=== PATIENT | male | born 1970 | race Caucasian/White ===

== ENCOUNTER → 2016-07-22 | Outpatient (CLI) | payer BC ==
[~2016-07-22] MED LIST: ASPI-232 PO; CETI10TA84 PO; CITA20TA4 PO; FLUT0.15 NAE; PROB1TAB16; TOPI25TA99 PO; TPRSR25 PO; XRL10 PO
[2016-07-22 13:23] LABS: ESTIMATED AVERAGE GLUCOSE 123 mg/dl; HA1C FLAG Normal (Normal)
[2016-07-22 14:24] LABS: ALT/SGPT 28 U/L (12-78); AST/SGOT 14 U/L (15-37); BLOOD UREA NITROGEN 13 mg/dl (7-18); BUN/CREATININE RATIO 11.8 (10-20); CARBON DIOXIDE 25 mmol/L (21-32); CHLORIDE 109 mmol/L (98-107); CHOLESTEROL 167 mg/dl (0-200); GLUCOSE 98 mg/dl (70-99); POTASSIUM 4.6 mmol/L (3.5-5.1); SODIUM 143 mmol/L (136-145); TRIGLYCERIDES 171 mg/dl (0-150); VERY LOW DENSITY LIPOPROT CALC 34 mg/dl
[2016-07-22 14:27] LABS: ALB/GLOB RATIO 1.1 (0.9-2); ALKALINE PHOSPHATASE 83 U/L (45-117); HDL CHOLESTEROL 42 mg/dl; LDL CHOLESTEROL CALCULATED 91 mg/dl
[2016-07-22 14:31] LABS: CALCIUM 8.7 mg/dl (8.5-10.1)
== END | disposition home or self-care (01) ==
LOC: C.LABMFLN 09:28
PROVIDERS: ATTEND Family Medicine
DX: E78.5 Hyperlipidemia, unspecified (principal); R73.03 Prediabetes

== ENCOUNTER → 2016-09-16 | Outpatient (CLI) | payer BC ==
--- NOTE | 2016-09-16 15:59 | DIAGNOSTIC IMAGING REPORT ---
CHEST 2 VIEWS ROUTINE CLINICAL HISTORY: COUGH HEADACHES COMPARISON STUDY: No previous studies for comparison. FINDINGS: The heart is at the upper limits of normal in size. There is no failure. There is no lobar consolidation. There are mild basilar atelectatic changes. The patient appears mildly hyperinflated. No pleural effusions are visualized.[ IMPRESSION: No active disease in the chest. Electronically signed by: Niles Sorenson M.D. 09/16/2016 3:58 PM Dictated Date/Time: 09/16/2016 3:57 PM
[2016-09-16 17:03] LABS: BASO % 0.3 %; BASO ABS # 0.02 K/uL (0-0.2); COMPLETE YES; EOS % 2.9 %; HEMATOCRIT 44.8 % (42-52); IG% 0.3 %; LYMPH % 40.8 %; LYMPH ABS # 3.07 K/uL (1.2-3.4); MEAN CELL VOLUME 88.2 fL (80-100); MEAN CORPUSCULAR HEMOGLOBIN 30.7 pg (25-34); MEAN CORPUSCULAR HGB CONC 34.8 g/dl (32-36); MEAN PLATELET VOLUME 11.3 fL (7.4-10.4); MONO % 11.8 %; NEUT % 43.9 %; PLATELET COUNT 151 K/uL (130-400); RED BLOOD COUNT 5.08 M/uL (4.7-6.1); WHITE BLOOD COUNT 7.53 K/uL (4.8-10.8)
[2016-09-16 17:21] LABS: BLOOD UREA NITROGEN 13 mg/dl (7-18); BUN/CREATININE RATIO 10.5 (10-20); CALCIUM 8.6 mg/dl (8.5-10.1); CARBON DIOXIDE 25 mmol/L (21-32); CHLORIDE 110 mmol/L (98-107); GLUCOSE 109 mg/dl (70-99); POTASSIUM 3.6 mmol/L (3.5-5.1); SODIUM 141 mmol/L (136-145)
[2016-09-16 17:32] LABS: ALB/GLOB RATIO 1.2 (0.9-2); ALKALINE PHOSPHATASE 85 U/L (45-117); ALT/SGPT 31 U/L (12-78); AST/SGOT 12 U/L (15-37); C-REACTIVE PROTEIN 0.34 mg/dl (0-0.29); RHEUMATOID FACTOR < 10.0 U/mL (0-15)
[2016-09-16 17:57] LABS: LYME DISEASE AB IGG NEG (NEG); LYME DISEASE AB IGM NEG (NEG)
[2016-09-25 16:37] LABS: EHRLICHIA CHAFF IGG AB <1:64 (<1:64); EHRLICHIA CHAFF IGM AB <1:20 (<1:20)
[2016-09-25 20:41] LABS: ANAPLASMA PHAGOCYTOPHIL IGG <1:64 (<1:64); ANAPLASMA PHAGOCYTOPHIL IGM <1:20 (<1:20)
== END | disposition home or self-care (01) ==
LOC: C.RADBC 14:58
PROVIDERS: ATTEND Physician Assistant
DX: R53.83 Other fatigue (principal); M25.50 Pain in unspecified joint

== ENCOUNTER 2017-02-24 10:56 | Emergency (ER) | payer BC ==
[~2017-02-24] VITALS: Ht 185.4 cm; Wt 133.0 kg
[2017-02-24 11:06] VITALS: TEMP 36.8; Ht 185.4 cm; Wt 133.0 kg
[2017-02-24] MEDS ORDERED: CHOL2000 PO (11:30)
[2017-02-24 11:39] LABS: BASO % 0.4 %; BASO ABS # 0.03 K/uL (0-0.2); EOS % 3.2 %; EOS ABS # 0.22 K/uL (0-0.5); HEMATOCRIT 47.4 % (42-52); HEMOGLOBIN 16.9 g/dL (14.0-18.0); IG# 0.01 K/uL (0.00-0.02); LYMPH % 35.5 %; LYMPH ABS # 2.47 K/uL (1.2-3.4); MEAN CELL VOLUME 89.8 fL (80-100); MEAN CORPUSCULAR HGB CONC 35.7 g/dl (32-36); MEAN PLATELET VOLUME 11.5 fL (7.4-10.4); MONO % 12.7 %; MONO ABS # 0.88 K/uL (0.11-0.59); NEUT % 48.1 %; NEUT ABS # 3.34 K/uL (1.4-6.5); PLATELET COUNT 167 K/uL (130-400); RED CELL DISTRIBUTION WIDTH CV 12.9 % (11.5-14.5); RED CELL DISTRIBUTION WIDTH SD 42.2 fL (36.4-46.3); WHITE BLOOD COUNT 6.95 K/uL (4.8-10.8)
[2017-02-24 11:50] LABS: PTT PATIENT 25.1 SECONDS (21.0-31.0)
[2017-02-24 12:00] LABS: CALCIUM 8.9 mg/dl (8.5-10.1); CREATININE 1.12 mg/dl (0.60-1.40); POTASSIUM 4.1 mmol/L (3.5-5.1)
--- NOTE | 2017-02-24 12:28 | DIAGNOSTIC IMAGING REPORT ---
ULTRASOUND RIGHT LOWER EXTREMITY VENOUS CLINICAL HISTORY: Right leg pain and swelling. COMPARISON STUDY: Right lower extremity venous ultrasound dated 09/02/2015. TECHNIQUE: Real-time, grayscale, and color Doppler sonography of the deep veins of the right lower extremity was performed from the inguinal crease to the calf. Compression and augmentation were utilized. FINDINGS: There is no sonographic evidence of deep venous thrombosis identified in the right lower extremity. The common femoral, superficial femoral, and popliteal veins are patent and normally compressible. The greater saphenous vein and the profunda femoris vein at the junction with the common femoral vein are clear. The visualized calf veins are patent. Newly occlusive superficial venous thrombosis in the greater saphenous vein from the proximal thigh to the mid calf. IMPRESSION: 1. There is no sonographic evidence of deep venous thrombosis identified in the right lower extremity. 2. Superficial venous thrombus is seen throughout the greater saphenous vein as above. Electronically signed by: Raj Alvarenga M.D. 02/24/2017 12:27 PM Dictated Date/Time: 02/24/2017 12:26 PM
[2017-02-24 12:52] VITALS: BP 125/82; PULSE 70; O2SAT 98
--- NOTE | 2017-02-24 13:41 | EMERGENCY ROOM VISIT NOTE ---
History First contact with patient: 11:16 Chief Complaint: LEG PAIN,LEG INJURY Stated Complaint: PAIN IN R LEG, BLOOD CLOT History of Present Illness The patient is a 46 year old male who presents to the Emergency Room with complaints of pain in his right leg. The patient reports a history of blood clots. He states that he has had pain in the right leg for one week. He does report that he recently got orthotics due to back problems and is unsure if this could be contributing to his pain. He states that the pain is in the right leg and extends from the thigh to the calf. The pain started in the calf and worked its way up into the thigh. The patient states that he "vapes" but does not smoke cigarettes. He does report that he had workup for his blood clot in the past and all of the hypercoagulable testing was performed at that time. He denies any chest pain or shortness of breath. The patient took Xarelto previous clots, but is not on any anticoagulants at this time. Review of Systems A complete 10 point review of systems was reviewed with the patient with pertinent positives and negatives as per history of present illness. All else were negative. Past Medical/Surgical History Medical Problems: (1) Aortic Valve Disorder (2) Hyperlipidemia, Unspecified (3) Nonrheumatic Aortic (Valve) Insufficiency (4) Thoracic Aortic Aneurysm, Without Rupture Surgical Problems: (1) No history of previous surgery Social History Smoking Status: Current Every Day Smoker Alcohol Use: occasionally Marital Status: Housing Status: lives with family Occupation Status: employed Current/Historical Medications Scheduled Aspirin (Aspir-81), 81 MG PO DAILY Cholecalciferol (Vitamin D3), 1 CAP PO DAILY Citalopram Hydrobromide (Citalopram Hydrobromide), 30 MG PO DAILY Metoprolol Succinate (Metoprolol Succinate ER), 25 MG PO DAILY Topiramate (Topamax ), 25 MG PO QAM Topiramate (Topamax ), 50 MG PO HS Scheduled PRN Cetirizine (Zyrtec), 10 MG PO DAILY PRN for Allergy Symptoms Fluticasone Propionate (Nasal) (Flonase Allergy Relief), 2 SPRAYS APOLONIA DAILY PRN for Allergy Symptoms Miscellaneous Medications Probiotic Product (Probiotic), Unknown Dose Physical Exam Vital Signs Date Time Temp Pulse Resp B/P (MAP) Pulse Ox O2 Delivery O2 Flow Rate FiO2 1/11/18 12:52 70 18 125/82 98 Room Air 02/24/17 11:06 36.8 74 20 138/87 93 Room Air Physical Exam VITALS: Vitals are noted on the nurse's note and reviewed by myself. Vital signs stable. GENERAL: This is a 46-year-old male, in no acute distress, nondiaphoretic, well- developed well-nourished. HEART: Regular rate and rhythm without murmurs gallops or rubs. LUNGS: Clear to auscultation bilaterally without wheezes, rales or rhonchi. EXTREMITIES: Tenderness of the right thigh and calf, palpable varicosities. There is mild erythema without obvious edema. Dorsalis pedis pulse 2+. NEURO: Patient was alert and oriented to person place and time. Medical Decision & Procedures ER Provider Diagnostic Interpretation: ULTRASOUND RIGHT LOWER EXTREMITY VENOUS CLINICAL HISTORY: Right leg pain and swelling. COMPARISON STUDY: Right lower extremity venous ultrasound dated 09/02/2015. TECHNIQUE: Real-time, grayscale, and color Doppler sonography of the deep veins of the right lower extremity was performed from the inguinal crease to the calf. Compression and augmentation were utilized. FINDINGS: There is no sonographic evidence of deep venous thrombosis identified in the right lower extremity. The common femoral, superficial femoral, and popliteal veins are patent and normally compressible. The greater saphenous vein and the profunda femoris vein at the junction with the common femoral vein are clear. The visualized calf veins are patent. Newly occlusive superficial venous thrombosis in the greater saphenous vein from the proximal thigh to the mid calf. IMPRESSION: 1. There is no sonographic evidence of deep venous thrombosis identified in the right lower extremity. 2. Superficial venous thrombus is seen throughout the greater saphenous vein as above. Laboratory Results 02/24/17 11:20 Red Blood Count 5.28, Mean Corpuscular Volume 89.8, Mean Corpuscular Hemoglobin 32.0, Mean Corpuscular Hemoglobin Concent 35.7, Mean Platelet Volume 11.5, Neutrophils (%) (Auto) 48.1, Lymphocytes (%) (Auto) 35.5, Monocytes (%) (Auto) 12.7, Eosinophils (%) (Auto) 3.2, Basophils (%) (Auto) 0.4, Neutrophils # (Auto ) 3.34, Lymphocytes # (Auto) 2.47, Monocytes # (Auto) 0.88, Eosinophils # (Auto ) 0.22, Basophils # (Auto) 0.03 02/24/17 11:20 Test 02/24/17 11:20 White Blood Count 6.95 K/uL (4.8-10.8) Red Blood Count 5.28 M/uL (4.7-6.1) Hemoglobin 16.9 g/dL (14.0-18.0) Hematocrit 47.4 % (42-52) Mean Corpuscular Volume 89.8 fL (80-100) Mean Corpuscular Hemoglobin 32.0 pg (25-34) Mean Corpuscular Hemoglobin Concent 35.7 g/dl (32-36) Platelet Count 167 K/uL (130-400) Mean Platelet Volume 11.5 fL (7.4-10.4) Neutrophils (%) (Auto) 48.1 % Lymphocytes (%) (Auto) 35.5 % Monocytes (%) (Auto) 12.7 % Eosinophils (%) (Auto) 3.2 % Basophils (%) (Auto) 0.4 % Neutrophils # (Auto) 3.34 K/uL (1.4-6.5) Lymphocytes # (Auto) 2.47 K/uL (1.2-3.4) Monocytes # (Auto) 0.88 K/uL (0.11-0.59) Eosinophils # (Auto) 0.22 K/uL (0-0.5) Basophils # (Auto) 0.03 K/uL (0-0.2) RDW Standard Deviation 42.2 fL (36.4-46.3) RDW Coefficient of Variation 12.9 % (11.5-14.5) Immature Granulocyte % (Auto) 0.1 % Immature Granulocyte # (Auto) 0.01 K/uL (0.00-0.02) Prothrombin Time 10.0 SECONDS (9.0-12.0) Prothromb Time International Ratio 1.0 (0.9-1.1) Activated Partial Thromboplast Time 25.1 SECONDS (21.0-31.0) Partial Thromboplastin Ratio 1.0 Anion Gap 3.0 mmol/L (3-11) Est Creatinine Clear Calc Drug Dose 115.4 ml/min Estimated GFR () 89.5 Estimated GFR (Non- 77.3 BUN/Creatinine Ratio 12.3 (10-20) Calcium Level 8.9 mg/dl (8.5-10.1) Medical Decision Differential diagnosis includes DVT, superficial thrombosis, cellulitis, among others. The patient is a 46-year-old male who presents today complaining of right leg pain. Ultrasound of the right leg did show extensive superficial thrombosis, but no evidence of DVT. The patient will require anticoagulation. He has history of superficial thrombosis requiring anticoagulation the past. I am unsure if this will require lifelong anticoagulation, however the patient may follow-up with his primary care provider for this. He will be placed on Xarelto. He was instructed to return here with worsening symptoms or chest pain /shortness of breath. He verbalized understanding. Based on the patient's presentation and work up, I feel the patient is stable for outpatient treatment. The patient was educated to return to the emergency department for any worsening of their current condition or new/concerning symptoms. He will follow up with his PCP. Medication Reconcilliation Current Medication List: was personally reviewed by me Blood Pressure Screening Patient's blood pressure: Normal blood pressure Impression Primary Impression: Superficial thrombosis of right lower extremity Departure Information Dispostion Home / Self-Care Condition GOOD Referrals Genoveva Ulloa PA-C (PCP) Patient Instructions My [facility] EdCaliber, Rivaroxaban oral tablets Additional Instructions Xarelto as prescribed. You may use warm compresses on the leg to help with discomfort. Follow up with your primary care provider within one week. Return here immediately for any worsening pain, chest pain, shortness of breath , or other new/concerning symptoms.
== END 2017-02-24 13:46 | disposition home or self-care (01) ==
LOC: C.EDB 10:57 → C.EDA 13:46
DX: I82.811 Embolism and thrombosis of superficial veins of right lower extremity (principal); F17.290 Nicotine dependence, other tobacco product, uncomplicated; E78.5 Hyperlipidemia, unspecified; I35.1 Nonrheumatic aortic (valve) insufficiency; I71.2 Thoracic aortic aneurysm, without rupture; Z86.718 Personal history of other venous thrombosis and embolism

== ENCOUNTER → 2017-05-30 | Outpatient (CLI) | payer BC ==
[~2017-05-30] MED LIST changes: +CHOL2000 PO; -XRL10 PO
--- NOTE | 2017-05-30 10:03 | DIAGNOSTIC IMAGING REPORT ---
R HAND MIN 3 VIEWS ROUTINE CLINICAL HISTORY: ARTHRALGIA RIGHT HAND PAIN COMPARISON: None. DISCUSSION: No fractures or dislocations are visualized. The bony mineralization appears normal for age. There is no erosive disease. There is no significant joint space narrowing. IMPRESSION: 1. No evidence of fracture 2. No evidence of erosive disease Electronically signed by: Niles Sorenson M.D. 05/30/2017 10:02 AM Dictated Date/Time: 05/30/2017 10:01 AM
--- NOTE | 2017-05-30 10:04 | DIAGNOSTIC IMAGING REPORT ---
L HAND MIN 3 VIEWS ROUTINE CLINICAL HISTORY: M25.50 Arthralgia of multiple sites bilateral LEFT HAND PAIN COMPARISON: None. DISCUSSION: No fractures or dislocations are visualized. There is no erosive disease. There is no significant joint space narrowing. IMPRESSION: 1. No evidence of fracture 2. No evidence of erosive disease Electronically signed by: Niles Sorenson M.D. 05/30/2017 10:03 AM Dictated Date/Time: 05/30/2017 10:02 AM
== END | disposition home or self-care (01) ==
LOC: C.LABBC 09:27
PROVIDERS: ATTEND Family Medicine Adult Medicine
DX: M25.50 Pain in unspecified joint (principal)

== ENCOUNTER → 2017-07-05 | Outpatient (CLI) | payer BC ==
--- NOTE | 2017-07-05 14:54 | DIAGNOSTIC IMAGING REPORT ---
ULTRASOUND RIGHT LOWER EXTREMITY VENOUS CLINICAL HISTORY: Superficial thrombophlebitis. COMPARISON STUDY: Right lower extremity venous ultrasound dated 02/24/2017. TECHNIQUE: Real-time, grayscale, and color Doppler sonography of the deep veins of the right lower extremity was performed from the inguinal crease to the calf. Compression and augmentation were utilized. FINDINGS: There is no sonographic evidence of deep venous thrombosis identified in the right lower extremity. The common femoral, superficial femoral, and popliteal veins are patent and normally compressible. The greater saphenous vein and the profunda femoris vein at the junction with the common femoral vein are clear. The visualized calf veins are patent. There is chronic appearing thrombus within the greater saphenous vein in the mid to distal thigh. Age indeterminant superficial thrombus is seen within the distal calf. IMPRESSION: 1. There is no sonographic evidence of deep venous thrombosis identified in the right lower extremity. 2. Superficial venous thrombus as above. This is similar in appearance to the 02/24/2017 examination. Electronically signed by: Raj Alvarenga M.D. 07/05/2017 2:53 PM Dictated Date/Time: 07/05/2017 2:52 PM
== END | disposition home or self-care (01) ==
LOC: C.ULTRBC 14:18
PROVIDERS: ATTEND Physician Assistant Medical
DX: I80.9 Phlebitis and thrombophlebitis of unspecified site (principal); M79.604 Pain in right leg

== ENCOUNTER 2021-11-22 20:11 | Observation (INO) ==
[2021-11-22] MEDS ORDERED: SODIUM CHLORIDE 0.9% 1000ML 500 ML IV ONE (21:05)
--- NOTE | 2021-11-22 21:06 | Emergency Department Note ---
Impression & Plan Abscess of perineum ADMIT ED Provider Note HPI: The patient is a 51-year-old male with history of prediabetes, history of DVT, on apixaban, who presents the emergency department the chief complaint of painful mass between his scrotum and his rectum that has been worsening over the past 2 days. Patient states he is noted some tenderness and pain in this area. Patient states the pain was worsening throughout the day today and therefore he came to the ED for further assessment. On arrival here to the ED the patient is hemodynamically stable, he is in mild distress secondary to pain in the perineal area under his right side of his scrotum. He denies any dysuria, states he has not had any nausea or vomiting. Patient denies any recent fevers. ROS: -Skin: Fluctuance/pain/irritation in perineal area under right scrotum *10 point review systems was conducted and is otherwise negative unless stated above *Outpatient medications and allergy history reviewed PE: General: Alert HEENT: Normocephalic, trachea midline Eyes: Extraocular eye movement is intact, no scleral erythema Pulmonary: Clear to auscultation bilaterally, no wheezing Cardio: Regular rate and rhythm GI: Abdomen is soft, nontender : No suprapubic tenderness, there is an area of fluctuance and tenderness that is palpable in the perineum to the right side of the inferior scrotum and near the right gluteal cleft without any crepitus to palpation, no overlying erythema MSK: No evidence of trauma or malformation of the extremities, no edema Skin: No evidence of rash Neuro: Alert, no focal deficits 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 No intraperitoneal involvement. At least 2 liver cysts, larger 9 cm. Fat-containing umbilical hernia. Diverticulosis without acute diverticulitis. Radiologist: Jie Platt M.D. Interventions provided in ED: -IV Zosyn, IV morphine Medical Decision Making: Patient presented to the emergency department with some pain and tenderness in the area of his right perineum inferior to the right portion of the scrotum near the right gluteal cleft. CT imaging of this area was obtained and shows evidence of a peripheral enhancing fluid collection measuring approximately 3.7 cm in maximum diameter involving the superficial soft tissues of the inferior gluteal cleft. On my examination this does extend somewhat up towards the scrotum inferiorly. There is no palpable area of maximum fluctuance that I think could be easily drained in the ED. Patient is also noted to be on anticoagulation, he has a history of prediabetes, I feel that he is high risk for worsening of this infection that could potentially lead to gangrenous infection. I did discuss the case with on-call urology given the location of the fluid collection, discussed the case with Dr. Tang who did review CT imaging on the phone with me and stated he would be in agreement for consultation early in the morning to evaluate the patient for possible incision and drainage and is in agreement for admission with initiation of IV antibiotics at this time. I discussed this with the patient he is in agreement as well. He was given a dose of IV morphine for his pain and started on Zosyn in the ED prophylactically. [facility] hospitalist service was consulted for admission with urology cons ultation and the patient was admitted in stable condition for further care. Diagnosis: 1. Perineal abscess Disposition: Admit Henry Luna DO Emergency Medicine Past Med/Surg History Medical History (Updated 11/23/21 @ 13:28 by Henry Luna DO) Anxiety Aortic insufficiency follows DR. FLOOD>ECHO YEARLY "STABLE" Chronic obstructive pulmonary disease BEGINNING STAGES>NO INHALER Clostridioides difficile infection Deviated nasal septum Dyslipidemia Gastritis WITH ULCERS DX FEB 2021 - F/U REASON FOR UPCOMING PROCEDURE GERD without esophagitis Hearing loss History of anesthesia reaction 2008> [facility] > AFTER EXTUBATION, WAS UNABLE TO BREATHE> PT UNSURE OF OTHER DETAILS. REPORTS WAS HEAVY SMOKER AT THE TIME. WAS GIVEN SHOT TO TAKE EXTRA FLUID OUT OF BODY History of colon polyps History of COVID-19 12/2019>HOSPITALIZED IN [place] (PNX BILAT. LUNG CURRIE>DID NOT REQUIRE INTUBATION) History of gross hematuria Hx of blood clots 4YRS AGO > RIGHT LEG> WAS ON BLOOD THINNER, NOW JUST ASA, NO KNOWN CAUSE, JUST SUPERFICIAL PER PT Hypertension Migraine Obstructive sleep apnea NO CPAP Osteoarthritis Perianal abscess Prediabetes RECENT A1C ELEVATED, F/U IN JULY OR AUGUST 2021 Superficial thrombosis of right lower extremity Thoracic aortic aneurysm, without rupture Thyroid nodule NO FOLLOW UP NEEDED Umbilical hernia without obstruction and without gangrene Surgical History H/O inguinal hernia repair History of ankle surgery LEFT History of appendectomy History of arthroscopy LEFT KNEE History of carpal tunnel release RIGHT History of colonoscopy History of esophagogastroduodenoscopy (EGD) History of tooth extraction Hx of lipoma REMOVED FROM [facility] E[facility] AGE 3 [place] teeth removed Family History Father Prostate cancer Diabetes Grandmother (Paternal) Diabetes Other Allergic rhinitis Asthma No family history of adverse response to anesthesia Thoracic aortic aneurysm Denies family history of Ovarian cancer Myocardial infarction Breast cancer Lung cancer Colorectal cancer Social History Smoking Status: Current every day smoker Tobacco Type: Cigarettes Age Started Using Tobacco: 14; packs per day: 0.5; Cigarettes Per Day: 1/2 pack a day.; Second Hand Exposure: No; Do You Dip or Chew Tobacco: No; Tobacco Cessation Education Requested by Patient: No Hx Alcohol Use: Yes Alcohol type: beer Alcohol Intake Frequency Comment: 1-2 x/month Hx Substance Use: No Preferred Language: Peruvian Communication Ability: Effective Visual Impairment: Limited Hearing Ability: Normal Repairer Pump Required: No Beliefs That Will Affect Care: None marital status: Current Living Situation: Spouse current occupational status: employed 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 How many Children do You have: 1 Other Information That Helps Us Care for You: No Feels Safe at Home: Yes Safety Concerns: Feels Safe At This Time Childhood Exposure to Second-Hand Smoke: Yes caffeine: Yes (coffee ) Dental Care, Regularly: Yes Physical Activity Frequency: Does not Exercise Seatbelt Use: always Sunscreen Use: Yes Assistive Devices: None Allergies Allergies Allergy/AdvReac Type Severity Reaction Status Date / Time amoxicillin AdvReac Intermediate GI SYMPTOMS Verified 11/22/21 22:46 clavulanic acid AdvReac Intermediate GI SYMPTOMS Verified 11/22/21 22:46 prednisone AdvReac Intermediate hyperactivi Verified 11/22/21 22:46 ty Home Meds Home Medications Medication Instructions Recorded Confirmed cetirizine 10 mg tablet (Zyrtec) 10 mg PO QAM 02/02/19 11/22/21 rizatriptan 5 mg tablet 5 mg PO UD PRN Headache 06/11/21 11/22/21 metoprolol succinate 25 mg 25 mg PO QPM 06/19/21 11/22/21 tablet,extended release 24 hr citalopram 20 mg tablet 20 mg PO DAILY 08/11/21 11/22/21 azelastine 205.5 mcg (0.15 %) 2 spray intranasal DAILY 11/22/21 11/22/21 nasal spray Previous Rx's Medication Instructions Recorded topiramate 50 mg tablet (Topamax) 50 mg PO HS #90 tabs 11/07/20 OneTouch Delica Plus Lancet 33 #100 ea 07/10/21 gauge (lancets) OneTouch Verio Flex meter #1 ea 07/10/21 (blood-glucose meter) OneTouch Verio test strips (blood #100 ea 07/10/21 sugar diagnostic) apixaban 5 mg tablet (Eliquis) 5 mg PO BID #60 tabs 08/28/21 pravastatin 10 mg tablet 10 mg PO QAM #90 tabs 10/03/21 Results & Data (ED) Vital Signs Vital Signs - 24 hr 11/22/21 20:16 11/22/21 21:23 11/22/21 22:29 Temperature 36.3 C L Temperature Source Temporal Artery Scan Pulse Rate 88 Pulse Rate [Apical] 89 Pulse Rhythm Regular Pulse Strength Normal Respiratory Rate 20 18 Respiratory Effort / Characteristics Non-Labored Spontaneous Respiratory Depth Normal Respiratory Pattern Regular Blood Pressure 157/91 H Blood Pressure [Right Radial Artery] 129/63 Blood Pressure Mean 113 Blood Pressure Mean [Right Radial Artery] 85 Blood Pressure Position Sitting Blood Pressure Position [Right Radial Artery] Pulse Oximetry 93 96 96 Oxygen Delivery Method Room Air Room Air Room Air Sepsis Recent Fever Within 48 Hours No Sepsis New/Unexplained Change in Mental Status N/A Sepsis Action Taken by Nursing No Action Required 11/22/21 23:59 Temperature Temperature Source Pulse Rate Pulse Rate [Apical] 85 Pulse Rhythm Pulse Strength Respiratory Rate 20 Respiratory Effort / Characteristics Respiratory Depth Respiratory Pattern Blood Pressure Blood Pressure [Right Radial Artery] 122/61 Blood Pressure Mean Blood Pressure Mean [Right Radial Artery] 81 Blood Pressure Position Blood Pressure Position [Right Radial Artery] Sitting Pulse Oximetry 94 Oxygen Delivery Method Room Air Sepsis Recent Fever Within 48 Hours Sepsis New/Unexplained Change in Mental Status Sepsis Action Taken by Nursing Laboratory Data Result diagrams: 11/22/21 21:18 11/22/21 21:18 Lab Results 11/22/21 11/22/21 11/22/21 Range/Units 21:18 21:18 21:21 WBC 9.78 (4.8-10.8) K/ul RBC 5.66 (4.63-6.08) M/uL Hgb 17.0 (14.0-18.0) g/dl Hct 49.8 (40.1-51.0) % MCV 88.0 (80.0-100.0) fL MCH 30.0 (25.0-34.0) pg MCHC 34.1 (32.0-36.0) g/dL RDW Std Deviation 41.5 (36.4-46.3) fL RDW Coeff of Kade 13.0 (11.5-14.5) % Plt Count 176 (130-400) K/uL MPV 10.9 (9.4-12.4) fL Immature Gran % (Auto) 0.3 % Neut % (Auto) 63.1 % Lymph % (Auto) 18.6 % [place] % (Auto) 14.7 % Eos % (Auto) 2.6 % Baso % (Auto) 0.7 % Neut # (Auto) 6.17 (1.4-6.5) K/uL Lymph # (Auto) 1.82 (1.2-3.4) K/uL [place] # (Auto) 1.44 H (0.24-0.82) K/uL Eos # (Auto) 0.25 (0-0.50) K/uL Baso # (Auto) 0.07 (0-0.2) K/uL Immature Gran # (Auto) 0.03 H (0.00-0.02) K/uL Sodium 139 (136-145) mmol/L Potassium 4.2 (3.5-5.1) mmol/L Chloride 106 (98-107) mmol/L Carbon Dioxide 26 (21-32) mmol/L Anion Gap 7 (3-11) BUN 13 (6-23) mg/dl Creatinine 1.04 (0.6-1.4) mg/dl Est Cr Clr Drug Dosing 116.2 ml/min Est GFR ( Amer) 94.6 ml/min Est GFR (Non-Af Amer) 81.6 ml/min BUN/Creatinine Ratio 12.5 (10-20) Glucose 80 (70-99(Fasting)) mg/dl Calcium 8.9 (8.5-10.1) mg/dl Total Bilirubin 0.8 (0.2-1.0) mg/dl AST 19 (13-39) U/L ALT 17 (7-52) U/L Alkaline Phosphatase 89 (34-104) U/L Total Protein 7.0 (6.0-8.3) gm/dl Albumin 4.1 (3.4-5.0) gm/dl Globulin 2.9 (2.5-4.0) gm/dl Albumin/Globulin Ratio 1.4 (0.9-2) Urine Color Yellow Urine Appearance Clear (Clear) Urine pH 7.0 (4.5-7.5) Ur Specific Anita 1.020 (1.000-1.030) Urine Protein Negative (Negative) Urine Glucose (UA) Negative (Negative) Urine Ketones Negative (Negative) Urine Blood Negative (Negative) Urine Nitrite Negative (Negative) Urine Bilirubin Negative (Negative) Urine Urobilinogen Negative (Negative) Ur Leukocyte Esterase Negative (Negative) SARS-CoV-2, RNA, NAAT (NEGATIVE) 11/23/21 Range/Units 00:05 WBC (4.8-10.8) K/ul RBC (4.63-6.08) M/uL Hgb (14.0-18.0) g/dl Hct (40.1-51.0) % MCV (80.0-100.0) fL MCH (25.0-34.0) pg MCHC (32.0-36.0) g/dL RDW Std Deviation (36.4-46.3) fL RDW Coeff of Kade (11.5-14.5) % Plt Count (130-400) K/uL MPV (9.4-12.4) fL Immature Gran % (Auto) % Neut % (Auto) % Lymph % (Auto) % [place] % (Auto) % Eos % (Auto) % Baso % (Auto) % Neut # (Auto) (1.4-6.5) K/uL Lymph # (Auto) (1.2-3.4) K/uL [place] # (Auto) (0.24-0.82) K/uL Eos # (Auto) (0-0.50) K/uL Baso # (Auto) (0-0.2) K/uL Immature Gran # (Auto) (0.00-0.02) K/uL Sodium (136-145) mmol/L Potassium (3.5-5.1) mmol/L Chloride (98-107) mmol/L Carbon Dioxide (21-32) mmol/L Anion Gap (3-11) BUN (6-23) mg/dl Creatinine (0.6-1.4) mg/dl Est Cr Clr Drug Dosing ml/min Est GFR ( Amer) ml/min Est GFR (Non-Af Amer) ml/min BUN/Creatinine Ratio (10-20) Glucose (70-99(Fasting)) mg/dl Calcium (8.5-10.1) mg/dl Total Bilirubin (0.2-1.0) mg/dl AST (13-39) U/L ALT (7-52) U/L Alkaline Phosphatase (34-104) U/L Total Protein (6.0-8.3) gm/dl Albumin (3.4-5.0) gm/dl Globulin (2.5-4.0) gm/dl Albumin/Globulin Ratio (0.9-2) Urine Color Urine Appearance (Clear) Urine pH (4.5-7.5) Ur Specific Anita (1.000-1.030) Urine Protein (Negative) Urine Glucose (UA) (Negative) Urine Ketones (Negative) Urine Blood (Negative) Urine Nitrite (Negative) Urine Bilirubin (Negative) Urine Urobilinogen (Negative) Ur Leukocyte Esterase (Negative) SARS-CoV-2, RNA, NAAT NEGATIVE (NEGATIVE) Administered Medications Piperacillin Sod/Tazobactam (Sod 4.5 gm/ Dextrose) 120 mls @ 30 mls/hr IV Q8H [facility]; Protocol Stop: 11/30/21 05:59 Last Infusion: 11/23/21 10:59 Dose: 0 mls/hr Documented By: Admin: 11/23/21 06:55 Dose: 30 mls/hr Documented By: RES Morphine Sulfate (Morphine Sulfate 2 Mg/Ml Carp) 2 mg IV Q3H PRN PRN Reason: Pain (1,2,3,4,5) & Pre PT Stop: 12/07/21 02:07 Last Admin: 11/23/21 08:10 Dose: 2 mg Documented By: CS Discontinued Medications Sodium Chloride (Nss 1000ml) 500 mls @ 999 mls/hr IV .Q31M ONE Stop: 11/22/21 21:35 Last Infusion: 11/22/21 22:15 Dose: 0 mls/hr Documented By: Admin: 11/22/21 21:24 Dose: 999 mls/hr Documented By: BRENDA Piperacillin Sod/Tazobactam Sod (Zosyn) 4.5 gm in 120 mls @ 240 mls/hr IV NOW ONE Stop: 11/23/21 00:19 Last Infusion: 11/23/21 00:27 Dose: 0 mls/hr Documented By: Admin: 11/22/21 23:57 Dose: 240 mls/hr Documented By: GUILHERME Lactated Ringer's (Lr) 1,000 mls @ 100 mls/hr IV .Q10H KALA Stop: 11/23/21 18:30 Last Infusion: 11/23/21 12:02 Dose: 0 mls/hr Documented By: Admin: 11/23/21 08:17 Dose: 175 mls/hr Documented By: Infusion: 11/23/21 08:13 Dose: 100 mls/hr Documented By: Admin: 11/23/21 02:30 Dose: 175 mls/hr Documented By: RES Ioversol (Ioversol 350 Mg 100ml Prefilled Syringe) 93 ml IV ONCE ONE Stop: 11/22/21 22:18 Last Admin: 11/22/21 22:17 Dose: 93 ml Documented By: RHD Morphine Sulfate (Morphine Sulfate 4 Mg/Ml 1 Ml Carp\\Vial) 4 mg IV NOW STA Stop: 11/23/21 00:06 Last Admin: 11/23/21 00:09 Dose: 4 mg Documented By: GUILHERME Imaging Data Radiologist's Impression: Abdomen/Pelvis CT 11/22/21 21:[address] WITH IV CONTRAST CT DOSE: 1875.18 mGy.cm HISTORY: Acute pain of the pelvis and scrotum with possible abscess eval for deep abscess b/t scrotum and anus TECHNIQUE: Multiaxial CT images of the abdomen and pelvis were performed following the IV administration of 93 cc of Optiray, A dose lowering technique was utilized adhering to the principles of ALARA. COMPARISON STUDY: None. FINDINGS: Subsegmental bibasilar atelectasis. Nodular hyperdense consolidative foci within the posterior basal segment left lower lobe measure up to approximately 9 mm which may represent calcific granulomata or aspirated barium. No pneumatosis or pneumoperitoneum. Mild cardiomegaly. Unremarkable spleen, pancreas, gallbladder and adrenal glands. There are a few cysts within the liver measuring up to 9 cm. Mild right hemidiaphragmatic elevation. There is patency of the hepatic and portal veins. Unremarkable left kidney. There is a heterogeneously enhancing exophytic mass within the inferior pole right kidney measuring 2.7 x 2.7 x 2.7 cm. No hydronephrosis. The bilateral renal veins appear patent. Partial distention of the urinary bladder with mild wall thickening. Possible small fat filled right inguinal hernia with a portion of the urinary bladder extending towards the hernia ostium. Unremarkable prostate. Atherosclerosis of the aorta. Retroaortic left renal vein. No lymphadenopathy. Duodenal diverticulum. No bowel obstruction or bowel wall thickening. Colonic diverticulosis. Mild fecal retention. Appendectomy. Diastases recti with fat filled umbilical hernia, diastases of 2.3 cm. There is a peripherally enhancing fluid collection within the midline inferior gluteal cleft extending into the perineum measuring 4.4 x 2.3 x 3.5 cm. Inflammatory stranding extends into the posterior scrotum. No perianal fistula or supralevator extension identified. No acute fracture. Sclerotic focus within the L5 vertebral body is indeterminate, possibly a bone island. IMPRESSION: 1. 4.4 cm abscess of the inferior gluteal cleft extending into the perineum. Inflammatory stranding extends into the posterior scrotum. No perianal fistula o r supralevator extension. 2. 2.7 cm heterogeneously enhancing mass of the inferior pole right kidney. Renal cell carcinoma is the diagnosis of exclusion. This finding was rafaela led/faxed to the floor at time of dictation. 3. No adenopathy or evidence of metastatic disease. 4. No bowel obstruction or bowel wall thickening. 5. Colonic diverticulosis. 6. Additional findings as above. ACT 112: Positive. There are findings on this exam that require communication between the performing entity and the patient following Patient Test Result Information Act ([place] Act 112) guidelines. The above report was generated using voice recognition software. It may contain grammatical, syntax or spelling errors. Electronically signed by: Twin Coles M.D. 11/23/2021 8:10 AM Discharge Plan Visit Data Chief Complaint: Pilonidal Cyst Stated Complaint: LUMP IN RECTAL AREA ED Provider: Henry Luna Discharge Problem: Abscess of perineum Patient Disposition: Admitted As Inpatient Discharge Instructions Interventions: ED Discharge Assessment Last Done: 11/23/21 01:52
[2021-11-22 21:42] LABS: Appearance Urine Clear (Clear); Bilirubin Urine Negative (Negative); Blood Urine Negative (Negative); Color Urine Yellow; Glucose Urine UA Negative (Negative); Ketones Urine Negative (Negative); Leukocyte Esterase Urine Negative (Negative); Nitrite Urine Negative (Negative); Protein Urine Negative (Negative); Urobilinogen Urine Negative (Negative)
[2021-11-22 21:51] LABS: Basophils # (auto) 0.07 K/uL (0-0.2); Basophils % (auto) 0.7 %; Eosinophils # (auto) 0.25 K/uL (0-0.50); Eosinophils % (auto) 2.6 %; Hematocrit (blood only) 49.8 % (40.1-51.0); Immature Granulocytes # (auto) 0.03 K/uL (0.00-0.02); Immature Granulocytes % (auto) 0.3 %; Lymphocytes # (auto) 1.82 K/uL (1.2-3.4); Lymphocytes % (auto) 18.6 %; Mean Corpuscular Hgb Conc 34.1 g/dL (32.0-36.0); Mean Platelet Volume 10.9 fL (9.4-12.4); Monocytes # (auto) 1.44 K/uL (0.24-0.82); Monocytes % (auto) 14.7 %; Neutrophils # (auto) 6.17 K/uL (1.4-6.5); Neutrophils % (auto) 63.1 %; Platelet Count 176 K/uL (130-400); RDW Standard Deviation 41.5 fL (36.4-46.3); Red Blood Count 5.66 M/uL (4.63-6.08); White Blood Count 9.78 K/ul (4.8-10.8)
[2021-11-22 22:03] LABS: Albumin Globulin Ratio 1.4 (0.9-2); Albumin Level 4.1 gm/dl (3.4-5.0); BUN Creatinine Ratio 12.5 (10-20); Bilirubin,Total 0.8 mg/dl (0.2-1.0); Calcium 8.9 mg/dl (8.5-10.1); Creatinine Clr Calc Pharmacy 116.2 ml/min; Est GFR (African American) 94.6 ml/min; Est GFR (Non-African American) 81.6 ml/min; Globulin 2.9 gm/dl (2.5-4.0); Potassium 4.2 mmol/L (3.5-5.1)
[2021-11-22] MEDS ORDERED: IOVERSOL 350 MG 100mL Prefilled Syringe IV ONE (22:17)
[2021-11-22] MEDS ORDERED: PIPERACILLIN/TAZOBACTAM 4.5 GM/120 ML BAG IV ONE (23:50)
[2021-11-23] MEDS ORDERED: MoRPHine SULFATE 4 MG/ML 1 ML CARP\\VIAL IV STA (00:05)
--- NOTE | 2021-11-23 01:06 | History & Physical Report ---
Date of Service November 23, 2021 Assessment & Plan (1) Perianal abscess: Plan: Mr. Brown is a 51 yo male with PMHx of DVT currently on anticoagulation, migraine, HLD, aortic insufficiency, thoracic aortic aneurysm, GERD, anxiety, and prediabetes admitted to [facility] on 11/23/21 due to perianal abscess. Perianal abscess - Perineum with significant tenderness to palpation - Currently afebrile and without leukocytosis - CT abd/pelvis STATRAD read 11/23/21: peripheral enhancing fluid collection measures 2.5 x 3.7 x 3 cm involving the superficial soft tissues of the inferior gluteal cleft - Urology consulted. Recommends admission, possible I&D tomorrow - Will make patient NPO in preparation for potential procedure tomorrow - Continue IV abx therapy with Zosyn until abx can be converted to po - Continue with IV analgesic - Repeat CBC in AM DVT - Patient with recent distal DVT with large clot burden of great saphenous vein, for which he is on Eliquis for anticoagulation - Patient notes that he is only intending to be on AC for 1 more week (for total of 3 months AC) - Will hold tomorrow morning's dose of Eliquis in preparation for potential procedure - No current LE pain, swelling, or rash Hyperlipidemia - Continue home pravastatin Thoracic aortic aneurysm w/o rupture - Patient followed by cardiology - Notes reviewed; last OVN 08/11/21 - Patient to avoid valsalva maneuver while lifting and no heavy lifting - Continue home metoprolol Prediabetes - States diet controlled; no medical therapy - Will check BSGs ACHS and q6h while NPO GERD - Patient previously on Nexium (states stopped about 2 months ago) - Reports recent increase in symptoms of GERD - Encouraged patient to f/u with PCP and outpatient GI as established Anxiety - Continue home Celexa Migraines - Continue home Topamax FENGI: NPO, IVF with LR @ 175 cc/hr DVT PPx: On Eliquis at home; holding in case of potential procedure tomorrow Dispo: Admit to medsurg Code status: FULL CODE (2) Dyslipidemia: (3) Thoracic aortic aneurysm, without rupture: (4) Prediabetes: (5) GERD without esophagitis: (6) Anxiety: (7) DVT (deep venous thrombosis): Plan Pt seen/examined in conjunction with resident MD Kyung Meraz. Orders and plan of admission discussed with resident. 51 y/o M Hx HTN, HLD, DVT, aortic regurgitation, aortic aneurysm, obese. Recently developed pain and swelling between anus and scrotum. A 2.5 x 3.7cm abscess was demonstrated on CT. O/E Gen: AAO x 3 Head/neck: Atraumatic, No JVD Heart: S1,2 R, no murmurs Lungs/chest: CTAB Abd: NT, ND, BS + Ext: No CCE Neuro: No deficits Skin: No ulcers or rashes P: 1) Abscess - urology to perform I&D. Placed on Zosyn. 2) HTN - cont metoprolol 3) HLD - cont statin 4) Pt is taking Eliquis for a DVT which is held prior to the procedure. Full code Total time for this admit including review of labs, meds, imaging, records - discussion with pt and ER attending - 35 min History of Present Illness Primary Care Provider: Cuba Alvarado DO Patient is a 51 yo male with PMHx of DVT currently on anticoagulation, migraine, HLD, aortic insufficiency, thoracic aortic aneurysm, GERD, anxiety, and prediabetes who presented to [facility] ER on 11/22/21 due to perineal pain. Patient states that 2 days ago, he noticed an acute onset of pain between the scrotum and anus with an associated "lump." Pain has progressively worsened and was rated at a 7/10 today. The pain is exacerbated with movement or sitting. Patient got a mirror to try to visualize the area of pain and noticed that there was some swelling and the area "looked purple." There is no reported discharge, drainage, or erythema. He has no hx of similar episodes. Patient denies fever, chills, abd pain, nausea, vomiting, diarrhea, constipation, urinary symptoms (including hematuria, dysuria, urinary frequency, or urinary retention), back pain, weakness, numbness, or tingling. In the ER, CT abd/pelvis revealed a "peripheral enhancing fluid collection measures 2.5 x 3.7 x 3 cm involving the superficial soft tissues of the inferior gluteal cleft." Labs unremarkable including no leukocytosis. UA unremarkable. Patient hemodynamically stable. He notes that IV analgesic has improved the pain from a 7/10 to 1-2/10. COVID negative. Urology was consulted and recommended admission for I&D tomorrow. Allergies Allergy/AdvReac Type Severity Reaction Status Date / Time amoxicillin AdvReac Intermediate GI SYMPTOMS Verified 11/22/21 22:46 clavulanic acid AdvReac Intermediate GI SYMPTOMS Verified 11/22/21 22:46 prednisone AdvReac Intermediate hyperactivi Verified 11/22/21 22:46 ty Home Medications Medication Instructions Recorded Confirmed Type cetirizine 10 mg tablet (Zyrtec) 10 mg PO QAM 02/02/19 11/22/21 History topiramate 50 mg tablet (Topamax) 50 mg PO HS #90 tabs 11/07/20 11/22/21 Rx rizatriptan 5 mg tablet 5 mg PO UD PRN Headache 06/11/21 11/22/21 History metoprolol succinate 25 mg 25 mg PO QPM 06/19/21 11/22/21 History tablet,extended release 24 hr OneTouch Delica Plus Lancet 33 #100 ea 07/10/21 10/30/21 Rx gauge (lancets) OneTouch Verio Flex meter #1 ea 07/10/21 10/30/21 Rx (blood-glucose meter) OneTouch Verio test strips (blood #100 ea 07/10/21 10/30/21 Rx sugar diagnostic) citalopram 20 mg tablet 20 mg PO DAILY 08/11/21 11/22/21 History apixaban 5 mg tablet (Eliquis) 5 mg PO BID #60 tabs 08/28/21 11/22/21 Rx pravastatin 10 mg tablet 10 mg PO QAM #90 tabs 10/03/21 11/22/21 Rx azelastine 205.5 mcg (0.15 %) 2 spray intranasal DAILY 11/22/21 11/22/21 History nasal spray Past Med/Surg History Medical History (Updated 11/23/21 @ 01:20 by Kyung Meraz DO) Anxiety Aortic insufficiency follows DR. FLOOD>ECHO YEARLY "STABLE" Chronic obstructive pulmonary disease BEGINNING STAGES>NO INHALER Clostridioides difficile infection Deviated nasal septum Dyslipidemia Gastritis WITH ULCERS DX FEB 2021 - F/U REASON FOR UPCOMING PROCEDURE GERD without esophagitis Hearing loss History of anesthesia reaction 2008> [facility] > AFTER EXTUBATION, WAS UNABLE TO BREATHE> PT UNSURE OF OTHER DE TAILS. REPORTS WAS HEAVY SMOKER AT THE TIME. WAS GIVEN SHOT TO TAKE EXTRA FLUID OUT OF BODY History of colon polyps History of COVID-19 12/2019>HOSPITALIZED IN [place] (PNX BILAT. LUNG CURRIE>DID NOT REQUIRE INTUBATION) History of gross hematuria Hx of blood clots 4YRS AGO > RIGHT LEG> WAS ON BLOOD THINNER, NOW JUST ASA, NO KNOWN CAUSE, JUST SUPERFICIAL PER PT Hypertension Migraine Obstructive sleep apnea NO CPAP Osteoarthritis Perianal abscess Prediabetes RECENT A1C ELEVATED, F/U IN JULY OR AUGUST 2021 Superficial thrombosis of right lower extremity Thoracic aortic aneurysm, without rupture Thyroid nodule NO FOLLOW UP NEEDED Umbilical hernia without obstruction and without gangrene Surgical History H/O inguinal hernia repair History of ankle surgery LEFT History of appendectomy History of arthroscopy LEFT KNEE History of carpal tunnel release RIGHT History of colonoscopy History of esophagogastroduodenoscopy (EGD) History of tooth extraction Hx of lipoma REMOVED FROM BEHIND BILAT EARS AGE 3 [place] teeth removed Family History Father Prostate cancer Diabetes Grandmother (Paternal) Diabetes Other Allergic rhinitis Asthma No family history of adverse response to anesthesia Thoracic aortic aneurysm Denies family history of Ovarian cancer Myocardial infarction Breast cancer Lung cancer Colorectal cancer Social History Smoking Status: Current every day smoker Tobacco Type: Cigarettes Age Started Using Tobacco: 14; packs per day: 0.5; Cigarettes Per Day: 1/2 pack a day.; Second Hand Exposure: No; Do You Dip or Chew Tobacco: No; Tobacco Cessation Education Requested by Patient: No Hx Alcohol Use: Yes Alcohol type: beer Alcohol Intake Frequency Comment: 1-2 x/month Hx Substance Use: No Preferred Language: Libyan Communication Ability: Effective Visual Impairment: Limited Hearing Ability: Normal Unix Systems Administrator Required: No Beliefs That Will Affect Care: None marital status: Current Living Situation: Spouse current occupational status: employed 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 Well developed and well nourished. Vital signs reviewed as above. EYES: EOMI. Anicteric sclerae. HENT: Moist mucous membranes. RESPIRATORY: Clear to auscultation bilaterally. No wheezing, rales, or rhonchi. CARDIOVASCULAR: Regular rate and rhythm. No murmurs. No JVD. ABDOMEN: Soft and non-tender. Normal bowel sounds. GENITOURINARY: Significant perineal tenderness to palpation. The perineum is inflamed but no central lesion. No discharge or drainage. No erythema. EXTREMITIES: No edema. Non-tender. SKIN: Warm, dry. NEUROLOGIC: A/O x3. Normal speech. No focal neurological deficits. No sensorimotor deficits. PSYCHIATRIC: Cooperative. Appropriate mood and affect. Results & Data Results & Data ([facility]) Vital Signs (Past 12 Hours) Vital Signs Temp Pulse Pulse Resp BP BP Pulse Ox 11/22/21 23:59 85 20 122/61 94 11/22/21 22:29 89 18 129/63 96 11/22/21 21:23 96 11/22/21 20:16 36.3 C L 88 20 157/91 H 93 O2 Del Method 11/22/21 23:59 Room Air 11/22/21 22:29 Room Air 11/22/21 21:23 Room Air 11/22/21 20:16 Room Air Laboratory Results 11/23/21 11/22/21 11/22/21 Range/Units 00:05 21:21 21:18 WBC (4.8-10.8) K/ul RBC (4.63-6.08) M/uL Hgb (14.0-18.0) g/dl Hct (40.1-51.0) % MCV (80.0-100.0) fL MCH (25.0-34.0) pg MCHC (32.0-36.0) g/dL RDW Std Deviation (36.4-46.3) fL RDW Coeff of Kade (11.5-14.5) % Plt Count (130-400) K/uL MPV (9.4-12.4) fL Immature Gran % (Auto) % Neut % (Auto) % Lymph % (Auto) % Foard % (Auto) % Eos % (Auto) % Baso % (Auto) % Neut # (Auto) (1.4-6.5) K/uL Lymph # (Auto) (1.2-3.4) K/uL Foard # (Auto) (0.24-0.82) K/uL Eos # (Auto) (0-0.50) K/uL Baso # (Auto) (0-0.2) K/uL Immature Gran # (Auto) (0.00-0.02) K/uL Sodium 139 (136-145) mmol/L Potassium 4.2 (3.5-5.1) mmol/L Chloride 106 (98-107) mmol/L Carbon Dioxide 26 (21-32) mmol/L Anion Gap 7 (3-11) BUN 13 (6-23) mg/dl Creatinine 1.04 (0.6-1.4) mg/dl Est Cr Clr Drug Dosing 116.2 ml/min Est GFR ( Amer) 94.6 ml/min Est GFR (Non-Af Amer) 81.6 ml/min BUN/Creatinine Ratio 12.5 (10-20) Glucose 80 (70-99(Fasting)) mg/dl Calcium 8.9 (8.5-10.1) mg/dl Total Bilirubin 0.8 (0.2-1.0) mg/dl AST 19 (13-39) U/L ALT 17 (7-52) U/L Alkaline Phosphatase 89 (34-104) U/L Total Protein 7.0 (6.0-8.3) gm/dl Albumin 4.1 (3.4-5.0) gm/dl Globulin 2.9 (2.5-4.0) gm/dl Albumin/Globulin Ratio 1.4 (0.9-2) Urine Color Yellow Urine Appearance Clear (Clear) Urine pH 7.0 (4.5-7.5) Ur Specific [place] 1.020 (1.000-1.030) Urine Protein Negative (Negative) Urine Glucose (UA) Negative (Negative) Urine Ketones Negative (Negative) Urine Blood Negative (Negative) Urine Nitrite Negative (Negative) Urine Bilirubin Negative (Negative) Urine Urobilinogen Negative (Negative) Ur Leukocyte Esterase Negative (Negative) SARS-CoV-2, RNA, NAAT NEGATIVE (NEGATIVE) 11/22/21 Range/Units 21:18 WBC 9.78 (4.8-10.8) K/ul RBC 5.66 (4.63-6.08) M/uL Hgb 17.0 (14.0-18.0) g/dl Hct 49.8 (40.1-51.0) % MCV 88.0 (80.0-100.0) fL MCH 30.0 (25.0-34.0) pg MCHC 34.1 (32.0-36.0) g/dL RDW Std Deviation 41.5 (36.4-46.3) fL RDW Coeff of Kade 13.0 (11.5-14.5) % Plt Count 176 (130-400) K/uL MPV 10.9 (9.4-12.4) fL Immature Gran % (Auto) 0.3 % Neut % (Auto) 63.1 % Lymph % (Auto) 18.6 % Foard % (Auto) 14.7 % Eos % (Auto) 2.6 % Baso % (Auto) 0.7 % Neut # (Auto) 6.17 (1.4-6.5) K/uL Lymph # (Auto) 1.82 (1.2-3.4) K/uL Foard # (Auto) 1.44 H (0.24-0.82) K/uL Eos # (Auto) 0.25 (0-0.50) K/uL Baso # (Auto) 0.07 (0-0.2) K/uL Immature Gran # (Auto) 0.03 H (0.00-0.02) K/uL Sodium (136-145) mmol/L Potassium (3.5-5.1) mmol/L Chloride (98-107) mmol/L Carbon Dioxide (21-32) mmol/L Anion Gap (3-11) BUN (6-23) mg/dl Creatinine (0.6-1.4) mg/dl Est Cr Clr Drug Dosing ml/min Est GFR ( Amer) ml/min Est GFR (Non-Af Amer) ml/min BUN/Creatinine Ratio (10-20) Glucose (70-99(Fasting)) mg/dl Calcium (8.5-10.1) mg/dl Total Bilirubin (0.2-1.0) mg/dl AST (13-39) U/L ALT (7-52) U/L Alkaline Phosphatase (34-104) U/L Total Protein (6.0-8.3) gm/dl Albumin (3.4-5.0) gm/dl Globulin (2.5-4.0) gm/dl Albumin/Globulin Ratio (0.9-2) Urine Color Urine Appearance (Clear) Urine pH (4.5-7.5) Ur Specific [place] (1.000-1.030) Urine Protein (Negative) Urine Glucose (UA) (Negative) Urine Ketones (Negative) Urine Blood (Negative) Urine Nitrite (Negative) Urine Bilirubin (Negative) Urine Urobilinogen (Negative) Ur Leukocyte Esterase (Negative) SARS-CoV-2, RNA, NAAT (NEGATIVE) Diagnostic Findings [facility] Patient: OVIDIO BROWN (Male) : 66 Status: ER Date: 11/22/21 22:26 Room #: History: 93 ML OPTIRAY, NO APPENDIX, eval for zuleyka p abscess b/t scrotum and anus Slices: [phone] Priors: Tech: Sonny Ferguson @ [id number] Exams: CT ABDOMEN & PELVIS With Contrast Contrast: IV Amt: 93 ML OPTIRAY Accession Numbers: [id number] Referring Physician: REFERRED SELF Preliminary Findings Only See Final Report For Complete Findings CT ABDOMEN & PELVIS With Contrast: Peripheral enhancing fluid collection measures 2.5 x 3.7 x 3 cm involving the superficial soft tissues of the inferior gluteal cleft. No intraperitoneal involvement. At least 2 liver cysts, larger 9 cm. Fat-containing umbilical hernia. Diverticulosis without acute diverticulitis. Radiologist: Jie Platt M.D. Study ready at 22:30 and initial results transmitted at 22:54 *This report constitutes a preliminary interpretation only. Non-acute findings felt to be unrelated to the clinical presentation may not be discussed in this report. The study will be interpreted and a final report will be generated by the local Radiologist the following shift. To reach the [facility] radiology department call [phone]. If a discrepancy is found between the preliminary and final interpretations of this study, please notify us via our Client Portal at [email or web address], under QA Exams. You can also fax this report with a description of the discrepancy, or include the final report, to our daytime fax number [phone]. If faxing, please indicate the severity of discrepancy using one of the following categories: [ ] 1 - Agree/Informational [ ] 2 - Unlikely to Affect Management [ ] 3 - Possible Eventual Change of Management [ ] 4 - Probable Immediate Change of Management For all other patient related information, please fax us at [phone]. [id number] Code Status & VTE Plan VTE Prophylaxis Plan VTE Prophylaxis will be ordered: Yes Resident Activity Tracking Resident Involvement: Resident Care Provided Care Provided: Adult Hospital Medicine
[2021-11-23] MEDS ORDERED: ACETAMINOPHEN 325 MG TAB PO PRN (02:08)
[2021-11-23] MEDS ORDERED: POLYETHYLENE (MIRALAX) 17 GM PACK PO PRN (02:08)
[2021-11-23] MEDS ORDERED: MoRPHine SULFATE 4 MG/ML 1 ML CARP\\VIAL IV PRN (02:08)
[2021-11-23] MEDS ORDERED: ALUMINUM/MAGNESIUM SUSP 30 ML UDC PO PRN (02:08)
[2021-11-23] MEDS: LACTATED RINGER'S 1,000 ML IV SCH ×2 (02:30→08:17)
[2021-11-23] MEDS ORDERED: PIPERACILLIN/TAZOBACTAM 4.5 GM in DEXTROSE 5% 100 ML IV SCH (06:00)
--- NOTE | 2021-11-23 07:48 | Urology Consultation ---
Date of Consultation November 23, 2021 Assessment & Plan (1) Gluteal abscess: Plan 51-year-old male with perineal discomfort and CT scan showing a small gluteal abscess. Saw and examined patient today. Do not palpate any appreciable abscess or anything near the scrotum. Review of CT scan shows that this may be more in the gluteal region. That being said, I discussed options with patient which would be observation versus incision and drainage. I discussed that if he had an I&D, the area would be left open and it would require dressing changes and packing twice daily which can be fairly uncomfortable. Given its rather small size, lack of fevers or leukocytosis, and inability to palpate on exam, would recommend continued broad-spectrum antibiotics for at least another 24 hours. Would recommend gram-positive coverage as these sometimes can be multi microbial. This will additionally allow Eliquis to get further out of his system. The abscess is small enough that it may be able to be treated conservatively as I fear that it will be difficult to find and he will not heal well given his diagnosis of prediabetes and his body habitus. Can reevaluate patient tomorrow morning and if not improving on exam, can discuss incision and drainage. At that time may need to involve general surgery based on location. History of Present Illness Reason for Consultation: Perineal/gluteal abscess Attending Physician: Farzad Jackson MD History of Present Illness 51-year-old male who presented the hospital last night with several days of peritoneal discomfort. He denies any fevers. He denies any previous infections. He has been afebrile with stable vitals. Labs showed white blood cell count of 10.9 last night and 9.7 this morning. Creatinine stable at roughly 1. Urinalysis was negative. CT scan of the abdomen and pelvis was performed which I independently reviewed. This shows a 2.5 x 3.7 x 3 cm area of enhancing fluid collection in the superficial soft tissue of the inferior gluteal cleft. He was admitted to the hospital and started on Zosyn. He reports a diagnosis of prediabetes. He has a history of a DVT and is on Eliquis. Allergies Allergy/AdvReac Type Severity Reaction Status Date / Time amoxicillin AdvReac Intermediate GI SYMPTOMS Verified 11/22/21 22:46 clavulanic acid AdvReac Intermediate GI SYMPTOMS Verified 11/22/21 22:46 prednisone AdvReac Intermediate hyperactivi Verified 11/22/21 22:46 ty Home Medications Medication Instructions Recorded Confirmed Type cetirizine 10 mg tablet (Zyrtec) 10 mg PO QAM 02/02/19 11/22/21 History topiramate 50 mg tablet (Topamax) 50 mg PO HS #90 tabs 11/07/20 11/22/21 Rx rizatriptan 5 mg tablet 5 mg PO UD PRN Headache 06/11/21 11/22/21 History metoprolol succinate 25 mg 25 mg PO QPM 06/19/21 11/22/21 History tablet,extended release 24 hr OneTouch Delica Plus Lancet 33 #100 ea 07/10/21 10/30/21 Rx gauge (lancets) OneTouch Verio Flex meter #1 ea 07/10/21 10/30/21 Rx (blood-glucose meter) OneTouch Verio test strips (blood #100 ea 07/10/21 10/30/21 Rx sugar diagnostic) citalopram 20 mg tablet 20 mg PO DAILY 08/11/21 11/22/21 History apixaban 5 mg tablet (Eliquis) 5 mg PO BID #60 tabs 08/28/21 11/22/21 Rx pravastatin 10 mg tablet 10 mg PO QAM #90 tabs 10/03/21 11/22/21 Rx azelastine 205.5 mcg (0.15 %) 2 spray intranasal DAILY 11/22/21 11/22/21 History nasal spray Patient History Medical History (Updated 11/23/21 @ 13:28 by Henry Luna DO) Anxiety Aortic insufficiency follows DR. FLOOD>ECHO YEARLY "STABLE" Chronic obstructive pulmonary disease BEGINNING STAGES>NO INHALER Clostridioides difficile infection Deviated nasal septum Dyslipidemia Gastritis WITH ULCERS DX FEB 2021 - F/U REASON FOR UPCOMING PROCEDURE GERD without esophagitis Hearing loss History of anesthesia reaction 2008> [facility] > AFTER EXTUBATION, WAS UNABLE TO BREATHE> PT UNSURE OF OTHER D ETAILS. REPORTS WAS HEAVY SMOKER AT THE TIME. WAS GIVEN SHOT TO TAKE EXTRA FLUID OUT OF BODY History of colon polyps History of COVID-19 12/2019>HOSPITALIZED IN [place] (PNX BILAT. LUNG CURRIE>DID NOT REQUIRE INTUBATION) History of gross hematuria Hx of blood clots 4YRS AGO > RIGHT LEG> WAS ON BLOOD THINNER, NOW JUST ASA, NO KNOWN CAUSE, JUST SUPERFICIAL PER PT Hypertension Migraine Obstructive sleep apnea NO CPAP Osteoarthritis Perianal abscess Prediabetes RECENT A1C ELEVATED, F/U IN JULY OR AUGUST 2021 Superficial thrombosis of right lower extremity Thoracic aortic aneurysm, without rupture Thyroid nodule NO FOLLOW UP NEEDED Umbilical hernia without obstruction and without gangrene Surgical History H/O inguinal hernia repair History of ankle surgery LEFT History of appendectomy History of arthroscopy LEFT KNEE History of carpal tunnel release RIGHT History of colonoscopy History of esophagogastroduodenoscopy (EGD) History of tooth extraction Hx of lipoma REMOVED FROM BEHIND BILAT EARS AGE 3 [place] teeth removed Family History Father Prostate cancer Diabetes Grandmother (Paternal) Diabetes Other Allergic rhinitis Asthma No family history of adverse response to anesthesia Thoracic aortic aneurysm Denies family history of Ovarian cancer Myocardial infarction Breast cancer Lung cancer Colorectal cancer Social History Smoking Status: Current every day smoker Tobacco Type: Cigarettes Age Started Using Tobacco: 14; packs per day: 0.5; Cigarettes Per Day: 1/2 pack a day.; Second Hand Exposure: No; Do You Dip or Chew Tobacco: No; Tobacco Cessation Education Requested by Patient: No Hx Alcohol Use: Yes Alcohol type: beer Alcohol Intake Frequency Comment: 1-2 x/month Hx Substance Use: No Preferred Language: Uzbek Communication Ability: Effective Visual Impairment: Limited Hearing Ability: Normal Final Coat Sprayer Required: No Beliefs That Will Affect Care: None marital status: Current Living Situation: Spouse current occupational status: employed current occupation: works in a [employer] How many Children do You have: 1 Other Information That Helps Us Care for You: No Feels Safe at Home: Yes Safety Concerns: Feels Safe At This Time Childhood Exposure to Second-Hand Smoke: Yes caffeine: Yes (coffee ) Dental Care, Regularly: Yes Physical Activity Frequency: Does not Exercise Seatbelt Use: always Sunscreen Use: Yes Assistive Devices: None Review of Systems Review of Systems: 14 point review of systems negative outside of what is listed above in HPI Physical Exam Physical Exam: General: Alert and oriented, no acute distress HEENT: Normocephalic, mucous membranes moist Pulmonary: Nonlabored respirations Abdomen: Nondistended : Circumcised phallus with orthotopic meatus. Testicles is a bilaterally. Tenderness to palpation over perineum with a small amount of induration but no crepitus or fluctuation.. Extremities: Moves all 4 spontaneously Neuro: No gross deficits Skin: Warm, dry, no rashes noted Results & Data ([facility]) Vital Signs (Past 12 Hours) Vital Signs Temp Pulse Pulse Pulse Resp BP BP 11/23/21 02:00 11/23/21 02:00 11/23/21 02:00 36.4 C L 84 16 140/82 11/23/21 01:52 78 20 146/82 H 11/22/21 23:59 85 20 11/22/21 22:29 89 18 11/22/21 21:23 11/22/21 20:16 36.3 C L 88 20 157/91 H BP Pulse Ox O2 Del Method 11/23/21 02:00 Room Air 11/23/21 02:00 Room Air 11/23/21 02:00 93 Room Air 11/23/21 01:52 98 Room Air 11/22/21 23:59 122/61 94 Room Air 11/22/21 22:29 129/63 96 Room Air 11/22/21 21:23 96 Room Air 11/22/21 20:16 93 Room Air PG Care Time/CCT Total # of Minutes Spent Total Time Spent with Patient: Total time spent is greater than 50% in coordination of care (as documented) at patient's floor/unit and/or counseling patient: Coding Level of Care Code 62754 Inpt Consult Level 5 Diagnoses Gluteal abscess L02.31
[2021-11-23] MEDS: MoRPHine SULFATE 2 MG/ML CARP IV PRN ×2 (08:10→15:26)
--- NOTE | 2021-11-23 08:11 | CT Scan Report ---
ABDOMEN AND PELVIS CT WITH IV CONTRAST CT DOSE: 1875.18 mGy.cm HISTORY: Acute pain of the pelvis and scrotum with possible abscess eval for deep abscess b/t scrotu m and anus TECHNIQUE: Multiaxial CT images of the abdomen and pelvis were performed following the IV administrat ion of 93 cc of Optiray, A dose lowering technique was utilized adhering to the principles of ALARA. COMPARISON STUDY: None. FINDINGS: Subsegmental bibasilar atelectasis. Nodular hyperdense consolidative foci within the warp drawer ior basal segment left lower lobe measure up to approximately 9 mm which may represent calcific granu lomata or aspirated barium. No pneumatosis or pneumoperitoneum. Mild cardiomegaly. Unremarkable spleen, pancreas, gallbladder and adrenal glands. There are a few cysts within the liver measuring up to 9 cm. Mild right hemidiaphragmatic elevation. There is patency of the hepatic and po rtal veins. Unremarkable left kidney. There is a heterogeneously enhancing exophytic mass within the inferior pole right kidney measuring 2.7 x 2.7 x 2.7 cm. No hydronephrosis. The bilateral renal veins appear patent. Partial distention of the urinary bladder with mild wall thickening. Possible small f at filled right inguinal hernia with a portion of the urinary bladder extending towards the hernia os tium. Unremarkable prostate. Atherosclerosis of the aorta. Retroaortic left renal vein. No lymphadeno marianne. Duodenal diverticulum. No bowel obstruction or bowel wall thickening. Colonic diverticulosis. Mild fe rafaela retention. Appendectomy. Diastases recti with fat filled umbilical hernia, diastases of 2.3 cm. T here is a peripherally enhancing fluid collection within the midline inferior gluteal cleft extending into the perineum measuring 4.4 x 2.3 x 3.5 cm. Inflammatory stranding extends into the posterior sc rotum. No perianal fistula or supralevator extension identified. No acute fracture. Sclerotic focus w ithin the L5 vertebral body is indeterminate, possibly a bone island. IMPRESSION: 1. 4.4 cm abscess of the inferior gluteal cleft extending into the perineum. Inflammatory stranding e xtends into the posterior scrotum. No perianal fistula or supralevator extension. 2. 2.7 cm heterogeneously enhancing mass of the inferior pole right kidney. Renal cell carcinoma is t he diagnosis of exclusion. This finding was called/faxed to the floor at time of dictation. 3. No adenopathy or evidence of metastatic disease. 4. No bowel obstruction or bowel wall thickening. 5. Colonic diverticulosis. 6. Additional findings as above. ACT 112: Positive. There are findings on this exam that require communication between the performing entity and the patient following Patient Test Result Information Act ([place] Act 112) guidelines. The above report was generated using voice recognition software. It may contain grammatical, syntax o r spelling errors. Electronically signed by: Twin Coles M.D. 11/23/2021 8:10 AM
[2021-11-23] MEDS ORDERED: APIXABAN 5 MG TABLET PO SCH (09:00)
--- NOTE | 2021-11-23 09:40 | Hospitalist Progress Note ---
Date of Service November 23, 2021 Assessment & Plan (1) Perianal abscess: Plan: Mr. Brown is a 51 yo male with PMHx of DVT currently on anticoagulation, migraine, HLD, aortic insufficiency, thoracic aortic aneurysm, GERD, anxiety, and prediabetes admitted to [facility] on 11/23/21 due to perianal abscess. Acute perianal abscess - CTAP- peripheral enhancing fluid collection measures 2.5 x 3.7 x 3 cm involving the superficial soft tissues of the inferior gluteal cleft - Currently afebrile and without leukocytosis, hemodynamically stable - Urology consulted -Recommending conservative management for next 24 hours, re-evaluate need for surgery in AM -May consult general surgery tomorrow if no improvement with antibiotics - MRSA nares negative. Pt stable, afebrile, no leukocytosis- will defer starting MRSA coverage for now - Zosyn de-escalated to Unasyn today - Pain control- Tylenol PRN, morphine PRN - Trend CBC Renal mass -CTAP- 2.7 cm heterogenously enhancing mass of R inferior pole of kidney, concerning for renal cell carcinoma as diagnosis of exclusion -Outpatient f/u with urology for biopsy Recent DVT of RLE - Patient with recent distal DVT with large clot burden of great saphenous vein, for which he is on Eliquis for anticoagulation - Patient notes that he is only intending to be on AC for 1 more week (for total of 3 months AC) - Continue holding Eliquis for potential surgical treatment of abscess - No current LE pain, swelling, or rash Hyperlipidemia - Continue home pravastatin - Consider switch to high intensity statin as outpatient Thoracic aortic aneurysm w/o rupture - Patient followed by cardiology - Notes reviewed; last OVN 08/11/21 - Patient to avoid Valsalva maneuver while lifting and no heavy lifting - Continue home metoprolol DM2 - States diet controlled; no medical therapy- A1C of 6.6% in 05/2021 - BSGs ACHS GERD - Patient previously on Nexium (states stopped about 2 months ago) - Reports recent increase in symptoms of GERD - F/u with PCP and outpatient GI as established Anxiety - Continue home Celexa Migraines - Continue home Topamax FENGI: Carb consistent diet, will make NPO at midnight for potential surgery DVT PPx: SCDs, continue holding home Eliquis pending potential need for surgery Dispo: Medical/surgical Code status: Full (2) Dyslipidemia: (3) Thoracic aortic aneurysm, without rupture: (4) Prediabetes: (5) GERD without esophagitis: (6) Anxiety: (7) DVT (deep venous thrombosis): Admission and Anticipated Discharge Date Admission Date: November 23, 2021 Supervising Physician Co-Signing Physician Notes I personally examined the patient and verified all malik points of history and exam, discussed case, and agree with decision making with Dr Mendoza feeling better overall /pain better controlled vitals noted nad heent nc at mmm breathing unlabored no accessory muscles good effort no focal neuro deficits perineal abscess - IV abx, serial exams, may need drainage but prefers conservative care for now - follow on zosyn. no clear need for MRSA coverage at this time although if fails to improve or worsens, may need to escalate renal mass - ongoing urology follow up as outpt for probable biopsy/etc Subjective No acute events overnight. Pt reports pain around abscess though morphine is providing some relief. Also reports feeling feverish. He would prefer not to have incision and drainage if possible. Review of Systems Review of Systems: Per subjective Physical Exam Physical Exam: GENERAL: No acute distress. Well developed and well nourished HENT: Moist mucous membranes. RESPIRATORY: Clear to auscultation bilaterally. No wheezing, rales, or rhonchi. CARDIOVASCULAR: Regular rate and rhythm. No murmurs. No JVD. ABDOMEN: Soft and non-tender. Normal bowel sounds. GENITOURINARY: Significant perineal tenderness to palpation. The perineum is inflamed but no central lesion. No discharge or drainage. No erythema. EXTREMITIES: No edema. Non-tender. SKIN: Warm, dry. Results & Data Results & Data ([facility]) Vital Signs (Past 12 Hours) Vital Signs Temp Pulse Pulse Pulse Resp BP BP 11/23/21 07:53 36.9 C 96 H 16 146/64 H 11/23/21 02:00 11/23/21 02:00 11/23/21 02:00 36.4 C L 84 16 140/82 11/23/21 01:52 78 20 146/82 H 11/22/21 23:59 85 20 11/22/21 22:29 89 18 BP Pulse Ox O2 Del Method 11/23/21 07:53 90 Room Air 11/23/21 02:00 Room Air 11/23/21 02:00 Room Air 11/23/21 02:00 93 Room Air 11/23/21 01:52 98 Room Air 11/22/21 23:59 122/61 94 Room Air 11/22/21 22:29 129/63 96 Room Air Resident Activity Tracking Resident Involvement: Resident Care Provided Care Provided: Adult Hospital Medicine
[2021-11-23] MEDS ORDERED: Nursing to Pharmacy Communication SCH (12:15)
[2021-11-23] MEDS: AMPICILLIN/SULBACTAM SOD 3,000 MG in 0.9 % SODIUM CHLORIDE 100 ML IV SCH ×2 (14:05→20:13)
[2021-11-23] MEDS: ACETAMINOPHEN 500 MG TAB PO SCH (17:48)
--- NOTE | 2021-11-23 19:00 | Billing Data ---
Date of Service November 23, 2021 Coding Level of Care Code 34170 Subseq Obs Care Lvl 3
[2021-11-23] MEDS: TOPIRAMATE 50 MG TAB PO SCH (20:17)
[2021-11-23] MEDS: METOPROLOL SUCC 25MG EXT REL TAB PO SCH (20:17)
[2021-11-24] MEDS: AMPICILLIN/SULBACTAM SOD 3,000 MG in 0.9 % SODIUM CHLORIDE 100 ML IV SCH ×4 (01:48→20:11)
[2021-11-24] MEDS: ACETAMINOPHEN 500 MG TAB PO SCH ×3 (01:48→17:15)
[2021-11-24 06:42] LABS: Hematocrit (blood only) 46.4 % (40.1-51.0); Hemoglobin 15.9 g/dl (14.0-18.0); Mean Corpuscular Hemoglobin 30.3 pg (25.0-34.0); Mean Corpuscular Hgb Conc 34.3 g/dL (32.0-36.0); Mean Corpuscular Volume 88.4 fL (80.0-100.0); Mean Platelet Volume 10.7 fL (9.4-12.4); Platelet Count 155 K/uL (130-400); RDW Standard Deviation 42.2 fL (36.4-46.3); Red Blood Count 5.25 M/uL (4.63-6.08); White Blood Count 6.85 K/ul (4.8-10.8)
[2021-11-24 07:05] LABS: BUN Creatinine Ratio 14.1 (10-20); Calcium 8.9 mg/dl (8.5-10.1); Creatinine Clr Calc Pharmacy 121.2 ml/min; Est GFR (African American) 100.4 ml/min; Est GFR (Non-African American) 86.6 ml/min; Potassium 4.3 mmol/L (3.5-5.1)
--- NOTE | 2021-11-24 07:16 | Urology Progress Note ---
Date of Service November 24, 2021 Assessment & Plan (1) Gluteal abscess: Plan 51-year-old male with perineal discomfort and CT scan showing a small gluteal abscess. Saw and examined patient today. Was hopeful that with antibiotics, patient's exam might improve and he could possibly avoid an incision and drainage however this is unchanged at this time. I also wanted to give him time to get the blood thinners out of his system if he were to require any procedure. Does not appear to involve the penis or scrotum and tracks backward near the rectum. CT scan shows that it is in the gluteal area. We will touch base with Gen surg today about incision and drainage. Keep NPO until discussion with Gen surg -Urology to sign off. No further f/u needed. Admission and Anticipated Discharge Date Admission Date: November 23, 2021 Subjective Afebrile with stable vitals. White blood cell count 6.5 today. Patient reports pain is unchanged. Review of Systems Review of Systems: 14 point review of systems negative outside of what is listed above in HPI Physical Exam Physical Exam: General: Alert and oriented, no acute distress HEENT: Normocephalic, mucous membranes moist Pulmonary: Nonlabored respirations Abdomen: Nondistended : Circumcised phallus orthotopic meatus. Testicles descend bilaterally and palpably normal. No tenderness on exam. Induration in perineum near rectum. Tender to palpation. Extremities: Moves all 4 spontaneously Neuro: No gross deficits Skin: Warm, dry, no rashes noted Results & Data ([facility]) Vital Signs (Past 12 Hours) Vital Signs Temp Pulse Resp BP Pulse Ox O2 Del Method 11/23/21 21:51 36.6 C 75 12 121/56 L 95 Room Air 11/23/21 19:25 Room Air PG Care Time/CCT Total # of Minutes Spent Total Time Spent with Patient: Total time spent is greater than 50% in coordination of care (as documented) at patient's floor/unit and/or counseling patient: Coding Level of Care Code 71106 Subseq Hosp Care Lvl 2 Diagnoses Gluteal abscess L02.31
[2021-11-24] MEDS: CITALOPRAM 20 MG TAB PO SCH (08:17)
[2021-11-24] MEDS: PRAVASTATIN SOD 10 MG TAB PO SCH (08:17)
--- NOTE | 2021-11-24 08:52 | Hospitalist Progress Note ---
Date of Service November 24, 2021 Assessment & Plan (1) Perianal abscess: Plan: Mr. Brown is a 51 yo male with PMHx of DVT currently on anticoagulation, migraine, HLD, aortic insufficiency, thoracic aortic aneurysm, GERD, anxiety, and prediabetes admitted to [facility] on 11/23/21 due to perianal abscess. Acute perianal abscess - CTAP- peripheral enhancing fluid collection measures 2.5 x 3.7 x 3 cm involving the superficial soft tissues of the inferior gluteal cleft - Currently afebrile and without leukocytosis, hemodynamically stable though no improvement in abscess or pain - Urology consulted -Recommended conservative management initially but lack of improvement noted today -General surgery consulted for potential need for incision/drainage today - MRSA nares negative. However, given pt did not improve, will consider MRSA coverage if decompensating - Continue Unasyn - Pain control- Tylenol PRN, morphine PRN - Trend CBC Renal mass -CTAP- 2.7 cm heterogenously enhancing mass of R inferior pole of kidney, concerning for renal cell carcinoma as diagnosis of exclusion -Outpatient f/u with urology for biopsy Recent DVT of RLE - Patient with recent distal DVT with large clot burden of great saphenous vein, for which he is on Eliquis for anticoagulation - Patient notes that he is only intending to be on AC for 1 more week (for total of 3 months AC) - Continue holding Eliquis for potential surgical treatment of abscess - No current LE pain, swelling, or rash Hyperlipidemia - Continue home pravastatin - Consider switch to high intensity statin as outpatient Thoracic aortic aneurysm w/o rupture - Patient followed by cardiology - Notes reviewed; last OVN 08/11/21 - Patient to avoid Valsalva maneuver while lifting and no heavy lifting - Continue home metoprolol DM2 - States diet controlled; no medical therapy- A1C of 6.6% in 05/2021 - BSGs acceptable GERD - Patient previously on Nexium (states stopped about 2 months ago) - Reports recent increase in symptoms of GERD - F/u with PCP and outpatient GI as established Anxiety - Continue home Celexa Migraines - Continue home Topamax FENGI: Currently NPO DVT PPx: SCDs, continue holding home Eliquis pending potential need for surgery Dispo: Medical/surgical Code status: Full (2) Dyslipidemia: (3) Thoracic aortic aneurysm, without rupture: (4) Prediabetes: (5) GERD without esophagitis: (6) Anxiety: (7) DVT (deep venous thrombosis): Admission and Anticipated Discharge Date Admission Date: November 23, 2021 Supervising Physician Co-Signing Physician Notes I personally examined the patient and verified all malik points of history and exam, discussed case, and agree with decision making with Dr Reji liu about the same, for surgical drainage vitals noted nad heent nc at mmm breathing unlabored no accessory muscles good effort no focal neuro deficits perineal abscess - IV abx, drainage. renal mass - ongoing urology follow up as outpt for probable biopsy/etc Subjective No acute events overnight. Pt reports no significant change from his condition yesterday. Still experiencing pain, states he is more accepting of need for incision/drainage now. Review of Systems Review of Systems: Per subjective Physical Exam Physical Exam: GENERAL: No acute distress. Well developed and well nourished HENT: Moist mucous membranes. RESPIRATORY: Clear to auscultation bilaterally. No wheezing, rales, or rhonchi. CARDIOVASCULAR: Regular rate and rhythm. No murmurs. No JVD. ABDOMEN: Soft and non-tender. Normal bowel sounds. GENITOURINARY: Significant perineal tenderness to palpation. The perineum is inflamed but no central lesion. No discharge or drainage. No erythema. Some increased warmth today. EXTREMITIES: No edema. Non-tender. SKIN: Warm, dry. Results & Data Results & Data ([facility]) Vital Signs (Past 12 Hours) Vital Signs Temp Pulse Resp BP Pulse Ox O2 Del Method 11/24/21 07:57 36.7 C 72 16 109/72 91 Room Air 11/23/21 21:51 36.6 C 75 12 121/56 L 95 Room Air Resident Activity Tracking Resident Involvement: Resident Care Provided Care Provided: Adult Hospital Medicine
--- NOTE | 2021-11-24 10:56 | Surgery Consultation ---
Date of Consultation November 24, 2021 Assessment & Plan (1) Gluteal abscess: 51-year-old male with gluteal/perineal abscess Plan for incision and drainage of gluteal abscess in the operating room Risk the procedure were discussed to include but not limited to bleeding, infection, recurrence, damage surrounding structures, need for future more extensive surgery, and the risk of anesthesia (2) Abscess of perineum: History of Present Illness Attending Physician: Juan David Canela DO History of Present Illness 51-year-old male admitted with perineal cellulitis extending into the scrotum near the anus. He was treated with antibiotics for the past 24 to 36 hours and has had some improvement. 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 Urology was following, however deferred to general surgery for treatment. He has never had this before. Started Tuesday. He is currently wrapping up a 3- month course of Eliquis for the greater saphenous vein clot. He does not have d iabetes. Allergies Allergy/AdvReac Type Severity Reaction Status Date / Time amoxicillin AdvReac Intermediate GI SYMPTOMS Verified 11/22/21 22:46 clavulanic acid AdvReac Intermediate GI SYMPTOMS Verified 11/22/21 22:46 prednisone AdvReac Intermediate hyperactivi Verified 11/22/21 22:46 ty Home Medications Medication Instructions Recorded Confirmed Type cetirizine 10 mg tablet (Zyrtec) 10 mg PO QAM 02/02/19 11/22/21 History topiramate 50 mg tablet (Topamax) 50 mg PO HS #90 tabs 11/07/20 11/22/21 Rx rizatriptan 5 mg tablet 5 mg PO UD PRN Headache 06/11/21 11/22/21 History metoprolol succinate 25 mg 25 mg PO QPM 06/19/21 11/22/21 History tablet,extended release 24 hr OneTouch Delica Plus Lancet 33 #100 ea 07/10/21 10/30/21 Rx gauge (lancets) OneTouch Verio Flex meter #1 ea 07/10/21 10/30/21 Rx (blood-glucose meter) OneTouch Verio test strips (blood #100 ea 07/10/21 10/30/21 Rx sugar diagnostic) citalopram 20 mg tablet 20 mg PO DAILY 08/11/21 11/22/21 History apixaban 5 mg tablet (Eliquis) 5 mg PO BID #60 tabs 08/28/21 11/22/21 Rx pravastatin 10 mg tablet 10 mg PO QAM #90 tabs 10/03/21 11/22/21 Rx azelastine 205.5 mcg (0.15 %) 2 spray intranasal DAILY 11/22/21 11/22/21 History nasal spray Patient History Medical History (Updated 11/23/21 @ 13:28 by Henry Luna DO) Anxiety Aortic insufficiency follows DR. FLOOD>ECHO YEARLY "STABLE" Chronic obstructive pulmonary disease BEGINNING STAGES>NO INHALER Clostridioides difficile infection Deviated nasal septum Dyslipidemia Gastritis WITH ULCERS DX FEB 2021 - F/U REASON FOR UPCOMING PROCEDURE GERD without esophagitis Hearing loss History of anesthesia reaction 2008> [facility] > AFTER EXTUBATION, WAS UNABLE TO BREATHE> PT UNSURE OF OTHER DETAILS. REPORTS WAS HEAVY SMOKER AT THE TIME. WAS GIVEN SHOT TO TAKE EXTRA FLUID OUT OF BODY History of colon polyps History of COVID-19 12/2019>HOSPITALIZED IN [place] (PNX BILAT. LUNG CURRIE>DID NOT REQUIRE INTUBATION) History of gross hematuria Hx of blood clots 4YRS AGO > RIGHT LEG> WAS ON BLOOD THINNER, NOW JUST ASA, NO KNOWN CAUSE, JUST SUPERFICIAL PER PT Hypertension Migraine Obstructive sleep apnea NO CPAP Osteoarthritis Perianal abscess Prediabetes RECENT A1C ELEVATED, F/U IN JULY OR AUGUST 2021 Superficial thrombosis of right lower extremity Thoracic aortic aneurysm, without rupture Thyroid nodule NO FOLLOW UP NEEDED Umbilical hernia without obstruction and without gangrene Surgical History H/O inguinal hernia repair History of ankle surgery LEFT History of appendectomy History of arthroscopy LEFT KNEE History of carpal tunnel release RIGHT History of colonoscopy History of esophagogastroduodenoscopy (EGD) History of tooth extraction Hx of lipoma REMOVED FROM BEHIND BILAT EARS AGE 3 [place] teeth removed Family History Father Prostate cancer Diabetes Grandmother (Paternal) Diabetes Other Allergic rhinitis Asthma No family history of adverse response to anesthesia Thoracic aortic aneurysm Denies family history of Ovarian cancer Myocardial infarction Breast cancer Lung cancer Colorectal cancer Social History Smoking Status: Current every day smoker Tobacco Type: Cigarettes Age Started Using Tobacco: 14; packs per day: 0.5; Cigarettes Per Day: 1/2 pack a day.; Second Hand Exposure: No; Do You Dip or Chew Tobacco: No; Tobacco Cessation Education Requested by Patient: No Hx Alcohol Use: Yes Alcohol type: beer Alcohol Intake Frequency Comment: 1-2 x/month Hx Substance Use: No Preferred Language: Burkinan Communication Ability: Effective Visual Impairment: Limited Hearing Ability: Normal Telemetry Rn Required: No Beliefs That Will Affect Care: None marital status: Current Living Situation: Spouse current occupational status: employed current occupation: works in a [employer] How many Children do You have: 1 Other Information That Helps Us Care for You: No Feels Safe at Home: Yes Safety Concerns: Feels Safe At This Time Childhood Exposure to Second-Hand Smoke: Yes caffeine: Yes (coffee ) Dental Care, Regularly: Yes Physical Activity Frequency: Does not Exercise Seatbelt Use: always Sunscreen Use: Yes Assistive Devices: None Review of Systems Review of Systems: All systems reviewed & are unremarkable except as noted in HPI & below Physical Exam Constitutional: WD/WN, vitals as above + obese Respiratory: normal respiratory effort, lungs clear to auscultation Cardiovascular: RRR, no murmur, no edema Gastrointestinal (Abdomen): normal bowel sounds, soft, nontender, no hepatosplenomegaly Gluteal/perineal abscess with some cellulitis Results & Data ([facility]) Vital Signs (Past 12 Hours) Vital Signs Temp Pulse Resp BP Pulse Ox O2 Del Method 11/24/21 07:25 Room Air 11/24/21 07:57 36.7 C 72 16 109/72 91 Room Air Laboratory Results Laboratory Results - last 24 hr 11/23/21 11/23/21 11/23/21 11:42 16:52 20:21 WBC RBC Hgb Hct MCV MCH MCHC RDW Std Deviation RDW Coeff of Kade Plt Count MPV Sodium Potassium Chloride Carbon Dioxide Anion Gap BUN Creatinine Est Cr Clr Drug Dosing Est GFR ( Amer) Est GFR (Non-Af Amer) BUN/Creatinine Ratio Glucose POC Glucose 120 H 99 93 Calcium 11/24/21 11/24/21 06:29 06:29 WBC 6.85 RBC 5.25 Hgb 15.9 Hct 46.4 MCV 88.4 MCH 30.3 MCHC 34.3 RDW Std Deviation 42.2 RDW Coeff of Kade 13.0 Plt Count 155 MPV 10.7 Sodium 139 Potassium 4.3 Chloride 107 Carbon Dioxide 29 Anion Gap 3 BUN 14 Creatinine 0.99 Est Cr Clr Drug Dosing 121.2 Est GFR ( Amer) 100.4 Est GFR (Non-Af Amer) 86.6 BUN/Creatinine Ratio 14.1 Glucose 97 POC Glucose Calcium 8.9 Diagnostic Findings ABDOMEN AND PELVIS CT WITH IV CONTRAST CT DOSE: 1875.18 mGy.cm HISTORY: Acute pain of the pelvis and scrotum with possible abscess eval for deep abscess b/t scrotum and anus TECHNIQUE: Multiaxial CT images of the abdomen and pelvis were performed following the IV administration of 93 cc of Optiray, A dose lowering technique was utilized adhering to the principles of ALARA. COMPARISON STUDY: None. FINDINGS: Subsegmental bibasilar atelectasis. Nodular hyperdense consolidative foci within the posterior basal segment left lower lobe measure up to approximately 9 mm which may represent calcific granulomata or aspirated barium. No pneumatosis or pneumoperitoneum. Mild cardiomegaly. Unremarkable spleen, pancreas, gallbladder and adrenal glands. There are a few cysts within the liver measuring up to 9 cm. Mild right hemidiaphragmatic elevation. There is patency of the hepatic and portal veins. Unremarkable left kidney. There is a heterogeneously enhancing exophytic mass within the inferior pole right kidney measuring 2.7 x 2.7 x 2.7 cm. No hydronephrosis. The bilateral renal veins appear patent. Partial distention of the urinary bladder with mild wall thickening. Possible small fat filled right inguinal hernia with a portion of the urinary bladder extending towards the hernia ostium. Unremarkable prostate. Atherosclerosis of the aorta. Retroaortic left renal vein. No lymphadenopathy. Duodenal diverticulum. No bowel obstruction or bowel wall thickening. Colonic diverticulosis. Mild fecal retention. Appendectomy. Diastases recti with fat filled umbilical hernia, diastases of 2.3 cm. There is a peripherally enhancing fluid collection within the midline inferior gluteal cleft extending into the perineum measuring 4.4 x 2.3 x 3.5 cm. Inflammatory stranding extends into the posterior scrotum. No perianal fistula or supralevator extension identified. No acute fracture. Sclerotic focus within the L5 vertebral body is indeterminate, possibly a bone island. IMPRESSION: 1. 4.4 cm abscess of the inferior gluteal cleft extending into the perineum. Inflammatory stranding extends into the posterior scrotum. No perianal fistula or supralevator extension. 2. 2.7 cm heterogeneously enhancing mass of the inferior pole right kidney. Renal cell carcinoma is the diagnosis of exclusion. This finding was called/faxed to the floor at time of dictation. 3. No adenopathy or evidence of metastatic disease. 4. No bowel obstruction or bowel wall thickening. 5. Colonic diverticulosis. 6. Additional findings as above. PG Care Time/CCT Total # of Minutes Spent Total Time Spent with Patient: Total time spent is greater than 50% in coordination of care (as documented) at patient's floor/unit and/or counseling patient: Coding Level of Care Code 83690 Inpt Consult Level 2 Diagnoses Gluteal abscess L02.31 Abscess of perineum L02.215
[2021-11-24] MEDS ORDERED: fentaNYL citrate 100 MCG/2 ML VIAL ONE (11:05)
[2021-11-24] MEDS ORDERED: BUPIVACAINE 0.5 % 5 MG/1 ML MPF 30ML VIAL ONE (11:39)
--- NOTE | 2021-11-24 11:53 | Billing Data ---
Date of Service November 24, 2021 Coding Level of Care Code 42808 Subseq Obs Care Lvl 3
[2021-11-24] MEDS ORDERED: ONDANSETRON INJ 2 MG/ML 2 ML VIAL IV PRN (11:54)
[2021-11-24] MEDS ORDERED: HYDROmorphone INJ 2 MG/ML SYR/VIAL IV PRN (11:54)
[2021-11-24] MEDS ORDERED: ATROPINE SULFATE 0.1 MG/ML 10ML SYR IV PRN (11:54)
[2021-11-24] MEDS ORDERED: ePHEDrine sulfate 50 MG/ML AMP IV PRN (11:54)
--- NOTE | 2021-11-24 11:54 | Anesthesiology Consultation ---
Date of Service November 24, 2021 Assessment & Plan ASA ASA3 Proposed Anesthesia Anesthesia Type: General Risk / Benefits Reviewed With: PT / POA / Parent / Guardian, Accepts Plan and Informed Consent Obtained History Surgery Operation Date: 11/24/21 08:55 Proposed Procedures p Incision and Drainage Gluteal Abscess - Nadir Clark DO, FACS Height/Weight Height: 6 ft Weight: 131.9 kg Allergies Allergy/AdvReac Type Severity Reaction Status Date / Time amoxicillin AdvReac Intermediate GI SYMPTOMS Verified 11/22/21 22:46 clavulanic acid AdvReac Intermediate GI SYMPTOMS Verified 11/22/21 22:46 prednisone AdvReac Intermediate hyperactivi Verified 11/22/21 22:46 ty Medications Home Medications Medication Instructions Recorded Confirmed Last Taken cetirizine 10 mg tablet (Zyrtec) 10 mg PO QAM 02/02/19 11/22/21 11/21/21 topiramate 50 mg tablet (Topamax) 50 mg PO HS #90 tabs 11/07/20 11/22/2110/05 rizatriptan 5 mg tablet 5 mg PO UD PRN Headache 06/11/21 11/22/21 Unknown metoprolol succinate 25 mg 25 mg PO QPM 06/19/21 11/22/21 11/21/21 tablet,extended release 24 hr OneTouch Delica Plus Lancet 33 #100 ea 07/10/21 10/30/21 Unknown gauge (lancets) OneTouch Verio Flex meter #1 ea 07/10/21 10/30/21 Unknown (blood-glucose meter) OneTouch Verio test strips (blood #100 ea 07/10/21 10/30/21 Unknown sugar diagnostic) citalopram 20 mg tablet 20 mg PO DAILY 08/11/21 11/22/21 11/21/21 apixaban 5 mg tablet (Eliquis) 5 mg PO BID #60 tabs 08/28/21 11/22/21 11/21/21 pravastatin 10 mg tablet 10 mg PO QAM #90 tabs 10/03/21 11/22/21 11/21/21 azelastine 205.5 mcg (0.15 %) 2 spray intranasal DAILY 11/22/21 11/22/21 11/21/21 nasal spray Active Medications Generic Name Dose Route Start Last Admin Trade Name Freq PRN Reason Stop Dose Admin Acetaminophen 1,000 mg 11/23/21 17:15 11/24/21 08:17 Acetaminophen 500 Mg Tab PO 12/23/21 17:14 1,000 mg Q8H KALA Administration Citalopram Hydrobromide 20 mg 11/23/21 09:00 11/24/21 08:17 Citalopram 20 Mg Tab PO 12/23/21 08:59 20 mg DAILY KALA Administration Ampicillin Sodium/Sulbactam 108 mls @ 200 mls/hr 11/23/21 14:00 11/24/21 09:02 Sodium 3,000 mg/ Sodium IV 11/30/21 13:59 Infused Chloride Q6H KALA Infusion Protocol Metoprolol Succinate 25 mg 11/23/21 21:00 11/23/21 20:17 Metoprolol Succ 25mg Ext Rel Tab PO 12/23/21 20:59 25 mg QPM KALA Administration Morphine Sulfate 2 mg 11/23/21 02:08 11/23/21 15:26 Morphine Sulfate 2 Mg/Ml Carp IV 12/07/21 02:07 2 mg Q3H PRN Administration Pain (1,2,3,4,5) & Pre PT Pravastatin Sodium 10 mg 11/23/21 09:00 11/24/21 08:17 Pravastatin Sod 10 Mg Tab PO 12/23/21 08:59 10 mg QAM KALA Administration Topiramate 50 mg 11/23/21 21:00 11/23/21 20:17 Topiramate 50 Mg Tab PO 12/23/21 20:59 50 mg HS KALA Administration NPO Date Last Intake of Fluids: 11/23/21 Time Last Intake of Fluids: 18:30 Date Last Intake of Solids: 11/23/21 Time Last Intake of Solids: 18:30 Past Medical History Medical History (Updated 11/23/21 @ 13:28 by Henry Luna DO) Anxiety Aortic insufficiency follows DR. FLOOD>ECHO YEARLY "STABLE" Chronic obstructive pulmonary disease BEGINNING STAGES>NO INHALER Clostridioides difficile infection Deviated nasal septum Dyslipidemia Gastritis WITH ULCERS DX FEB 2021 - F/U REASON FOR UPCOMING PROCEDURE GERD without esophagitis Hearing loss History of anesthesia reaction 2008> [facility] > AFTER EXTUBATION, WAS UNABLE TO BREATHE> PT UNSURE OF OTHER DETAILS. REPORTS WAS HEAVY SMOKER AT THE TIME. WAS GIVEN SHOT TO TAKE EXTRA FLUID OUT OF BODY History of colon polyps History of COVID-19 12/2019>HOSPITALIZED IN [place] (PNX BILAT. LUNG CURRIE>DID NOT REQUIRE INTUBATION) History of gross hematuria Hx of blood clots 4YRS AGO > RIGHT LEG> WAS ON BLOOD THINNER, NOW JUST ASA, NO KNOWN CAUSE, JUST SUPERFICIAL PER PT Hypertension Migraine Obstructive sleep apnea NO CPAP Osteoarthritis Perianal abscess Prediabetes RECENT A1C ELEVATED, F/U IN JULY OR AUGUST 2021 Superficial thrombosis of right lower extremity Thoracic aortic aneurysm, without rupture Thyroid nodule NO FOLLOW UP NEEDED Umbilical hernia without obstruction and without gangrene Exercise / Class Metabolic Activity II 4-5 Yardwork/Stairs/Walk up hill Past Family History Family History Father Prostate cancer Diabetes Grandmother (Paternal) Diabetes Other Allergic rhinitis Asthma No family history of adverse response to anesthesia Thoracic aortic aneurysm Denies family history of Ovarian cancer Myocardial infarction Breast cancer Lung cancer Colorectal cancer Past Surgical History Surgical History H/O inguinal hernia repair History of ankle surgery LEFT History of appendectomy History of arthroscopy LEFT KNEE History of carpal tunnel release RIGHT History of colonoscopy History of esophagogastroduodenoscopy (EGD) History of tooth extraction Hx of lipoma REMOVED FROM BEHIND BILAT EARS AGE 3 Margaret teeth removed Past Anesthesia History No Hx of Anesthesia Complications and No Family Hx of Anesthesia Complications History of PONV No Hx of PONV and No Hx of Motion Sickness Social History Smoking Status: Current every day smoker tobacco type: cigarettes Smoking cigarettes per day: 1/2 pack a day. Do You Dip or Chew Tobacco: No Hx Alcohol Use: Yes Alcohol type: beer alcohol intake frequency: a few times a month Hx Substance Use: No substance use type: does not use Review of Systems denies fever/cough/ colds/ chest pain/ SOB/ NELIDA denies NELIDA Physical Exam Vital Signs Last Vital Signs Temp 36.6 C 11/24/21 11:25 Pulse 75 11/24/21 11:25 Resp 20 11/24/21 11:25 BP 110/74 11/24/21 11:25 Pulse Ox 93 11/24/21 11:25 O2 Del Method 11/24/21 11:25 ENMT Mouth: + poor dentition; no TMJ abnormality and no dentition abnormality Thyromental Distance: > or= 3.5 Finger Breadths Mallampati Class: II Neck + facial hair; neck extension not limited Respiratory normal respiratory effort; no respiratory distress Auscultation: lungs clear to auscultation bilaterally Cardiovascular Rate/Rhythm: regular rate and regular rhythm Neurologic moves all extremities Psychiatric Orientation: alert and oriented x 3 Testing Laboratory Results 11/24/21 06:29 11/24/21 06:29 Urine Color Yellow 11/22/21 21:21 Urine Appearance Clear (Clear) 11/22/21 21:21 Urine pH 7.0 (4.5-7.5) 11/22/21 21:21 Ur Specific [place] 1.020 (1.000-1.030) 11/22/21 21:21 Urine Protein Negative (Negative) 11/22/21 21:21 Urine Glucose (UA) Negative (Negative) 11/22/21 21:21 Urine Ketones Negative (Negative) 11/22/21 21:21 Urine Nitrite Negative (Negative) 11/22/21 21:21 Ur Leukocyte Esterase Negative (Negative) 11/22/21 21:21 11/22/21 21:17 Aerobic Blood Culture - Preliminary Blood No growth in Aerobic bottle after 24 hours. Anaerobic Blood Culture - Preliminary No growth in Anaerobic bottle after 24 hours. 11/22/21 21:18 Aerobic Blood Culture - Preliminary Blood No growth in Aerobic bottle after 24 hours. Anaerobic Blood Culture - Preliminary No growth in Anaerobic bottle after 24 hours. 11/24/21 11:28 POC Glucose 76
[2021-11-24] MEDS ORDERED: GLYCOPYRROLATE 0.2 MG/ML VIAL ONE (12:36)
[2021-11-24] MEDS ORDERED: LIDOCAINE 2% MPF LOCAL 5 ML VIAL INFIL ONE (12:36)
[2021-11-24] MEDS ORDERED: ROCURONIUM BROMIDE 10 MG/ML 5 ML VIAL IV ONE (12:36)
[2021-11-24] MEDS ORDERED: ONDANSETRON INJ 2 MG/ML 2 ML VIAL ONE (12:36)
[2021-11-24] MEDS ORDERED: PROPOFOL IV EMULSION 10 MG/ML 20 ML VIAL IV ONE (12:36)
[2021-11-24] MEDS ORDERED: NEOSTIGMINE METHYLSULFATE 1 MG/ML 10ML VIAL ONE (12:36)
--- NOTE | 2021-11-24 12:48 | Operative Report ---
PG Post Operative Report Pre & Post Diagnosis Operation Date: 11/24/21 08:55 Preop diagnosis: Gluteal/perineal abscess Postop diagnosis: Gluteal/perineal abscess I identified the patient and participated in the time-out.: Yes Procedure Operation Date: 11/24/21 08:55 Operation performed: Incision and drainage perineal abscess Surgeon Nadir Clark DO, FACS Vice President & General Manager [employer] Lan Aguilar Estimated Blood Loss 10 Findings Consistent with Post-Op Diagnosis Approximately 30 cc purulent drainage. Culture sent. Hemostasis achieved. Wound packed with gauze. Specimens Cultures perineal abscess Anesthesia Type General Complications none Disposition Accompanied Patient To Recovery: No Disposition: Recovery Room Indications 51-year-old male admitted with perineal cellulitis and abscess. He was treated with antibiotics but was still having pain and inflammation in the area. Plan for incision and drainage of perineal/gluteal abscess in the operating room. The risks of the procedure were discussed, all questions were answered, and the patient agreed to proceed with surgery as planned. Description of Procedure The patient was properly identified, consented, and taken to the operating room where he was placed in the supine position. General endotracheal anesthesia was induced. The patient was then placed in the lithotomy position. SCDs and a safety belt were placed. The patient's anus and buttocks were prepped and draped in the standard sterile fashion. Surgical timeout was performed and all parties were in agreement that this was the correct patient and procedure to be performed and we continued as planned. There was fluctuance and induration along the midline perineum. Digital rectal exam revealed no evidence of any induration or inflammation in the anus. Local anesthetic was injected around the abscess. An incision was made through the median raphae and approximate 30 cc of purulent and bloody drainage was expressed. Cultures were sent. The wound was irrigated and any loculations were broken up with finger fracture. Hemostasis was achieved with cautery. The wound was irrigated and hemostasis confirmed. The wound was packed with gauze. Fluffed gauze, an ABD, and disposable knit underwear were placed. The patient was extubated in the operating room and was transferred to the PACU for recovery in stable condition. All sponge, instrument, needle counts were correct at the conclusion of the procedure. The patient tolerated the procedure well. The physician's commercial real estate assistant was present and scrubbed for the entire the case. He is critical positioning the patient, prepping and draping, retraction and exposure, packing the wound, placement of the dressings. I attest to the content of the Intraoperative Record and any orders documented therein. Any exceptions are noted below.
[2021-11-24] MEDS: fentaNYL citrate 100 MCG/2 ML VIAL IV PRN ×2 (13:14→13:33)
--- NOTE | 2021-11-24 13:52 | Anesthesiology Progress Note ---
Date of Service November 24, 2021 Anesthesia Post Procedure Vital Signs Vital Signs: Temp Pulse Pulse Resp BP Pulse Ox O2 Del Method 11/24/21 13:40 79 16 118/79 92 Room Air 11/24/21 13:30 79 13 118/85 91 Room Air 11/24/21 13:20 81 12 120/93 95 Room Air 11/24/21 13:10 80 13 139/81 96 Oxymask 11/24/21 13:01 36.3 C L 89 13 123/84 97 Oxymask 11/24/21 11:25 36.6 C 75 20 110/74 93 Room Air 11/24/21 07:25 Room Air 11/24/21 07:57 36.7 C 72 16 109/72 91 Room Air 11/23/21 21:51 36.6 C 75 12 121/56 L 95 Room Air 11/23/21 19:25 Room Air 11/23/21 15:39 37.1 C 88 16 131/75 93 Room Air O2 Flow Rate 11/24/21 13:40 11/24/21 13:30 11/24/21 13:20 11/24/21 13:10 9 11/24/21 13:01 9 11/24/21 11:25 11/24/21 07:25 11/24/21 07:57 11/23/21 21:51 11/23/21 19:25 11/23/21 15:39 Pain Intensity Bilateral Groin: Pain Intensity: 3 Rectal: Pain Intensity: 3 Transfer of Care Handoff Completed per policy Notes Mental Status: alert / awake / arousable and participated in evaluation Patient Amnestic to Procedure: Yes Nausea / Vomiting: adequately controlled Pain: adequately controlled Airway Patency, RR, SpO2: stable & adequate BP & HR: stable & adequate Hydration State: stable & adequate Anesthetic Complications: no major complications apparent and Pt Satisfied with anesthetic care
[2021-11-24] MEDS ORDERED: ACETAMINOPHEN 500 MG TAB PO STA (14:48)
[2021-11-24] MEDS ORDERED: SODIUM CHLORIDE 0.9% 1000ML 500 ML IV ONE (14:49)
[2021-11-24] MEDS ORDERED: KETOROLAC TROMETHAMINE 15 MG/ML VIAL IV ONE (14:49)
[2021-11-24] MEDS ORDERED: MAGNESIUM SULFATE / D5W 1 GM/100 ML BAG IV ONE (15:24)
--- NOTE | 2021-11-24 16:11 | Communication Note ---
Date of Service: November 24, 2021 Notified by patient's nurse that he was having a headache and rigors. Mildly tachycardic in the low 100s, otherwise with normal vital signs. Afebrile; temperature around 97.5 upon my arrival. On arrival, patient found to be diffusely rigorous, but completely alert and oriented. He was not diaphoretic. He said he felt cold. He said he had a headache, but denied any major pain elsewhere. Denied any shortness of breath. On exam, patient noted to be diffusely rigors in the upper and lower extremities. Cardiacmildly tachycardic, regular rhythm. Respiratoryclear to auscultation bilateral without crackles or wheezes. Abdomensoft, nontender, nondistended. Extremitiescapillary refill under 3 seconds. Rigorssuspect largely secondary to general anesthesia and possibly fentanyl. Lower suspicion for spontaneous bacteremia, serotonin syndrome. In conjunction with treatment for his headache, he was given a liter of fluid as well as To radol. A bear hugger was available for patient to use if desired. His symptoms resolved within 30 min after administration of therapy. Tachycardia decreased. If returns, will check CBC, lactate, procal, repeat blood cultures. Monitor temperature curve. This documentation was created utilizing dictation software. As such, syntax, grammatical, and word-choice errors may be present. Notes are screened prior to submission in an attempt to reduce these errors. If there are any questions or concerns, please contact the author directly for clarification. Resident Activity Tracking Resident Involvement: Resident Care Provided Care Provided: Adult [facility]
[2021-11-24] MEDS: METOPROLOL SUCC 25MG EXT REL TAB PO SCH (20:12)
[2021-11-24] MEDS: TOPIRAMATE 50 MG TAB PO SCH (20:13)
[2021-11-25] MEDS: ACETAMINOPHEN 500 MG TAB PO SCH ×2 (00:41→08:43)
[2021-11-25] MEDS: AMPICILLIN/SULBACTAM SOD 3,000 MG in 0.9 % SODIUM CHLORIDE 100 ML IV SCH ×2 (02:13→08:33)
[2021-11-25] MEDS: MoRPHine SULFATE 2 MG/ML CARP IV PRN (05:41)
[2021-11-25 08:28] LABS: Calcium 8.3 mg/dl (8.5-10.1); Creatinine Clr Calc Pharmacy 105.3 ml/min; Est GFR (African American) 84.6 ml/min
[2021-11-25 08:29] LABS: Hematocrit (blood only) 43.6 % (40.1-51.0); Mean Corpuscular Hemoglobin 30.1 pg (25.0-34.0); Mean Corpuscular Hgb Conc 34.4 g/dL (32.0-36.0); Mean Corpuscular Volume 87.4 fL (80.0-100.0); Mean Platelet Volume 10.7 fL (9.4-12.4); Platelet Count 131 K/uL (130-400); RDW Coefficient of Variation 12.8 % (11.5-14.5); RDW Standard Deviation 40.5 fL (36.4-46.3); Red Blood Count 4.99 M/uL (4.63-6.08)
[2021-11-25] MEDS: PRAVASTATIN SOD 10 MG TAB PO SCH (08:42)
[2021-11-25] MEDS: CITALOPRAM 20 MG TAB PO SCH (08:43)
--- NOTE | 2021-11-25 10:35 | Discharge Summary ---
Date of Service November 25, 2021 Admission HPI Per Admitting Provider Patient is a 51 yo male with PMHx of DVT currently on anticoagulation, migraine, HLD, aortic insufficiency, thoracic aortic aneurysm, GERD, anxiety, and prediabetes who presented to [facility] ER on 11/22/21 due to perineal pain. Patient states that 2 days ago, he noticed an acute onset of pain between the scrotum and anus with an associated "lump." Pain has progressively worsened and was rated at a 7/10 today. The pain is exacerbated with movement or sitting. Patient got a mirror to try to visualize the area of pain and noticed that there was some swelling and the area "looked purple." There is no reported discharge, drainage, or erythema. He has no hx of similar episodes. Patient denies fever, chills, abd pain, nausea, vomiting, diarrhea, constipation, urinary symptoms (including hematuria, dysuria, urinary frequency, or urinary retention), back pain, weakness, numbness, or tingling. In the ER, CT abd/pelvis revealed a "peripheral enhancing fluid collection measures 2.5 x 3.7 x 3 cm involving the superficial soft tissues of the inferior gluteal cleft." Labs unremarkable including no leukocytosis. UA unremarkable. Patient hemodynamically stable. He notes that IV analgesic has improved the pain from a 7/10 to 1-2/10. COVID negative. Urology was consulted and recommended admission for I&D tomorrow. Admission Exam Per Admitting Provider GENERAL: No acute distress. Well developed and well nourished. Vital signs reviewed as above. EYES: EOMI. Anicteric sclerae. HENT: Moist mucous membranes. RESPIRATORY: Clear to auscultation bilaterally. No wheezing, rales, or rhonchi. CARDIOVASCULAR: Regular rate and rhythm. No murmurs. No JVD. ABDOMEN: Soft and non-tender. Normal bowel sounds. GENITOURINARY: Significant perineal tenderness to palpation. The perineum is inflamed but no central lesion. No discharge or drainage. No erythema. EXTREMITIES: No edema. Non-tender. SKIN: Warm, dry. NEUROLOGIC: A/O x3. Normal speech. No focal neurological deficits. No sensorimotor deficits. PSYCHIATRIC: Cooperative. Appropriate mood and affect. Principal Diagnosis Perianal abscess Discharge Exam GENERAL: No acute distress. Well developed and well nourished HENT: Moist mucous membranes. RESPIRATORY: Clear to auscultation bilaterally. No wheezing, rales, or rhonchi. CARDIOVASCULAR: Regular rate and rhythm. No murmurs. No JVD. ABDOMEN: Soft and non-tender. Normal bowel sounds. GENITOURINARY: Significant perineal tenderness to palpation. The perineum is inflamed but no central lesion. No discharge or drainage. No erythema. Some increased warmth today. EXTREMITIES: No edema. Non-tender. SKIN: Warm, dry. Discharge Data Allergies Allergy/AdvReac Type Severity Reaction Status Date / Time amoxicillin AdvReac Intermediate GI SYMPTOMS Verified 11/22/21 22:46 clavulanic acid AdvReac Intermediate GI SYMPTOMS Verified 11/22/21 22:46 prednisone AdvReac Intermediate hyperactivi Verified 11/22/21 22:46 ty Consultations 11/23/21 00:04 Consult Urology Routine 11/23/21 00:08 ED Decision to Admit Stat 11/24/21 08:45 Consult General Surgery Routine Procedures Performed Operation Date: 11/24/21 08:55 Actual Procedures p Incision and Drainage Gluteal Abscess - Nadir Clark, , FACS Ordered Studies 11/22/21 21:04 CT abd pelvis IV con only Urgent Hospital Course (1) Perianal abscess: Mr. Brown is a 51 yo male with PMHx of DVT currently on anticoagulation, migraine, HLD, aortic insufficiency, thoracic aortic aneurysm, GERD, anxiety, and prediabetes admitted to [facility] on 11/23/21 due to perianal abscess. Acute perianal abscess - CTAP- peripheral enhancing fluid collection measures 2.5 x 3.7 x 3 cm involving the superficial soft tissues of the inferior gluteal cleft - Underwent uncomplicated I&D on 11/24 with general surgery, wound culture still pending at time of discharge - Currently afebrile and without leukocytosis, hemodynamically stable, wound healing appropriately at time of discharge - Unasyn given in hospital. Pt discharged on Augmentin 875 mg BID to complete 7 day course of antibiotics - May need to adjust antibiotics pending wound culture sensitivities post- discharge - Outpatient f/u with general surgery Renal mass -CTAP- 2.7 cm heterogenously enhancing mass of R inferior pole of kidney, concerning for renal cell carcinoma as diagnosis of exclusion -Outpatient f/u with urology for biopsy Recent DVT of RLE - Patient with recent distal DVT with large clot burden of great saphenous vein, for which he is on Eliquis for anticoagulation - Patient notes that he is only intending to be on AC for 1 more week (for total of 3 months AC) - Eliquis resumed in hospital after surgery - No current LE pain, swelling, or rash at time of discharge Hyperlipidemia - Continue home pravastatin - Consider switch to high intensity statin as outpatient Thoracic aortic aneurysm w/o rupture - Patient followed by cardiology - Notes reviewed; last OVN 08/11/21 - Patient to avoid Valsalva maneuver while lifting and no heavy lifting - Continue home metoprolol DM2 - States diet controlled; no medical therapy- A1C of 6.6% in 05/2021 - BSGs acceptable during stay GERD - Patient previously on Nexium (states stopped about 2 months ago) - Reports recent increase in symptoms of GERD - F/u with PCP and outpatient GI as established Anxiety - Continue home Celexa Migraines - Continue home Topamax (2) Dyslipidemia: (3) Thoracic aortic aneurysm, without rupture: (4) Prediabetes: (5) GERD without esophagitis: (6) Anxiety: (7) DVT (deep venous thrombosis): Total Time Total Time Spent Total Time Spent (In Minutes): <30 Discharge Plan Discharge Items Patient Disposition: Home - Self-Care Reason For Visit: PERIANAL ABSCESS Discharge Diagnosis: Perianal abscess Activity: Resume your previous activity Non-emergency contact: Primary Care Provider and Surgeon Call non-emergency contact if: you have any medication questions, your symptoms worsen, your pain is worsening and you have a fever Follow-up/Referrals: Nadir Clark DO, KINGA [Physician] - 12/10/21 9:15 am Cuba Alvarado DO [Primary Care Provider] - Diet: Carb Consistent or DM2 Addtl Attending Provider Instructions: You were admitted to the hospital for an anal abscess. This was treated with IV antibiotics as well as incision and drainage of the infected fluid. A discharge summary will be sent to your primary care physician to ensure continuity of care. Please bring this discharge summary with you to your next office appointment so that your provider can review it at that time. Follow-up appointments: Make a follow-up appointment with your PCP within the next week. It is very important that you follow up with them shortly after discharge from the hospital. -You will also follow up with general surgery in 2 weeks to evaluate your wound. Medications: Your medication list has been reviewed and reconciled upon discharge to ensure accuracy and continuity of care. An updated list of all your medications is included with your hospital discharge paperwork. Please review this list closely, and make note of any changes. We sent a new medication called Augmentin to the pharmacy. Please take Augmentin 875 mg twice a day (morning and evening) for 5 days to treat the remainder of your infection. We will keep an eye on the bacterial culture growth and may need to change the antibiotic if Augmentin is not appropriate. If this is the case, I will call you and prescribe a new antibiotic to treat the bacteria. Take your medications as instructed; do not skip a dose of your medicines. Make sure all of your doctors know every medicine you are taking (including [id number] medicines, vitamins, and supplements). Call your primary care provider before taking any new medicines (including [id number] medicines, vitamins, and supplements), because some of these may interact with your current medications, or may make your symptoms worse. Tell your primary care provider if you cannot afford your medications. CONTACT YOUR PRIMARY CARE PROVIDER if you experience any of the following: Fever Bleeding from wound Abdominal pain Chills Nausea/vomiting Difficulty following your treatment plan, or difficulty taking medications CALL 911 OR GO TO THE EMERGENCY DEPARTMENT if you experience any of the following: Sudden, severe abdominal pain or nausea/vomiting Severe chest pain, or chest pain that radiates (moves) to your jaw or arm Sudden, severe shortness of breath or difficulty breathing Thank you for allowing us to participate in your care. Pending Studies at Discharge: No Stand-Alone Forms: My [facility] Contapps, Work/School Release Medications and DC Order Prescriptions: New amoxicillin-pot clavulanate 875-125 mg tablet 1 tab PO BID Qty: 10 0RF Continued topiramate [Topamax] 50 mg tablet 50 mg PO HS Qty: 90 3RF Rx Instructions: 50 mg PO Bedtime; rizatriptan 5 mg tablet 5 mg PO UD PRN (Reason: Headache) Label Comments: NEVER HAD TO TAKE IT Rx Instructions: take 1 tablet at onset of headache; if no relief, may repeat 1 tablet after at least 2 hrs PO PRN; (DME) lancets [OneTouch Delica Plus Lancet] 33 gauge misc See Rx Instructions .Route Qty: 100 3RF Rx Instructions: use to test once daily (DME) blood-glucose meter [OneTouch Verio Flex meter] Misc See Rx Instructions .Route Qty: 1 0RF Rx Instructions: use to test once daily (DME) OneTouch Verio test strips Strip See Rx Instructions .Route Qty: 100 3RF Rx Instructions: use to test once daily pravastatin 10 mg tablet 10 mg PO QAM Qty: 90 3RF citalopram 20 mg tablet 20 mg PO DAILY Eliquis 5 mg tablet 5 mg PO BID Qty: 60 1RF cetirizine [Zyrtec] 10 mg tablet 10 mg PO QAM metoprolol succinate 25 mg tablet extended release 24 hr 25 mg PO QPM azelastine 205.5 mcg (0.15 %) spray,non-aerosol 2 spray intranasal DAILY Discharge Orders: Discharge Order (Routine); Ordered 11/25/21 Ordered By: Merlene Mendoza Admission Data Admit Date/Time: 11/23/21 00:54 Attending Provider: Juan David Canela Admit Provider: Kyung Meraz Primary Care Provider: Cuba Alvarado Other Providers: Leroy Tang ; Farzad Jackson ; Naidr Clark Other Interventions: Discharge Summary Assessment (RN) Last Done: 11/25/21 12:35 Supervising Physician Co-Signing Physician Notes I personally examined the patient and verified all malik points of history and exam, discussed case, and agree with decision making with Dr Mendoza pain under good control, wants to go home, discussed antibiotics vitals noted nad heent nc at mmm breathing unlabored no accessory muscles good effort no focal neuro deficits perineal abscess - now s/p I&D, stable for home - was on unasyn --> send on entin (discussed that cultures still pending - small chance we might need to change coverage, he is OK w this) renal mass - ongoing urology follow up as outpt for probable biopsy/etc Resident Activity Tracking Resident Involvement: Resident Care Provided Care Provided: Adult [facility]
--- NOTE | 2021-11-25 11:37 | Surgery Progress Note ---
Date of Service November 25, 2021 Assessment & Plan (1) Abscess of perineum: Plan: POD #1 I&D perineal abscess Okay to discharge to home from general surgery standpoint Continue antibiotics, follow cultures Local wound care Wound care instructions and activity restrictions reviewed Sitz bath at home Follow-up in general surgery clinic in 2 weeks, call to schedule appointment Surgery will sign off, call with questions or concerns Admission and Anticipated Discharge Date Admission Date: November 23, 2021 Subjective 51-year-old male POD #1 incision and drainage perineal abscess. Feels much better, just sore around the incision site. Physical Exam Constitutional: WD/WN, vitals as above Skin: no rashes, warm and dry + wound (Packing replaced, no undrained fluid, resolving cellulitis) Results & Data ([facility]) Vital Signs (Past 12 Hours) Vital Signs Temp Pulse Resp BP BP Pulse Ox O2 Del Method 11/25/21 11:21 36.7 C 58 L 16 127/71 94 Room Air 11/25/21 07:45 Room Air 11/25/21 07:39 36.3 C L 74 16 149/65 H 91 Room Air 11/25/21 02:51 36.7 C 68 14 104/62 94 Room Air PG Care Time/CCT Total # of Minutes Spent Total Time Spent with Patient: Total time spent is greater than 50% in coordination of care (as documented) at patient's floor/unit and/or counseling patient: Coding Level of Care Code None Diagnoses Abscess of perineum L02.215
--- NOTE | 2021-11-25 13:13 | Billing Data ---
Date of Service November 25, 2021 Coding Level of Care Code 50830 OBS Care - Discharge
== END 2021-11-25 13:05 | disposition home or self-care (01) ==
LOC: ED 20:11 → 3W 20:11 → SUATTDRO 11-23 00:54 → 3W 11-23 01:52

== ENCOUNTER 2022-03-04 05:35 | Inpatient (IN) ==
--- NOTE | 2022-03-01 09:41 | Anesthesiology Consultation ---
Date of Service March 01, 2022 Assessment & Plan (1) Encounter for pre-operative examination: Chart Review Chart Review: Acceptable Risk for Surgery (pending Gordillo test DOS ) and Patient NOT seen in Pre Admission Testing - Check BSG AM DOS -COVID screening: Per PAT nursing assessment on 02/25/22. Pt admits to a cold over [place]- symptoms have since resolved. No known COVID-19 positive contacts or current COVID-19 related symptoms. Travel screen negative. Patient is NOT vaccinated for Covid. Will order Gordillo test for DOS due to 23 hour observation status- if patient's Gordillo is positive- patient will need rescheduled or will need medical necessity and PUI pathway if surgeon deems patient urgent. Pt was informed and understands per PAT nurse Pt seen by cardio 02/03/22= Patient presents for preoperative cardiovascular evaluation prior to right partial nephrectomy. "He is currently stable and asymptomatic from a cardiovascular standpoint with no anginal symptoms occurring at >4 METS of activity. He has no evidence of CHF or significant valvular abnormality. BP is adequately controlled. Given this information, patient is at an acceptable risk to proceed with upcoming surgery without any additional cardiovascular testing or intervention. He can hold his aspirin therapy from a cardiovascular perspective, typically aspirin is held 7 days prior to surgery." Perirectal abscess I&D 11/24/2021 = done under GA with grade 1 view with glidescope #4 (good view with GS). DVL x1, atraumatic. History Surgery Operation Date: 03/04/22 07:30 Proposed Procedures p Robotic Laparoscopic Assisted Partial Nephrectomy Right - Van Prieto, DO Height/Weight Height: 6 ft Weight: 133.81 kg Allergies Allergy/AdvReac Type Severity Reaction Status Date / Time amoxicillin AdvReac Unknown GI SYMPTOMS Verified 02/25/22 09:53 clavulanic acid AdvReac Unknown GI SYMPTOMS Verified 02/25/22 09:53 prednisone AdvReac Unknown hyperactivi Verified 02/25/22 09:53 ty Medications Home Medications Medication Instructions Recorded Confirmed Last Taken rizatriptan 5 mg tablet 5 mg PO UD PRN Headache 06/11/21 02/25/22 Unknown metoprolol succinate 25 mg 25 mg PO QPM 06/19/21 02/25/22 11/21/21 tablet,extended release 24 hr OneTouch Delica Plus Lancet 33 #100 ea 07/10/21 02/03/22 Unknown gauge (lancets) OneTouch Verio Flex meter #1 ea 07/10/21 02/03/22 Unknown (blood-glucose meter) OneTouch Verio test strips (blood #100 ea 07/10/21 02/03/22 Unknown sugar diagnostic) citalopram 20 mg tablet 20 mg PO QAM 08/11/21 02/25/22 11/21/21 pravastatin 10 mg tablet 10 mg PO QAM #90 tabs 10/03/21 02/25/22 11/21/21 cetirizine 10 mg tablet (Zyrtec) 10 mg PO QAM PRN allergy symptoms 01/12/22 02/25/22 Unknown aspirin 325 mg tablet 325 mg PO QAM 02/03/22 02/25/22 Unknown azelastine 137 mcg (0.1 %) nasal 2 spray intranasal QAM 02/25/22 02/25/22 Unk nown spray aerosol topiramate 50 mg tablet 50 mg PO HS 02/25/22 02/25/22 Unknown Past Medical History Medical History (Updated 03/01/22 @ 09:50 by Coretta Gallego PAYaC) Anxiety Chronic obstructive pulmonary disease BEGINNING STAGES>NO INHALER Clostridioides difficile infection HX Deviated nasal septum Dyslipidemia Gastritis WITH ULCERS DX FEB 2021 - F/U SCOPE/EVERYTHING CLEAR GERD without esophagitis Hearing loss History of anesthesia reaction - 2008> [facility] > AFTER EXTUBATION, WAS UNABLE TO BREATHE> PT UNSURE OF OTHER DETAILS. REPORTS WAS HEAVY SMOKER AT THE TIME. WAS GIVEN SHOT TO TAKE EXTRA FLUID OUT OF BODY - Tolerated GA 11/2021 without noted issues History of COVID-19 12/2019>[place]IZ[place] (PNX BILAT. LUNG CURRIE>DID NOT REQUIRE INTUBATION) History of DVT (deep vein thrombosis) DISTAL DVT - RIGHT LE- AUGUST 2021/ UNKNOWN ETIOLOGY Per PCP note from 08/28/21- heme evaluation was negative in the past after superficial vein thrombosis in 2018, seen by vascular surgery in the past, started on Eliquis x 3 months Hypertension Liver cyst FATTY / U/S ANNUAL Migraines Obstructive sleep apnea NO CPAP Prediabetes Hgb A1C 6.3 - diet controlled Hx of DM per 01/12/22 PCP note Right kidney mass REASON FOR UPCOMING SX Superficial vein thrombosis 4YRS AGO > RIGHT LEG Tachycardia METOPROLOL FOR/CONTROLS Thoracic aortic aneurysm, without rupture Under observation Unremarkable thoracic aorta per 02/19/[address] Mildly dilated aortic root at 4.6cm per 08/05/20 ECHO Thyroid nodule NO FOLLOW UP NEEDED Umbilical hernia without obstruction and without gangrene Past Family History Family History Father Prostate cancer Diabetes Grandmother (Paternal) Diabetes Other Allergic rhinitis Asthma No family history of adverse response to anesthesia Thoracic aortic aneurysm Denies family history of Ovarian cancer Myocardial infarction Breast cancer Lung cancer Colorectal cancer Past Surgical History Surgical History H/O inguinal hernia repair History of ankle surgery LEFT History of appendectomy History of arthroscopy LEFT KNEE History of biopsy THYROID History of carpal tunnel release RIGHT History of colonoscopy History of esophagogastroduodenoscopy (EGD) History of incision and drainage (11/24/21) Incision and drainage perineal abscess Dr. Clark 11/24/2021 History of tooth extraction Hx of lipoma REMOVED FROM [place] [facility] E[facility] AGE 3 [place] teeth removed Social History Smoking Status: Current every day smoker tobacco type: cigarettes Smoking cigarettes per day: 0.5PPD/ADVISED NPO Do You Dip or Chew Tobacco: No Hx Alcohol Use: Yes (RARE /NO DRINK IN 6 MON) Alcohol type: beer alcohol intake frequency: a few times a month Hx Substance Use: Yes (HX MARIJUANA YOUNGER AGE) substance use type: does not use Lab Results Anesthesia Preop Results Results Anesthesia Widget: WBC 7.75 K/ul (4.8-10.8) 02/26/22 Hgb 17.0 g/dl (14.0-18.0) 02/26/22 Hct 51.2 % (40.1-51.0) H 02/26/22 Plt 179 K/uL (130-400) 02/26/22 Na 141 mmol/L (136-145) 02/26/22 K 4.3 mmol/L (3.5-5.1) 02/26/22 Cl 109 mmol/L (98-107) H 02/26/22 CO2 29 mmol/L (21-32) 02/26/22 BUN 13 mg/dl (6-23) 02/26/22 Creat 1.13 mg/dl (0.6-1.4) 02/26/22 Glucose Level 132 mg/dl (70-99(Fasting)) H 02/26/22 HA1c 6.3 % (4.5-5.6) H 01/12/22 Testing Laboratory Results 02/24/22= UA: Negative Electrocardiogram Date: 02/03/22 Findings: + NSR @ (89bpm ) Left axis deviation Inferior infarct, age undetermined (EKG done at cardio clearance appt for surgery- pt optimized per cardio for proc edure and can procee as scheduled) Echocardiogram Date: 08/04/21 EF: 55-60% LV Function: normal RWMA: + none Other Findings: + LVH (mild/concentric ); no diastolic dysfunction Valvular Disease: + no significant valvular disease Mildly dilated right ventricle with normal systolic function Mildly dilated aortic root; 4.6 cm Hepatic cystlike structure, as seen in prior studies No significant change from prior study on 08/05/20 Other Testing Abdomen/Pelvis CT scan 02/19/22= Again seen is a 3.1 cm enhancing cortical mass arising from the lower pole of the right kidney. Renal cell carcinoma remains the diagnosis of exclusion. Otherwise unremarkable CT urogram assessment of the kidneys and ureters. No additional enhancing mass lesion is identified in either kidney. There is no evidence of intra-abdominal metastatic disease. The bladder is normal as visualized. Moderate to advanced colonic diverticulosis without CT evidence of acute diverticulitis. Hepatomegaly and hepatic steatosis. Chest CT 02/19/22= No acute intrathoracic abnormality. No lymphadenopathy or evidence of metastatic disease. Right LE venous doppler 08/19/21= Occlusive venous thrombus of the gastrocnemius veins which are technically part of the deep venous system. Long segment superf icial venous thrombus of the greater saphenous vein. (Treated with Eliquis x 3 months)
[2022-03-04] MEDS ORDERED: LACTATED RINGER'S 1,000 ML IV SCH (06:00)
[2022-03-04] MEDS ORDERED: ATROPINE SULFATE 0.1 MG/ML 10ML SYR IV PRN (06:47)
[2022-03-04] MEDS ORDERED: HYDROmorphone INJ 2 MG/ML SYR/VIAL IV PRN (06:47)
[2022-03-04] MEDS ORDERED: PROMETHAZINE HCL 12.5 MG in SODIUM CHLORIDE 0.9% 50 ML IV PRN (06:47)
[2022-03-04] MEDS ORDERED: ONDANSETRON INJ 2 MG/ML 2 ML VIAL IV PRN ×2 (06:47→14:04)
[2022-03-04] MEDS ORDERED: ePHEDrine sulfate 50 MG/ML AMP IV PRN (06:47)
[2022-03-04] MEDS ORDERED: fentaNYL citrate 100 MCG/2 ML VIAL ONE ×2 (06:53→12:41)
[2022-03-04] MEDS ORDERED: ONDANSETRON INJ 2 MG/ML 2 ML VIAL ONE ×2 (06:53→11:56)
[2022-03-04] MEDS ORDERED: ROCURONIUM BROMIDE 10 MG/ML 5 ML VIAL IV ONE ×6 (06:53→10:09)
[2022-03-04] MEDS ORDERED: LIDOCAINE 2% 2 ML VIAL/AMP(20MG/ML) INFIL ONE (06:53)
[2022-03-04] MEDS ORDERED: MIDAZOLAM HCL 1 MG/ML 2ML VIAL ONE (06:53)
[2022-03-04] MEDS ORDERED: PROPOFOL IV EMULSION 10 MG/ML 20 ML VIAL IV ONE ×2 (06:53→08:21)
[2022-03-04] MEDS ORDERED: KETAMINE 50 MG/5 ML SYRINGE ONE (06:53)
--- NOTE | 2022-03-04 07:15 | History & Physical Bridge Note ---
Date of Service March 04, 2022 History & Physical Bridge Note I have examined the patient, reviewed the History & Physical and in the interval since the performance of the History & Physical I have noted the following changes of clinical significance: no changes noted
[2022-03-04] MEDS ORDERED: MANNITOL 25% 12.5 GM/50 ML VIAL IV ONE (07:21)
[2022-03-04] MEDS ORDERED: ACETAMINOPHEN 1000 MG/100 ML IV IV ONE (07:21)
[2022-03-04] MEDS ORDERED: BUPIVACAINE 0.5 % 5 MG/1 ML MPF 30ML VIAL ONE ×2 (07:27→11:26)
[2022-03-04] MEDS ORDERED: HYDROmorphone INJ 2 MG/ML SYR/VIAL ONE (08:46)
[2022-03-04] MEDS ORDERED: FLOSEAL HEMOSTATIC MATRIX 10ML TOP ONE (09:30)
[2022-03-04] MEDS ORDERED: TISSEEL FIBRIN SEALANT 10ML TOP ONE (09:30)
[2022-03-04] MEDS ORDERED: SURGICEL ABSORB HEMOSTAT 2IN X 14IN TOP ONE (09:30)
[2022-03-04] MEDS ORDERED: ALBUMIN HUMAN 5% 12.5 GM/250 ML VIAL IV ONE (10:43)
[2022-03-04 10:53] LABS: iSTAT Creatinine 1.3 mg/dl (0.6-1.3); iSTAT Hemoglobin 16.3 g/dl (14.0-18.0); iSTAT Ionized Calcium 1.17 mmol/l (1.12-1.32); iSTAT Potassium 5.7 mmol/L (3.3-5.0)
[2022-03-04] MEDS ORDERED: SUGAMMADEX SODIUM 200 MG/2 ML VIAL IV ONE ×2 (11:45→12:21)
[2022-03-04] MEDS ORDERED: ALBUTEROL HFA INHALER 8.5 GM INH ONE (11:47)
--- NOTE | 2022-03-04 11:49 | Operative Report ---
PG Post Operative Report Pre & Post Diagnosis Operation Date: 03/04/22 07:30 Pre-Op Diagnosis: Right Kidney Mass Post: Same, Extensive adhesions, Large Umbilical Hernia I identified the patient and participated in the time-out.: Yes Procedure Operation Date: 03/04/22 07:30 Actual Procedures p Robotic Assisted Laparoscopic Right Partial Nephrectomy With extensive lysis of adhesions (Right) - Van Prieto, Surgeon Van Prieto, II, DO Burr Machine Operator Dora Estimated Blood Loss 100 Findings Consistent with Post-Op Diagnosis Lower pole renal mass. Extensive adhesions of the right lateral wall, liver, ascending colon, and inguinal region. Large umbilical hernia limited ability to remove mass. General surgery intraoperative consult for umbilical hernia repair. Specimens Right renal mass Drains 18 Fr Jolly Anesthesia Type General Complications none Disposition Disposition: Recovery Room Indications Patient with right renal mass suspicious for malignancy. Risks and benefits discussed at length. Description of Procedure The patient was brought to the operative suite and placed under general endotracheal intubation anesthesia in the supine position. The patient was transferred to lateral position with the right flank exposed. The patient was placed into a flex'ed position and then placed into mild reverse Trendelenberg. At this point, the patient prepped and draped in the usual sterile fashion and a timeout was completed. Preoperative weight based antibiotics had been given. TOMMY's and SCD's were placed on the patient's lower extremities. A catheter was placed by nursing using sterile technique. With the time out completed the patient was flexed and the skin was marked. The lateral edge of the rectus muscle was anesthetized. A small incision was made into the skin and subcutaneous tissues. A Varess needle was selected and placed. The needle was easily moved and it was irrigated and aspirated without any issues or concerns for placement. Insufflation commenced. The 8 mm robotic port was placed. The abdominal cavity was further insufflated. The laparoscopic camera was placed and the abdominal cavity inspected. No concerning features were noted. At this point, the skin was marked for port placement and 8mm working ports were placed. The skin was anesthetized down to fascia and an approx 1cm incision was made to place the 3 x 8mm ports. Two 12 mm reproductive healthcare assistant ports were also placed in similar fashion under direct visualization in the paramedian position. The robot was positioned and docked. The camera was placed and all trocars were positioned under direct visualization. Precious Guajardo was integral in port placement, camera utilization, and docking procedure. She also assisted during the extensive lysis of adhesions. She remained in sterile attire and then proceeded to assist the remainder of the case. The colon was mobilized medially to expose the retroperitoneum and the area assessed. Adhesions were freed to allow mobilization. A large amount of further adhesions were noted from the colon and were freed. The liver was found to have extensive adhesions. A large amount of adhesions were also noted in the inguinal region. These were dissected with blunt technique. Cautery was used to assist dissection and control bleeding. Greater than 30 minutes for the lysis and freeing of the adhesions. The large umbilical hernia was assess. Significant fat was appreciated. No bowel or other issues. The retroperitoneal fat was assessed. Starting distally the retroperitoneum was dissected and care was taken to dissect down near the IVC. The gonadal vein and ureter were identified. This was then followed superiorly. Dissection stayed toward the midline along the IVC and the ureter and gonadal vein were followed up towards the renal hilum. The dissection was followed to the renal pelvis. The Renal Vein was identified and exposed. Dissection was taken further superior. A small vessel posterior to the renal vein was found and adhered to the tissues surrounding. It was assessed and appeared to be coming from posterior, possibly a lumbar vein. Clamp placement was assessed and the vein branch had to be cut and ligated due to inability to place clamp due to position. A 5-0 Prolene suture was used to suture the attachment to the renal vein and close the opening. The Renal Artery and Vein were then cleaned and exposed. Clamp placement was assessed and good access was achieved. The renal artery had early branching and two distinct branches were appreciated. Both were cleaned and clamp placement for each was assessed. The perirenal fat anterior to the kidney was then dissected. The mass and surrounding tissues were exposed. The kidney was then further mobilized. The ultrasound probe was placed and the mass further examined. The edges were marked. The Vessels were assessed a final time. Dr. Tang scrubbed in and took first leveler position. A bulldog clamp was placed on the two artery branches and then on the vein. The kidney appropriately blanched. The previously marked margins were used to start the incision into the kidney. The mass was completely excised without evidence of penetrating into the capsule of the mass. The mass was quite deep and dissection was taken down towards the collecting system. The base of resection bed was assessed and small vessels were cauterized. The collecting system did appear to be opened in a small area. A barbed suture was selected and the nephrotomy closed. Care was taken to close the collecting system opening. 3-0 Vicryl sutures were then used to close the edges of the elliptical opening. Two Vicryl sutures were used to close and bolster the edges. At this point, the bulldog clamps were removed. Warm ischemia time, in total, was 12 minute 41 seconds. The kidney was full assessed after removal of clamps. No bleeding or other major areas of concern. Weck and Hemolock clips were used to bolster and tightened to approximate the edges. Surgicel hemostatic agent sheets were placed over the vessels and on the incised edge. Hemostatic agents Tisseel and Floseal were also placed. Hemostatic agent was also placed on the vessels. No major bleeding or other issues. Gerota's tissues were replaced utilizing clips to cover the area. The excised mass was placed in an endocatch bag for removal. The masses was not small enough to be removed through the reproductive healthcare assistant ports. A midline incision was hindered due to the large umbilical hernia. At this point, general surgery with Dr. Orozco and Dr Ruiz. It was determined the umbilical incision would need to be made for removal and that the hernia would require closure in order to remove the tissue. The patient needed to be moved into supine position for this. Plan was determined to finish the remaining portion of the procedure and close all ports except for the robotic port with the specimen. Patient would then be moved to supine and the hernia repaired and the mass removed. The entire dissection space was inspected one final time. No bleeding or injuries or areas of concern were noted. No tumor or other concerning features were noted. At this point, the robot was undocked and moved away from the patient. The port sites were all assessed laparoscopically. The endoscopic bag was moved into one of the robotic perimedian port. The 12 mm port sites were closed with the Faustino-Acuna device and were closed with Vicryl suture. The other ports were assessed and no issues observed. The skin at each site was closed with a stapling device. The area was cleaned and a tegaderm bandages placed on the incision with the bag/mass. Care was then transferred to Dr. Orozco with general surgery. Patient was repositioned and prepped again. Please see their note for full report. The mass was removed through the umbilical incision during the closure of the hernia. I personally scrubbed in to remove the mass within the bag from the umbilical incision. The umbilical hernia was closed and the subcutaneous tissues and skin were closed. See Dr. Hayward report for full details. The patient was cleaned and bandaged. The patient was moved back into the supine position The patient was cleaned, aroused from anesthesia, and transferred to the pacu in stable condition having tolerated the procedure well with no complications. I was present and participated in all aspects of the procedure. ARIC [place] was critical in the portions as mentioned above. Dr. Tang assisted with the excision of the mass. Dr. Orozco was intraoperatively consulted for hernia repair. Plan to monitor in PACU and then admit for monitoring post operatively. I attest to the content of the Intraoperative Record and any orders documented therein. Any exceptions are noted below.
[2022-03-04] MEDS ORDERED: ceFAZolin 330 MG/ML 1 GM VIAL ONE (11:55)
--- NOTE | 2022-03-04 12:39 | Operative Report ---
PG Post Operative Report Pre & Post Diagnosis Operation Date: 03/04/22 07:30 Pre-Op Diagnosis: Right Kidney Mass Post-Op Diagnosis: Right Kidney Mass, Incarcerated Umbilical Hernia I identified the patient and participated in the time-out.: Yes Procedure Operation Date: 03/04/22 07:30 Actual Procedures p Open incarcerated umbilical hernia repair (Right) - Santo Orozco DO Surgeon Santo Orozco DO Purchasing Specialist Conner Estimated Blood Loss 100 Findings See Below Chronically incarcerated 2 cm umbilical hernia containing omentum Specimens Umbilical skin and hernia sac to pathology Portion of omentum to pathology Drains None Anesthesia Type General Complications none Disposition Disposition: Recovery Room Indications 51-year-old male with incarcerated umbilical hernia Description of Procedure I was called to the OR by Dr. Van Prieto of urology due to this patient having a chronically incarcerated umbilical hernia and would like my opinion upon repair this. Upon examination he has a chronically incarcerated umbilical hernia with a fair amount of redundant umbilical skin that is likely been incarcerated for many years. He also would have like to use this hernia site for extraction from his partial nephrectomy. I recommended an open umbilical hernia repair so we may excise the redundant skin at the same time. After his portion of the procedure was finished, his abdomen was prepped and draped in the usual sterile fashion. Timeout was called. The procedure was verified as Open umbilical hernia repair, possible mesh. Surgical, anesthesia and nursing teams agreed and the procedure was begun. After injection of 0.5% Marcaine with epinephrine, a transverse elliptical incision was made using a #15 blade scalpel about the umbilicus. The umbilical skin as well as the hernia sac was then dissected free and removed using electrocautery. The hernia sac was opened and there was omentum present within the hernia sac. A portion of the omentum was tied off using 2-0 silk suture, resected and passed off the specimen. This was done in order to be able to reduce the hernia contents through the hernia itself. At this time the hernia defect became apparent and was around 2 cm. The fascia was then cleared of any tissue so that healthy tissue could be used for repair. The defect was then closed using simple interrupted 1 Ethibond suture. The wound was then irrigated until clear. Hemostasis was achieved using electrocautery. Hemostasis was complete. 3-0 Vicryl was used to close the subcutaneous tissue and deep dermal layer and mary were used to close the skin in a running subcuticular fashion. Sterile dressing was applied. All needle and sponge counts were correct x 2. At this point the patient was awakened from anesthesia, extubated and transported to PACU in stable condition. I attest to the content of the Intraoperative Record and any orders documented therein. Any exceptions are noted below.
[2022-03-04] MEDS: fentaNYL citrate 100 MCG/2 ML VIAL IV PRN ×3 (13:00→13:20)
[2022-03-04 13:03] LABS: Basophils # (auto) 0.05 K/uL (0-0.2); Basophils % (auto) 0.3 %; Eosinophils # (auto) 0.01 K/uL (0-0.50); Eosinophils % (auto) 0.1 %; Hematocrit (blood only) 47.3 % (40.1-51.0); Hemoglobin 15.9 g/dl (14.0-18.0); Immature Granulocytes # (auto) 0.12 K/uL (0.00-0.02); Immature Granulocytes % (auto) 0.7 %; Lymphocytes # (auto) 1.07 K/uL (1.2-3.4); Lymphocytes % (auto) 6.2 %; Mean Corpuscular Hemoglobin 30.8 pg (25.0-34.0); Mean Corpuscular Hgb Conc 33.6 g/dL (32.0-36.0); Mean Corpuscular Volume 91.5 fL (80.0-100.0); Mean Platelet Volume 11.2 fL (9.4-12.4); Monocytes # (auto) 1.31 K/uL (0.24-0.82); Monocytes % (auto) 7.6 %; Neutrophils # (auto) 14.64 K/uL (1.4-6.5); Neutrophils % (auto) 85.1 %; Platelet Count 151 K/uL (130-400); RDW Standard Deviation 43.8 fL (36.4-46.3); Red Blood Count 5.17 M/uL (4.63-6.08)
[2022-03-04 13:23] LABS: BUN Creatinine Ratio 10.6 (10-20); Calcium 8.3 mg/dl (8.5-10.1); Creatinine Clr Calc Pharmacy 75.4 ml/min; Est GFR (African American) 56.2 ml/min; Est GFR (Non-African American) 48.5 ml/min; Potassium 4.8 mmol/L (3.5-5.1)
[2022-03-04] MEDS ORDERED: MoRPHine SULFATE 2 MG/ML CARP IV PRN (14:04)
[2022-03-04] MEDS ORDERED: RIZATRIPTAN BENZOATE 10 MG TAB PO PRN (14:04)
[2022-03-04] MEDS ORDERED: PHARMACY GLYCEMIC MGMT CONSULT PRN (14:04)
[2022-03-04] MEDS ORDERED: oxyCODONE HCL IR 5 MG TAB (IMMEDIATE RELEASE) PO PRN (14:04)
[2022-03-04] MEDS ORDERED: GLUCOSE 10 TAB/TUBE PO PRN (14:15)
[2022-03-04] MEDS ORDERED: GLUCAGON FOR INJ 1 MG VIAL IM PRN (14:15)
[2022-03-04] MEDS ORDERED: CARBOHYDRATES FOR HYPOGLYCEMIA PO PRN (14:15)
[2022-03-04] MEDS ORDERED: DEXTROSE 50% 50 ML SYRINGE IV PRN (14:15)
[2022-03-04] MEDS ORDERED: GLUCOSE 40% GEL 15 GM TUBE PO PRN (14:15)
--- NOTE | 2022-03-04 14:20 | Anesthesiology Progress Note ---
Date of Service March 04, 2022 Anesthesia Post Procedure Vital Signs Vital Signs: Temp Pulse Pulse Resp BP Pulse Ox O2 Del Method 03/04/22 13:35 36.7 C 85 10 L 119/75 93 Nasal Cannula 03/04/22 13:15 88 10 L 131/81 92 Oxymask 03/04/22 13:05 84 9 L 153/83 H 94 Oxymask 03/04/22 13:25 36.7 C 90 14 138/86 93 Oxymask 03/04/22 12:55 90 9 L 137/87 93 Oxymask 03/04/22 12:47 36.3 C L 89 18 140/96 95 Oxymask 03/04/22 06:37 36.7 C 76 20 125/76 95 Room Air O2 Flow Rate 03/04/22 13:35 3 03/04/22 13:15 3 03/04/22 13:05 5 03/04/22 13:25 3 03/04/22 12:55 5 03/04/22 12:47 7 03/04/22 06:37 Pain Intensity Abdomen: Pain Intensity: 2 Transfer of Care Handoff Completed per policy Notes Mental Status: alert / awake / arousable and participated in evaluation Patient Amnestic to Procedure: Yes Nausea / Vomiting: adequately controlled Pain: adequately controlled Airway Patency, RR, SpO2: stable & adequate BP & HR: stable & adequate Hydration State: stable & adequate Anesthetic Complications: no major complications apparent
--- NOTE | 2022-03-04 14:49 | Pharmacy Report ---
Pharmacy Glycemic Short Note 2 - Date of Service March 04, 2022 - Glycemic Short BSG Results (Last 24 hours): 03/04/22 03/04/22 03/04/22 06:23 10:27 12:50 Glucose 181 H POC Glucose 134 H POC Glucose (other) 193 H 03/04/22 12:52 Glucose POC Glucose 157 H POC Glucose (other) OUTPATIENT ANTIDIABETIC REGIMEN: * None * HbA1c: 6.3% (01/12/22) ASSESSMENT: * 51 yo M admitted postoperatively today. Pharmacy has been consulted to assist with inpatient glycemic management. A1c demonstrates prediabetes which is diet controlled as an outpatient. Ordered a clear liquid diet for now. * BSGs today were: 134-181-157 mg/dL. * Will hold off on any basal insulin for the time being. * Starting Novolog based on weight/stress of 2. PLAN FOR INPATIENT GLYCEMIC CONTROL: * Basal insulin * None * Bolus insulin * NovoLog per scale ACHS or Q6hrs while NPO * Goal Range: Low 110 mg/dL - High 140 mg/dL * Correction Factor: 20 mg/dL/unit * Nutritional / Prandial insulin per carb ratio of 1 unit per 8 grams CHO consumed
--- NOTE | 2022-03-04 14:58 | History & Physical Report ---
Date of Service March 04, 2022 Assessment & Plan (1) Right kidney mass: Plan: - POD #0 - Pain/ABX/IVF/diet/drain management/transfusion needs/activity per primary team - Rescue Narcan ordered for over sedation PRN - VTE prophylaxis per primary service- SCDs in place - CBC and BMP in AM. - Baseline renal function: Baseline 11.15, postop 1.60 on 03/04--> IVF, repeat in a.m. - Baseline Hgb: pre-op 17.0 on 02/26; 15.9 on 03/04 post-op (2) Umbilical hernia without obstruction and without gangrene: Plan: - Repaired as above. (3) WILLIAM (acute kidney injury): Plan: - Patient has baseline creatinine of 1.01.15, his postop creatinine is 1.60. All electrolytes are within normal limits. We will continue IV fluids overnight and repeat BMP in AM. (4) Migraine: Plan: - Continue rizatriptan as needed for migraine headaches, topiramate HS for prevention. (5) Anxiety: Plan: - Continue citalopram. (6) Dyslipidemia: Plan: - Continue pravastatin. (7) GERD without esophagitis: Plan: - History of gastritis with ulcers February 2021, had a follow-up EGD in Maynormal esophagus, gastritis, normal duodenal bulb and duodenum. - Will add on Protonix as preventative measure. (8) Prediabetes: Plan: - Most recent A1c 6.3%, diet controlled. - Glucose 181 on afternoon BMP. - Pharmacy consulted by primary team for glycemic management, SSI ordered with goal range [id number], CF 20 and CR 8 (9) Tachycardia: Plan: - Continue metoprolol 25 mg HS. (10) Thoracic aortic aneurysm, without rupture: Plan: - Under observation - Unremarkable thoracic aorta per 02/19/[address] - Mildly dilated aortic root at 4.6cm per 08/05/20 ECHO Plan - Admitted to [facility] per primary team. - SCDs, heparin every 12 hours ordered per primary team. - Full code. Admission and Anticipated Discharge Date Admission Date: March 04, 2022 History of Present Illness Primary Care Provider: Cuba Alvarado DO Raúl Brown is a 51-year-old male with a past medical history of DVT (see completed AC), migraine, HLD, tachycardia, aortic insufficiency, thoracic aortic aneurysm, GERD, anxiety, and prediabeteswho was admitted today, 03/04 for a laparoscopic right partial nephrectomy and repair of a chronically incarcerated umbilical hernia. Hospitalist group was consulted for post-operative medication management. Today, he is POD#0 and feels well. Denies fever/chills, weakness, chest pain, palpitations, shortness of breath, cough, orthopnea, abdominal pain, nausea, vomiting. Allergies Allergy/AdvReac Type Severity Reaction Status Date / Time amoxicillin AdvReac Unknown GI SYMPTOMS Verified 03/04/22 06:32 clavulanic acid AdvReac Unknown GI SYMPTOMS Verified 03/04/22 06:32 prednisone AdvReac Unknown hyperactivi Verified 03/04/22 06:32 ty Home Medications Medication Instructions Recorded Confirmed Type rizatriptan 5 mg tablet 5 mg PO UD PRN Headache 06/11/21 02/25/22 History metoprolol succinate 25 mg 25 mg PO QPM 06/19/21 03/04/22 History tablet,extended release 24 hr OneTouch Delica Plus Lancet 33 #100 ea 07/10/21 02/03/22 Rx gauge (lancets) OneTouch Verio Flex meter #1 ea 07/10/21 02/03/22 Rx (blood-glucose meter) OneTouch Verio test strips (blood #100 ea 07/10/21 02/03/22 Rx sugar diagnostic) citalopram 20 mg tablet 20 mg PO QAM 08/11/21 03/04/22 History pravastatin 10 mg tablet 10 mg PO QAM #90 tabs 10/03/21 03/04/22 Rx cetirizine 10 mg tablet (Zyrtec) 10 mg PO QAM PRN allergy symptoms 01/12/22 03/04/22 History aspirin 325 mg tablet 325 mg PO QAM 02/03/22 03/04/22 History azelastine 137 mcg (0.1 %) nasal 2 spray intranasal QAM 02/25/22 03/04/22 History spray aerosol topiramate 50 mg tablet 50 mg PO HS 02/25/22 03/04/22 History Past Med/Surg History Medical History (Updated 03/04/22 @ 14:51 by Nancie Wilson PA-C) Anxiety Chronic obstructive pulmonary disease BEGINNING STAGES>NO INHALER Clostridioides difficile infection HX Deviated nasal septum Dyslipidemia Gastritis WITH ULCERS DX FEB 2021 - F/U SCOPE/EVERYTHING CLEAR GERD without esophagitis Hearing loss History of anesthesia reaction - 2008> [facility] > AFTER EXTUBATION, WAS UNABLE TO BREATHE> PT UNSURE OF OTHER DETAILS. REPORTS WAS HEAVY SMOKER AT THE TIME. WAS GIVEN SHOT TO TAKE EXTRA F LUID OUT OF BODY - [place] 11/2021 without noted issues History of COVID-19 12/2019>HOSPITALIZED IN [place] (PNX BILAT. LUNG CURRIE>DID NOT REQUIRE INTUBATION) History of DVT (deep vein thrombosis) DISTAL DVT - RIGHT LE- AUGUST 2021/ UNKNOWN ETIOLOGY Per PCP note from 08/28/21- heme evaluation was negative in the past after superficial vein thrombosis in 2018, seen by vascular surgery in the past, started on Eliquis x 3 months Hypertension Liver cyst FATTY / U/S ANNUAL Migraines Obstructive sleep apnea NO CPAP Prediabetes Hgb A1C 6.3 - diet controlled Hx of DM per 01/12/22 PCP note Right kidney mass REASON FOR UPCOMING SX Superficial vein thrombosis 4YRS AGO > RIGHT LEG Tachycardia METOPROLOL FOR/CONTROLS Thoracic aortic aneurysm, without rupture Under observation Unremarkable thoracic aorta per 02/19/[address] Mildly dilated aortic root at 4.6cm per 08/05/20 ECHO Thyroid nodule NO FOLLOW UP NEEDED Umbilical hernia without obstruction and without gangrene Surgical History H/O inguinal hernia repair History of ankle surgery LEFT History of appendectomy History of arthroscopy LEFT KNEE History of biopsy THYROID History of carpal tunnel release RIGHT History of colonoscopy History of esophagogastroduodenoscopy (EGD) History of incision and drainage (11/24/21) Incision and drainage perineal abscess Dr. Clark 11/24/2021 History of tooth extraction Hx of lipoma REMOVED FROM BEHIND BILAT EARS AGE 3 [place] teeth removed Family History Father Prostate cancer Diabetes Grandmother (Paternal) Diabetes Other Allergic rhinitis Asthma No family history of adverse response to anesthesia Thoracic aortic aneurysm Denies family history of Ovarian cancer Myocardial infarction Breast cancer Lung cancer Colorectal cancer Social History Smoking Status: Current every day smoker Tobacco Type: Cigarettes Age Started Using Tobacco: 14; packs per day: 0.5; Cigarettes Per Day: 0.5PPD/ADVISED NPO; Second Hand Exposure: No; Do You Dip or Chew Tobacco: No; Hx Alcohol Use: Yes (RARE /NO DRINK IN 6 MON) Alcohol type: beer Alcohol Intake Frequency Comment: 1-2 x/month Hx Substance Use: Yes (HX MARIJUANA YOUNGER AGE) Preferred Language: Montenegrin Communication Ability: Effective Visual Impairment: Limited Hearing Ability: Normal Exercise Instruct Required: No Beliefs That Will Affect Care: None marital status: Current Living Situation: Spouse Current Living Situation Comment: AND SON current occupational status: employed current occupation: works in a [employer] How many Children do You have: 1 Other Information That Helps Us Care for You: No Feels Safe at Home: Yes Childhood Exposure to Second-Hand Smoke: Yes caffeine: Yes (coffee ) Dental Care, Regularly: Yes Physical Activity Frequency: Does not Exercise Seatbelt Use: always Sunscreen Use: Yes Assistive Devices: None Results & Data Results & Data ([facility]) Vital Signs (Past 12 Hours) Vital Signs Temp Pulse Pulse Resp BP Pulse Ox O2 Del Method 03/04/22 14:31 Nasal Cannula 03/04/22 14:26 85 18 125/79 91 Nasal Cannula 03/04/22 14:20 36.4 C L 92 H 18 117/76 92 Nasal Cannula 03/04/22 13:35 36.7 C 85 10 L 119/75 93 Nasal Cannula 03/04/22 13:15 88 10 L 131/81 92 Oxymask 03/04/22 13:05 84 9 L 153/83 H 94 Oxymask 03/04/22 13:25 36.7 C 90 14 138/86 93 Oxymask 03/04/22 12:55 90 9 L 137/87 93 Oxymask 03/04/22 12:47 36.3 C L 89 18 140/96 95 Oxymask 03/04/22 06:37 36.7 C 76 20 125/76 95 Room Air O2 Flow Rate 03/04/22 14:31 3 03/04/22 14:26 3 03/04/22 14:20 3 03/04/22 13:35 3 03/04/22 13:15 3 03/04/22 13:05 5 03/04/22 13:25 3 03/04/22 12:55 5 03/04/22 12:47 7 03/04/22 06:37 Laboratory Results Abnormal lab results 03/04/22 03/04/22 03/04/22 Range/Units 06:23 10:27 10:44 WBC (4.8-10.8) K/ul Neut # (Auto) (1.4-6.5) K/uL Lymph # (Auto) (1.2-3.4) K/uL [place] # (Auto) (0.24-0.82) K/uL Immature Gran # (Auto) (0.00-0.02) K/uL POC Potassium 5.7 H (3.3-5.0) mmol/L Potassium 5.5 H (3.5-5.1) mmol/L Chloride (98-107) mmol/L POC Total CO2 22 L (24-31) mmol/L POC Anion Gap 14.0 L (16-25) mmol/L Creatinine (0.6-1.4) mg/dl Glucose (70-99(Fasting)) mg/dl POC Glucose 134 H (70-99) mg/dl POC Glucose (other) 193 H (70-99) mg/dl Calcium (8.5-10.1) mg/dl 03/04/22 03/04/22 03/04/22 Range/Units 12:50 12:50 12:52 WBC 17.20 H (4.8-10.8) K/ul Neut # (Auto) 14.64 H (1.4-6.5) K/uL Lymph # (Auto) 1.07 L (1.2-3.4) K/uL [place] # (Auto) 1.31 H (0.24-0.82) K/uL Immature Gran # (Auto) 0.12 H (0.00-0.02) K/uL POC Potassium (3.3-5.0) mmol/L Potassium (3.5-5.1) mmol/L Chloride 108 H (98-107) mmol/L POC Total CO2 (24-31) mmol/L POC Anion Gap (16-25) mmol/L Creatinine 1.60 H (0.6-1.4) mg/dl Glucose 181 H (70-99(Fasting)) mg/dl POC Glucose 157 H (70-99) mg/dl POC Glucose (other) (70-99) mg/dl Calcium 8.3 L (8.5-10.1) mg/dl Code Status & VTE Plan Code Status Full code. VTE Prophylaxis Plan VTE Prophylaxis will be ordered: Yes PG Care Time/CCT Total # of Minutes Spent Total Time Spent with Patient: Total time spent is greater than 50% in coordination of care (as documented) at patient's floor/unit and/or counseling patient: Coding Level of Care Code 23701 INT INP/OBS CARE 2/55MIN Diagnoses Right kidney mass N28.89 Umbilical hernia without obstruction and without gangrene K42.9 WILLIAM (acute kidney injury) N17.9 Migraine G43.909 Anxiety F41.9 Dyslipidemia E78.5 GERD without esophagitis K21.9 Prediabetes R73.03 Tachycardia R00.0 Thoracic aortic aneurysm, without rupture I71.2
--- NOTE | 2022-03-04 15:02 | Hospitalist Consultation ---
Date of Consultation March 04, 2022 Assessment & Plan (1) Right kidney mass: - POD #0, 200cc EBL, no complications, however general surgery did have to be called in for repair of chronically incarcerated inguinal hernia in order to continue with partial nephrectomy. - Pain/ABX/IVF/diet/drain management/transfusion needs/activity per primary team. - Rescue Narcan ordered for over sedation PRN. - VTE prophylaxis per primary service- SCDs in place. - CBC and BMP in AM. - Baseline renal function: Baseline 11.15, postop 1.60 on 03/04--> IVF, repeat in a.m. - Baseline Hgb: pre-op 17.0 on 02/26; 15.9 on 03/04 post-op, repeat later in afternoon given abdominal pain and hypotention--> 15.1 (2) Umbilical hernia without obstruction and without gangrene: - Repaired as above. (3) WILLIAM (acute kidney injury): - Patient has baseline creatinine of 1.01.15, his postop creatinine is 1.60. All electrolytes are within normal limits. We will continue IV fluids overnight and repeat BMP in AM. (4) Migraine: - Continue rizatriptan as needed for migraine headaches, topiramate HS for prevention. (5) Anxiety: - Continue citalopram. (6) Dyslipidemia: - Continue pravastatin. (7) GERD without esophagitis: - History of gastritis with ulcers February 2021, had a follow-up EGD in Maynormal esophagus, gastritis, normal duodenal bulb and duodenum. - Will add on Protonix as preventative measure. (8) Prediabetes: - Most recent A1c 6.3%, diet controlled. - Glucose 181 on afternoon BMP. - Pharmacy consulted by primary team for glycemic management, SSI ordered with goal range [id number], CF 20 and CR 8 (9) Tachycardia: - Continue metoprolol 25 mg HS. (10) Thoracic aortic aneurysm, without rupture: - Under observation - Unremarkable thoracic aorta per 02/19/[address] - Mildly dilated aortic root at 4.6cm per 08/05/20 ECHO Plan - Admitted to [facility] per primary team. - SCDs, heparin every 12 hours ordered per primary team. - Full code. Supervising Physician Co-Signing Physician Notes Patient seen and examined, chart reviewed, case discussed with Nancie Wilson PA-C and I agree with the assessment and plan as above except as otherwise noted above. 51yo M who presented for partial nephrectomy c/b chronic incarcerated hernia repair. Post-op with TTP overlight RLQ and surgical incisions, no guarding/rebound. Surgical dressings C/D/I, lungs CTAB. Pt with transient hypotension following morphine, improved on fluids and on re-evaluation. COntinue scaled analgesia and LR 125cc/hr. Agree with +protonix for gastric PPx, and addition of hgb given hypotension. Agree with tx of chronic issues as above.ent] History of Present Illness Reason for Consultation: Postop medical management Requesting Physician: Van Prieto II, Attending Physician: Van Prieto II, DO History of Present Illness Raúl Brown is a 51-year-old male with a past medical history of DVT (completed AC), migraine, HLD, tachycardia, aortic insufficiency, thoracic aortic aneurysm, GERD, anxiety, and prediabetes who was admitted today, 03/04 for a laparoscopic right partial nephrectomy and repair of a chronically incarcerated umbilical hernia. Hospitalist group was consulted for post-operative medication management. Today, he is POD#0 and feels well. Complaining of a sore throat which he attributes to intubation. Still using 3L NC with O2 sats low 90s but not complaining of any chest pain, shortness of breath, palpitations. He has some right-sided abdominal pain, 4-5/10. is at bedside, patient with a clear liquid tray, tolerating intake. Later in the day, patient became mildly hypotensive 90/83, a STAT H/H was ordered to rule out acute blood loss, came back at 15.1, minimally decreased from 15.7 several hours prior. BP improved back to 122/77 with continued IVF. Allergies Allergy/AdvReac Type Severity Reaction Status Date / Time amoxicillin AdvReac Unknown GI SYMPTOMS Verified 03/04/22 06:32 clavulanic acid AdvReac Unknown GI SYMPTOMS Verified 03/04/22 06:32 prednisone AdvReac Unknown hyperactivi Verified 03/04/22 06:32 ty Home Medications Medication Instructions Recorded Confirmed Type rizatriptan 5 mg tablet 5 mg PO UD PRN Headache 06/11/21 02/25/22 History metoprolol succinate 25 mg 25 mg PO QPM 06/19/21 03/04/22 History tablet,extended release 24 hr OneTouch Delica Plus Lancet 33 #100 ea 07/10/21 02/03/22 Rx gauge (lancets) OneTouch Verio Flex meter #1 ea 07/10/21 02/03/22 Rx (blood-glucose meter) OneTouch Verio test strips (blood #100 ea 07/10/21 02/03/22 Rx sugar diagnostic) citalopram 20 mg tablet 20 mg PO QAM 08/11/21 03/04/22 History pravastatin 10 mg tablet 10 mg PO QAM #90 tabs 10/03/21 03/04/22 Rx cetirizine 10 mg tablet (Zyrtec) 10 mg PO QAM PRN allergy symptoms 01/12/22 03/04/22 History aspirin 325 mg tablet 325 mg PO QAM 02/03/22 03/04/22 History azelastine 137 mcg (0.1 %) nasal 2 spray intranasal QAM 02/25/22 03/04/22 History spray aerosol topiramate 50 mg tablet 50 mg PO HS 02/25/22 03/04/22 History Patient History Medical History Anxiety Chronic obstructive pulmonary disease BEGINNING STAGES>NO INHALER Clostridioides difficile infection HX Deviated nasal septum Dyslipidemia Gastritis WITH ULCERS DX FEB 2021 - F/U SCOPE/EVERYTHING CLEAR GERD without esophagitis Hearing loss History of anesthesia reaction - 2008> [facility] > AFTER EXTUBATION, WAS UNABLE TO BREATHE> PT UNSURE OF OTHER DETAILS. REPORTS WAS HEAVY SMOKER AT THE TIME. WAS GIVEN SHOT TO TAKE EXTRA FLUID OUT OF BODY - [place]erated [place] 11/2021 without noted issues History of COVID-19 12/2019>HOSPITALIZED IN [place] (PNX BILAT. LUNG CURRIE>DID NOT REQUIRE INTUBATION) History of DVT (deep vein thrombosis) DISTAL DVT - RIGHT LE- AUGUST 2021/ UNKNOWN ETIOLOGY Per PCP note from 08/28/21- heme evaluation was negative in the past after superficial vein thrombosis in 2018, seen by vascular surgery in the past, started on Eliquis x 3 months Hypertension Liver cyst FATTY / U/S ANNUAL Migraines Obstructive sleep apnea NO CPAP Prediabetes Hgb A1C 6.3 - diet controlled Hx of DM per 01/12/22 PCP note Right kidney mass REASON FOR UPCOMING SX Superficial vein thrombosis 4YRS AGO > RIGHT LEG Tachycardia METOPROLOL FOR/CONTROLS Thoracic aortic aneurysm, without rupture Under observation Unremarkable thoracic aorta per 02/19/[address] Mildly dilated aortic root at 4.6cm per 08/05/20 ECHO Thyroid nodule NO FOLLOW UP NEEDED Umbilical hernia without obstruction and without gangrene Surgical History H/O inguinal hernia repair History of ankle surgery LEFT History of appendectomy History of arthroscopy LEFT KNEE History of biopsy THYROID History of carpal tunnel release RIGHT History of colonoscopy History of esophagogastroduodenoscopy (EGD) History of incision and drainage (11/24/21) Incision and drainage perineal abscess Dr. Clark 11/24/2021 History of tooth extraction Hx of lipoma REMOVED FROM [facility] BILAT EARS AGE 3 [place] teeth removed Family History Father Prostate cancer Diabetes Grandmother (Paternal) Diabetes Other Allergic rhinitis Asthma No family history of adverse response to anesthesia Thoracic aortic aneurysm Denies family history of Ovarian cancer Myocardial infarction Breast cancer Lung cancer Colorectal cancer Social History Smoking Status: Current every day smoker Tobacco Type: Cigarettes Age Started Using Tobacco: 14; packs per day: 0.5; Cigarettes Per Day: 0.5PPD/ADVISED NPO; Second Hand Exposure: No; Do You Dip or Chew Tobacco: No; Hx Alcohol Use: Yes (RARE /NO DRINK IN 6 MON) Alcohol type: beer Alcohol Intake Frequency Comment: 1-2 x/month Hx Substance Use: Yes (HX MARIJUANA YOUNGER AGE) Preferred Language: Mohawk Communication Ability: Effective Visual Impairment: Limited Hearing Ability: Normal 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 Required: No Beliefs That Will Affect Care: None marital status: Current Living Situation: Spouse Current Living Situation Comment: AND SON current occupational status: employed current occupation: works in a [employer] How many Children do You have: 1 Other Information That Helps Us Care for You: No Feels Safe at Home: Yes Childhood Exposure to Second-Hand Smoke: Yes caffeine: Yes (coffee ) Dental Care, Regularly: Yes Physical Activity Frequency: Does not Exercise Seatbelt Use: always Sunscreen Use: Yes Assistive Devices: None Review of Systems Review of Systems: Constitutional: No fever/chills, weakness, fatigue, myalgias, anorexia, night sweats Eyes: No diplopia, no worsening or blurred vision ENT: normal hearing, no trouble swallowing Respiratory: No cough, sputum, dyspnea at rest or on exertion Cardiovascular: No chest pain, tightness or palpitations Abdomen: right sided abdominal pain; no nausea, vomiting, diarrhea or constipation : Denies dysuria, hematuria, increased urgency/frequency, urinary retention Musculoskeletal: No joint pain, calf pain, swelling Neurologic: No weakness, numbness/tingling, or balance problems Psychiatric: No anxiety or depression Skin: No rash or itch Physical Exam Physical Exam: General: awake, alert, no apparent distress Head: Normocephalic, atraumatic ENT: PERRL, EOMI, no pharyngeal exudate, mucous membranes moist Chest: Clear to auscultation, on 3L NC, no adventitious breath sounds Cardiac: Regular rate and rhythm, no murmur, no JVD, normal peripheral pulses, good capillary refill Abdominal: mildly TTP in right abdomen; NABS x 4 quadrants, soft, no rebound, guarding or tenderness Extremities: Normal inspection, no peripheral edema or erythema, calfs nontender to palpation Psych: Normal mood and affect Neuro: AAO x 3, strength intact bilaterally and rated 5/5, no motor deficits, speech is clear, no peripheral sensory deficits Skin: no rash or erythema Results & Data Results & Data ([facility]) Vital Signs (Past 12 Hours) Vital Signs Temp Pulse Pulse Resp BP Pulse Ox O2 Del Method 03/04/22 14:54 36.4 C L 82 18 129/85 91 Nasal Cannula 03/04/22 14:31 Nasal Cannula 03/04/22 14:26 85 18 125/79 91 Nasal Cannula 03/04/22 14:20 36.4 C L 92 H 18 117/76 92 Nasal Cannula 03/04/22 13:35 36.7 C 85 10 L 119/75 93 Nasal Cannula 03/04/22 13:15 88 10 L 131/81 92 Oxymask 03/04/22 13:05 84 9 L 153/83 H 94 Oxymask 03/04/22 13:25 36.7 C 90 14 138/86 93 Oxymask 03/04/22 12:55 90 9 L 137/87 93 Oxymask 03/04/22 12:47 36.3 C L 89 18 140/96 95 Oxymask 03/04/22 06:37 36.7 C 76 20 125/76 95 Room Air O2 Flow Rate 03/04/22 14:54 3 03/04/22 14:31 3 03/04/22 14:26 3 03/04/22 14:20 3 03/04/22 13:35 3 03/04/22 13:15 3 03/04/22 13:05 5 03/04/22 13:25 3 03/04/22 12:55 5 03/04/22 12:47 7 03/04/22 06:37 Laboratory Results Abnormal lab results 03/04/22 03/04/22 03/04/22 Range/Units 06:23 10:27 10:44 WBC (4.8-10.8) K/ul Neut # (Auto) (1.4-6.5) K/uL Lymph # (Auto) (1.2-3.4) K/uL [place] # (Auto) (0.24-0.82) K/uL Immature Gran # (Auto) (0.00-0.02) K/uL POC Potassium 5.7 H (3.3-5.0) mmol/L Potassium 5.5 H (3.5-5.1) mmol/L Chloride (98-107) mmol/L POC Total CO2 22 L (24-31) mmol/L POC Anion Gap 14.0 L (16-25) mmol/L Creatinine (0.6-1.4) mg/dl Glucose (70-99(Fasting)) mg/dl POC Glucose 134 H (70-99) mg/dl POC Glucose (other) 193 H (70-99) mg/dl Calcium (8.5-10.1) mg/dl 03/04/22 03/04/22 03/04/22 Range/Units 12:50 12:50 12:52 WBC 17.20 H (4.8-10.8) K/ul Neut # (Auto) 14.64 H (1.4-6.5) K/uL Lymph # (Auto) 1.07 L (1.2-3.4) K/uL [place] # (Auto) 1.31 H (0.24-0.82) K/uL Immature Gran # (Auto) 0.12 H (0.00-0.02) K/uL POC Potassium (3.3-5.0) mmol/L Potassium (3.5-5.1) mmol/L Chloride 108 H (98-107) mmol/L POC Total CO2 (24-31) mmol/L POC Anion Gap (16-25) mmol/L Creatinine 1.60 H (0.6-1.4) mg/dl Glucose 181 H (70-99(Fasting)) mg/dl POC Glucose 157 H (70-99) mg/dl POC Glucose (other) (70-99) mg/dl Calcium 8.3 L (8.5-10.1) mg/dl PG Care Time/CCT Total # of Minutes Spent Total Time Spent with Patient: Total time spent is greater than 50% in coordination of care (as documented) at patient's floor/unit and/or counseling patient: Coding Level of Care Code INP/OBS CONSULT LVL 4, 60 MIN Diagnoses Right kidney mass N28.89 Umbilical hernia without obstruction and without gangrene K42.9 WILLIAM (acute kidney injury) N17.9 Migraine G43.909 Anxiety F41.9 Dyslipidemia E78.5 GERD without esophagitis K21.9 Prediabetes R73.03 Tachycardia R00.0 Thoracic aortic aneurysm, without rupture I71.2
[2022-03-04] MEDS: LACTATED RINGER'S 1,000 ML IV SCH (15:16)
[2022-03-04] MEDS: ACETAMINOPHEN 325 MG TAB PO SCH ×2 (15:44→20:24)
[2022-03-04] MEDS: oxyCODONE HCL IR 5 MG TAB (IMMEDIATE RELEASE) PO PRN ×2 (17:55→22:17)
[2022-03-04] MEDS: INSULIN ASPART PER UNIT SC SCH ×2 (17:55→20:44)
[2022-03-04 18:02] LABS: Hematocrit (blood only) 44.9 % (40.1-51.0); Hemoglobin 15.1 g/dl (14.0-18.0)
[2022-03-04] MEDS: METOPROLOL SUCC 25MG EXT REL TAB PO SCH (20:24)
[2022-03-04] MEDS: DOCUSATE SODIUM 100 MG CAP PO SCH (20:24)
[2022-03-04] MEDS: TOPIRAMATE 50 MG TAB PO SCH (20:24)
[2022-03-04] MEDS: ceFAZolin 2000MG 2,000 MG/15 ML SYR IV SCH (20:25)
[2022-03-04] MEDS ORDERED: SIMETHICONE 80 MG CHEW PO ONE (22:05)
[2022-03-04] MEDS: HEPARIN SOD 5,000 UNIT/0.5 ML VIAL SQ SCH (22:17)
[2022-03-04] MEDS: MoRPHine SULFATE 4 MG/ML 1 ML CARP\\VIAL IV PRN (23:25)
[2022-03-05] MEDS: LACTATED RINGER'S 1,000 ML IV SCH ×2 (01:40→08:58)
[2022-03-05] MEDS: ceFAZolin 2000MG 2,000 MG/15 ML SYR IV SCH (03:44)
[2022-03-05] MEDS: ACETAMINOPHEN 325 MG TAB PO SCH ×4 (04:30→20:33)
[2022-03-05 08:11] LABS: Hematocrit (blood only) 40.9 % (40.1-51.0); Mean Corpuscular Hemoglobin 30.6 pg (25.0-34.0); Mean Corpuscular Hgb Conc 34.2 g/dL (32.0-36.0); Mean Corpuscular Volume 89.3 fL (80.0-100.0); Mean Platelet Volume 11.5 fL (9.4-12.4); Platelet Count 130 K/uL (130-400); RDW Coefficient of Variation 13.2 % (11.5-14.5); RDW Standard Deviation 42.7 fL (36.4-46.3); Red Blood Count 4.58 M/uL (4.63-6.08); White Blood Count 8.81 K/ul (4.8-10.8)
[2022-03-05 08:17] LABS: Basophils # (auto) 0.04 K/uL (0-0.2); Basophils % (auto) 0.5 %; Eosinophils # (auto) 0.07 K/uL (0-0.50); Eosinophils % (auto) 0.8 %; Immature Granulocytes # (auto) 0.04 K/uL (0.00-0.02); Immature Granulocytes % (auto) 0.5 %; Lymphocytes # (auto) 1.72 K/uL (1.2-3.4); Lymphocytes % (auto) 19.5 %; Monocytes # (auto) 1.31 K/uL (0.24-0.82); Monocytes % (auto) 14.9 %; Neutrophils # (auto) 5.63 K/uL (1.4-6.5); Neutrophils % (auto) 63.8 %
--- NOTE | 2022-03-05 08:33 | Urology Progress Note ---
Date of Service March 05, 2022 Assessment & Plan (1) Right kidney mass: Plan: - Patient POD#1 s/p right partial nephrectomy for suspected renal malignancy. - Doing well, progressing as expected - Afebrile overnight, post op lab work reviewed and as expected - creatinine 1.23, WBC 8.81, Hgb 14.0 - Notes some discomfort near incisions, controlled with prn analgesia - Tolerating clear liquid diet - advance to full liquids, d/c IV fluids - Encouraged OOB ambulation - Incisions appropriate - Jolly catheter intact, patent and draining clear yellow urine - Discontinue Jolly catheter this morning, monitor for void - Expected clinical course reviewed, all questions answered - Anticipate discharge to home later today or tomorrow if he continues to progress as expected Admission and Anticipated Discharge Date Admission Date: March 04, 2022 Subjective Patient seen and examined at bedside this morning. He is awake, alert and resting in bed. No acute issues overnight. He reports discomfort near incisions, but improved this morning. He is tolerating clear liquid diet. Reports some gas discomfort yesterday, relieved with simethicone. No nausea or vomiting. No fever or chills. Jolly patent and draining clear yellow urine. Review of Systems Constitutional: as per Subjective / HPI Gastrointestinal: as per Subjective / HPI Genitourinary: + as per Subjective / HPI Physical Exam Constitutional: well developed, well nourished and + obese; no acute distress Respiratory: normal respiratory effort; no respiratory distress and no labored breathing Cardiovascular: Extremities: no pedal edema SCDs in place Gastrointestinal (Abdomen): Inspection/Auscultation: abdomen normal to inspection; abdomen not distended tender near incisions Musculoskeletal: Head/Neck/Chest: normocephalic and head atraumatic Skin: Dressings C/D/I, small amount on sanguinous drainage on dressing covering umbilical incision. Dressings removed to examine. Incisions appear healthy, well approximated with mary. Neurologic: moves all extremities and awake Psychiatric: Orientation: alert and oriented x 3 Genitourinary: Jolly patent and draining clear yellow urine Results & Data ([facility]) Vital Signs (Past 12 Hours) Vital Signs Temp Pulse Resp BP BP Pulse Ox O2 Del Method 03/05/22 07:27 36.9 C 89 18 114/62 92 Nasal Cannula 03/05/22 02:30 36.7 C 93 H 18 130/79 92 Nasal Cannula 03/04/22 21:00 Nasal Cannula 03/04/22 22:30 36.7 C 86 18 132/85 93 Nasal Cannula O2 Flow Rate 03/05/22 07:27 3 03/05/22 02:30 3 03/04/22 21:00 3 03/04/22 22:30 3 PG Care Time/CCT Total # of Minutes Spent Total Time Spent with Patient: Total time spent is greater than 50% in coordination of care (as documented) at patient's floor/unit and/or counseling patient: Coding Level of Care Code None Diagnoses Right kidney mass N28.89
[2022-03-05] MEDS: INSULIN ASPART PER UNIT SC SCH ×4 (08:58→21:33)
[2022-03-05] MEDS: AZELASTINE HCL 0.1% NASAL 200 SPRAYS/27,400 MCG BTL NAE SCH (09:03)
[2022-03-05] MEDS: PRAVASTATIN SOD 10 MG TAB PO SCH (09:04)
[2022-03-05] MEDS: CITALOPRAM 20 MG TAB PO SCH (09:04)
[2022-03-05] MEDS: DOCUSATE SODIUM 100 MG CAP PO SCH ×2 (09:05→20:32)
[2022-03-05] MEDS: HEPARIN SOD 5,000 UNIT/0.5 ML VIAL SQ SCH ×2 (09:05→20:32)
--- NOTE | 2022-03-05 09:59 | Pharmacy Report ---
Glycemic Ortho Sign Off Note - Date of Service March 05, 2022 - Scope Glycemic Pharmacist consulted for glycemic control and to write orders per [facility] inpatient glycemic control protocol. - Objective Accuchecks BSG (last 24hrs):: 03/04/22 03/04/22 03/04/22 10:27 12:50 12:52 Glucose 181 H POC Glucose 157 H POC Glucose (other) 193 H 03/04/22 03/04/22 03/05/22 17:45 20:41 08:18 Glucose POC Glucose 117 H 101 H 114 H POC Glucose (other) - Assessment * Pt is not on any anti-diabetic agents outpatient. A1c indicates pre-diabetes. * Low stress weight based insulin dosing appropriate since patient has minimal risk factors for insulin resistance (i.e. no steroids). - Plan For Inpatient Glycemic Control * Basal insulin * Not needed based on A1c, and minimal risk factors for insulin resistance * Bolus insulin * Utilize low stress weight based NovoLog parameters per scale ACHS * Pharmacy has entered glycemic orders and is signing off of the glycemic consult. We will no longer be making adjustments to inpatient regimen. Please feel free to re-consult if needed. Thank you.
[2022-03-05 10:06] LABS: BUN Creatinine Ratio 13.8 (10-20); Calcium 8.1 mg/dl (8.5-10.1); Creatinine Clr Calc Pharmacy 98.1 ml/min; Est GFR (African American) 77.2 ml/min; Est GFR (Non-African American) 66.6 ml/min; Potassium 4.1 mmol/L (3.5-5.1)
--- NOTE | 2022-03-05 10:12 | XRay Report ---
XR chest 1V portable HISTORY: hypoxia COMPARISON: Chest CT 02/19/2022. FINDINGS: There are low lung volumes. No pneumothorax. No pleural fusions. The cardiac silhouette is mildly enlarged. There are infiltrative within the right upper quadrant. Scattered linear densities w ithin the mid to lower lung zones are noted. This favors subsegmental atelectasis or scarring. Otherw ise, no new focal lung consolidations to suggest a pneumonia. No evidence for pulmonary edema. IMPRESSION: 1. Low lung volumes. 2. Mild cardiomegaly. 3. Scattered linear densities within the mid to lower lung zones favor subsegmental atelectasis or sc arring. ACT 112: Negative or not required by law. Electronically signed by: Chandrakant Yen M.D. 03/05/2022 10:10 AM
[2022-03-05] MEDS ORDERED: SIMETHICONE 80 MG CHEW PO ONE (13:09)
[2022-03-05] MEDS: oxyCODONE HCL IR 5 MG TAB (IMMEDIATE RELEASE) PO PRN (13:17)
[2022-03-05] MEDS: MoRPHine SULFATE 4 MG/ML 1 ML CARP\\VIAL IV PRN (14:36)
[2022-03-05] MEDS: LIDOCAINE 5% 1 PATCH TD SCH (15:32)
--- NOTE | 2022-03-05 15:38 | Hospitalist Progress Note ---
Date of Service March 05, 2022 Assessment & Plan (1) Right kidney mass: Plan: Postoperative day #1. Surgery management. Pathology report pending. Surgical site is unremarkable. (2) Umbilical hernia without obstruction and without gangrene: Plan: Postoperative day #1. Stable. Surgery management (3) WILLIAM (acute kidney injury): Plan: Improved with IV fluids. Monitor intake and output. Serial labs (4) Migraine: Plan: continue rizatriptan as needed for migraine headaches. Topiramate HS for prevention. (5) Anxiety: Plan: Treated with citalopram. (6) Dyslipidemia: Plan: Treated with pravastatin. (7) GERD without esophagitis: Plan: History of gastritis with ulcers February 2021. Had [place] EGD [place], gastritis, normal duodenal bulb and duodenum. Continue Protonix therapy (8) Prediabetes: Plan: Most recent A1c 6.3%, diet controlled. Pharmacy consulted by primary team for glycemic management. SSI ordered (9) Tachycardia: Plan: Treated with metoprolol 25 mg HS. (10) Thoracic aortic aneurysm, without rupture: Plan: Stable. No intervention necessary at this time (11) Pulmonary atelectasis: Plan: Postoperatively producing mild hypoxia. Incentive spirometry ordered. Ambulation will help. Oxygen per nasal cannula as needed to maintain saturation greater than 90%. Wean off as tolerated Plan Anticipate eventual discharge to home per primary service. Admission and Anticipated Discharge Date Admission Date: March 04, 2022 Subjective Alert and oriented. We discussed pulmonary atelectasis and the need for incentive spirometry. Postoperative day 1 after partial right nephrectomy and umbilical hernia repair. Potassium improved to 4.1. Hemoglobin stable at 14. Creatinine improved to 1.2. Review of Systems Review of Systems: Constitutional-no fever or chills ENT-no blurred vision, no double vision, no epistaxis, no sore throat Respiratory-no cough, no wheezing, no shortness of breath Cardiac-no palpitations, no chest pain, no syncope GI-no nausea, vomiting, diarrhea, melena, hematochezia -no urinary retention, no urinary incontinence, no dysuria, no hematuria Musculoskeletal-no joint pain, no muscle tenderness Skin-no bruising, no rashes, no pruritus Neuro-no isolated weakness, no paresthesia, no weakness Psych-no depression, no anxiety Physical Exam Physical Exam: General-alert and oriented x3, no fevers, no chills HEENT-head atraumatic and normocephalic, pupils equal and reactive to light, extraocular muscles intact Neck-no lymphadenopathy or thyromegaly, trachea midline Chest-clear to auscultation percussion. Shallow inspiratory state. No rales, wheezing or rhonchi Cardiac-regular rate and rhythm, normal S1 and S2 Abdomen-normal bowel sounds, nontender, no hepatosplenomegaly. Surgical site intact Extremities-no cyanosis, clubbing, or edema Neuro-cranial nerves II through XII intact, motor and sensory function within normal limits, strength symmetrical , no focal deficits Psych-normal affect, normal mood Results & Data Results & Data ([facility]) Vital Signs (Past 12 Hours) Vital Signs Temp Pulse Resp BP Pulse Ox O2 Del Method O2 Flow Rate 03/05/22 10:28 Room Air 03/05/22 07:27 36.9 C 89 18 114/62 92 Nasal Cannula 3 Laboratory Results 03/05/22 07:09 03/05/22 07:09 PG Care Time/CCT Total # of Minutes Spent Total Time Spent with Patient: Total time spent is greater than 50% in coordination of care (as documented) at patient's floor/unit and/or counseling patient: Coding Level of Care Code 97632 SUB INP/OBS CARE 3/50MIN Diagnoses Right kidney mass N28.89 Umbilical hernia without obstruction and without gangrene K42.9 WILLIAM (acute kidney injury) N17.9 Migraine G43.909 Anxiety F41.9 Dyslipidemia E78.5 GERD without esophagitis K21.9 Prediabetes R73.03 Tachycardia R00.0 Thoracic aortic aneurysm, without rupture I71.2 Pulmonary atelectasis J98.11
[2022-03-05] MEDS: TOPIRAMATE 50 MG TAB PO SCH (20:32)
[2022-03-05] MEDS: METOPROLOL SUCC 25MG EXT REL TAB PO SCH (20:33)
[2022-03-05] MEDS ORDERED: SIMETHICONE 80 MG CHEW PO PRN (22:02)
[2022-03-06] MEDS: oxyCODONE HCL IR 5 MG TAB (IMMEDIATE RELEASE) PO PRN ×3 (00:11→21:56)
[2022-03-06] MEDS: ACETAMINOPHEN 325 MG TAB PO SCH ×4 (04:19→21:48)
[2022-03-06 08:16] LABS: Basophils # (auto) 0.03 K/uL (0-0.2); Basophils % (auto) 0.2 %; Eosinophils # (auto) 0.02 K/uL (0-0.50); Eosinophils % (auto) 0.2 %; Hemoglobin 13.9 g/dl (14.0-18.0); Immature Granulocytes # (auto) 0.06 K/uL (0.00-0.02); Immature Granulocytes % (auto) 0.5 %; Lymphocytes # (auto) 1.14 K/uL (1.2-3.4); Mean Corpuscular Hemoglobin 30.5 pg (25.0-34.0); Mean Corpuscular Hgb Conc 33.9 g/dL (32.0-36.0); Mean Corpuscular Volume 90.1 fL (80.0-100.0); Mean Platelet Volume 11.1 fL (9.4-12.4); Monocytes # (auto) 1.44 K/uL (0.24-0.82); Monocytes % (auto) 11.4 %; Neutrophils # (auto) 9.93 K/uL (1.4-6.5); Neutrophils % (auto) 78.7 %; Platelet Count 124 K/uL (130-400); RBC Morphology Unremarkable; RDW Coefficient of Variation 12.8 % (11.5-14.5); RDW Standard Deviation 42.2 fL (36.4-46.3); Red Blood Count 4.55 M/uL (4.63-6.08); White Blood Count 12.62 K/ul (4.8-10.8)
[2022-03-06 08:34] LABS: Calcium 8.5 mg/dl (8.5-10.1)
[2022-03-06 08:39] LABS: BUN Creatinine Ratio 14.9 (10-20); Creatinine Clr Calc Pharmacy 105.8 ml/min; Est GFR (African American) 84.6 ml/min
[2022-03-06] MEDS: INSULIN ASPART PER UNIT SC SCH ×4 (09:01→21:48)
[2022-03-06] MEDS: PRAVASTATIN SOD 10 MG TAB PO SCH (09:02)
[2022-03-06] MEDS: LIDOCAINE 5% 1 PATCH TD SCH (09:02)
[2022-03-06] MEDS: AZELASTINE HCL 0.1% NASAL 200 SPRAYS/27,400 MCG BTL NAE SCH (09:02)
[2022-03-06] MEDS: CITALOPRAM 20 MG TAB PO SCH (09:03)
[2022-03-06] MEDS: DOCUSATE SODIUM 100 MG CAP PO SCH ×2 (09:03→21:48)
[2022-03-06] MEDS: HEPARIN SOD 5,000 UNIT/0.5 ML VIAL SQ SCH ×2 (09:03→21:47)
--- NOTE | 2022-03-06 09:57 | Urology Progress Note ---
Date of Service March 06, 2022 Assessment & Plan (1) Right kidney mass: Plan: Postop day #2 status post right partial nephrectomy Ambulate this morning Likely discharge home tomorrow unless he really progresses throughout the course of the day today Admission and Anticipated Discharge Date Admission Date: March 04, 2022 Subjective Much improved today Still with some minor gas pain but reports that his abdominal discomfort is 1/10 of what it was yesterday Ambulating Tolerating diet Still on oxygen3 L at present Labs all stable Physical Exam Physical Exam: Incisions appropriate Abdomen soft, nontender Results & Data ([facility]) Vital Signs (Past 12 Hours) Vital Signs Temp Pulse Pulse Resp BP Pulse Ox O2 Del Method 03/06/22 07:55 37.7 C H 92 H 18 137/81 92 Nasal Cannula 03/06/22 04:00 37 C 92 H 18 136/88 92 Nasal Cannula O2 Flow Rate 03/06/22 07:55 3 03/06/22 04:00 5 PG Care Time/CCT Total # of Minutes Spent Total Time Spent with Patient: Total time spent is greater than 50% in coordination of care (as documented) at patient's floor/unit and/or counseling patient: Coding Level of Care Code None Diagnoses Right kidney mass N28.89
--- NOTE | 2022-03-06 14:48 | Hospitalist Progress Note ---
Date of Service March 06, 2022 Assessment & Plan (1) Right kidney mass: Plan: Postoperative day #2. Surgery management. Pathology report pending. Surgical site is unremarkable. (2) Umbilical hernia without obstruction and without gangrene: Plan: Postoperative day #2. Stable. Surgery management (3) WILLIAM (acute kidney injury): Plan: Resolved with IV fluids. Monitor intake and output. Serial labs (4) Migraine: Plan: continue rizatriptan as needed for migraine headaches. Topiramate HS for prevention. (5) Anxiety: Plan: Treated with citalopram. (6) Dyslipidemia: Plan: Treated with pravastatin. (7) GERD without esophagitis: Plan: History of gastritis with ulcers February 2021. Had a follow-up EGD in Maynormal esophagus, gastritis, normal duodenal bulb and duodenum. Continue Protonix therapy (8) Prediabetes: Plan: Most recent A1c 6.3%, diet controlled. Pharmacy consulted by primary team for glycemic management. SSI ordered (9) Tachycardia: Plan: Treated with metoprolol 25 mg HS. (10) Thoracic aortic aneurysm, without rupture: Plan: Stable. No intervention necessary at this time (11) Pulmonary atelectasis: Plan: Postoperatively producing mild hypoxia. Incentive spirometry ordered. Ambulation will help. Oxygen per nasal cannula as needed to maintain saturation greater than 90%. Wean off as tolerated Plan Anticipate eventual discharge to home per primary service. Admission and Anticipated Discharge Date Admission Date: March 04, 2022 Subjective No new problems. He states he is using his incentive spirometer as directed. He continues to need supplemental oxygen however. Overall he is stable. Creatinine has trended down to 1.1. Potassium has normalized to 4.0. Postoperative day #2. Pathology report is pending. Review of Systems Review of Systems: Constitutional-no fever or chills ENT-no blurred vision, no double vision, no epistaxis, no sore throat Respiratory-no cough, no wheezing, no shortness of breath Cardiac-no palpitations, no chest pain, no syncope GI-no nausea, vomiting, diarrhea, melena, hematochezia -no urinary retention, no urinary incontinence, no dysuria, no hematuria Musculoskeletal-no joint pain, no muscle tenderness Skin-no bruising, no rashes, no pruritus Neuro-no isolated weakness, no paresthesia, no weakness Psych-no depression, no anxiety Physical Exam Physical Exam: General-alert and oriented x3, no fevers, no chills HEENT-head atraumatic and normocephalic, pupils equal and reactive to light, extraocular muscles intact Neck-no lymphadenopathy or thyromegaly, trachea midline Chest-clear to auscultation percussion. Shallow inspiratory state. No rales, wheezing or rhonchi Cardiac-regular rate and rhythm, normal S1 and S2 Abdomen-normal bowel sounds, nontender, no hepatosplenomegaly. Surgical site intact Extremities-no cyanosis, clubbing, or edema Neuro-cranial nerves II through XII intact, motor and sensory function within normal limits, strength symmetrical , no focal deficits Psych-normal affect, normal mood Results & Data Results & Data ([facility]) Vital Signs (Past 12 Hours) Vital Signs Temp Pulse Pulse Resp BP Pulse Ox O2 Del Method 03/06/22 07:55 37.7 C H 92 H 18 137/81 92 Nasal Cannula 03/06/22 04:00 37 C 92 H 18 136/88 92 Nasal Cannula O2 Flow Rate 03/06/22 07:55 3 03/06/22 04:00 5 Laboratory Results 03/06/22 07:14 03/06/22 07:14 PG Care Time/CCT Total # of Minutes Spent Total Time Spent with Patient: Total time spent is greater than 50% in coordination of care (as documented) at patient's floor/unit and/or counseling patient: Coding Level of Care Code 62934 SUB INP/OBS CARE 3/50MIN Diagnoses Right kidney mass N28.89 Umbilical hernia without obstruction and without gangrene K42.9 WILLIAM (acute kidney injury) N17.9 Migraine G43.909 Anxiety F41.9 Dyslipidemia E78.5 GERD without esophagitis K21.9 Prediabetes R73.03 Tachycardia R00.0 Thoracic aortic aneurysm, without rupture I71.2 Pulmonary atelectasis J98.11
[2022-03-06] MEDS: TOPIRAMATE 50 MG TAB PO SCH (21:47)
[2022-03-06] MEDS: METOPROLOL SUCC 25MG EXT REL TAB PO SCH (21:49)
[2022-03-07] MEDS: ACETAMINOPHEN 325 MG TAB PO SCH ×2 (03:44→07:45)
[2022-03-07 07:16] LABS: Basophils # (auto) 0.05 K/uL (0-0.2); Basophils % (auto) 0.4 %; Echinocytes 1+; Eosinophils # (auto) 0.11 K/uL (0-0.50); Eosinophils % (auto) 0.9 %; Hematocrit (blood only) 38.9 % (40.1-51.0); Hemoglobin 13.4 g/dl (14.0-18.0); Immature Granulocytes # (auto) 0.07 K/uL (0.00-0.02); Immature Granulocytes % (auto) 0.6 %; Lymphocytes # (auto) 1.54 K/uL (1.2-3.4); Lymphocytes % (auto) 13.2 %; Mean Corpuscular Hemoglobin 30.7 pg (25.0-34.0); Mean Corpuscular Hgb Conc 34.4 g/dL (32.0-36.0); Mean Platelet Volume 11.6 fL (9.4-12.4); Monocytes # (auto) 1.53 K/uL (0.24-0.82); Monocytes % (auto) 13.1 %; Neutrophils # (auto) 8.37 K/uL (1.4-6.5); Neutrophils % (auto) 71.8 %; Platelet Count 113 K/uL (130-400); RDW Coefficient of Variation 12.6 % (11.5-14.5); RDW Standard Deviation 41.3 fL (36.4-46.3); Red Blood Count 4.37 M/uL (4.63-6.08); White Blood Count 11.67 K/ul (4.8-10.8)
[2022-03-07] MEDS: LIDOCAINE 5% 1 PATCH TD SCH (07:40)
[2022-03-07] MEDS: oxyCODONE HCL IR 5 MG TAB (IMMEDIATE RELEASE) PO PRN (07:44)
[2022-03-07] MEDS: AZELASTINE HCL 0.1% NASAL 200 SPRAYS/27,400 MCG BTL NAE SCH (07:45)
[2022-03-07] MEDS: HEPARIN SOD 5,000 UNIT/0.5 ML VIAL SQ SCH (07:45)
[2022-03-07] MEDS: PRAVASTATIN SOD 10 MG TAB PO SCH (07:45)
[2022-03-07] MEDS: DOCUSATE SODIUM 100 MG CAP PO SCH (07:45)
[2022-03-07] MEDS: CITALOPRAM 20 MG TAB PO SCH (07:45)
[2022-03-07 07:51] LABS: Calcium 8.4 mg/dl (8.5-10.1)
[2022-03-07 07:57] LABS: BUN Creatinine Ratio 14.4 (10-20); Creatinine Clr Calc Pharmacy 102.2 ml/min; Est GFR (African American) 81.2 ml/min
[2022-03-07] MEDS: INSULIN ASPART PER UNIT SC SCH (08:30)
--- NOTE | 2022-03-07 08:49 | Urology Progress Note ---
Date of Service March 07, 2022 Assessment & Plan (1) Right kidney mass: Plan Status post partial nephrectomy and umbilical hernia repair Plan for discharge home now Admission and Anticipated Discharge Date Admission Date: March 04, 2022 Subjective Continues to progress Feels much better Very anxious to go home today He is off oxygen supplementation at present and is maintaining saturations above 92% Is ambulatory Still has some gas pain but was passing flatus yesterday and is no more distended today than he was in the past Physical Exam Constitutional: well developed and well nourished Respiratory: no respiratory distress Cardiovascular: Extremities: no pedal edema Gastrointestinal (Abdomen): Inspection/Auscultation: abdomen normal to inspection Results & Data ([facility]) Vital Signs (Past 12 Hours) Vital Signs Temp Pulse Pulse Resp BP Pulse Ox O2 Del Method 03/07/22 07:30 Nasal Cannula 03/07/22 07:05 36.7 C 87 20 107/67 95 Nasal Cannula 03/06/22 21:50 37.2 C 111 H 18 135/80 92 Nasal Cannula 03/06/22 21:02 Nasal Cannula O2 Flow Rate 03/07/22 07:30 2 03/07/22 07:05 3 03/06/22 21:50 4 03/06/22 21:02 2 PG Care Time/CCT Total # of Minutes Spent Total Time Spent with Patient: Total time spent is greater than 50% in coordination of care (as documented) at patient's floor/unit and/or counseling patient: Coding Level of Care Code 60727 SUB INP/OBS CARE 2/35MIN Diagnoses Right kidney mass N28.89
--- NOTE | 2022-03-07 10:19 | Hospitalist Progress Note ---
Date of Service March 07, 2022 Assessment & Plan (1) Right kidney mass: Plan: Postoperative day #3. Surgery management. Pathology report pending. Surgical site is unremarkable. (2) Umbilical hernia without obstruction and without gangrene: Plan: Postoperative day #3. Stable. Surgery management (3) WILLIAM (acute kidney injury): Plan: Resolved with IV fluids. Monitor intake and output. Serial labs (4) Migraine: Plan: continue rizatriptan as needed for migraine headaches. Topiramate HS for prevention. (5) Anxiety: Plan: Treated with citalopram. (6) Dyslipidemia: Plan: Treated with pravastatin. (7) GERD without esophagitis: Plan: History of gastritis with ulcers February 2021. Had a follow-up EGD in Maynormal esophagus, gastritis, normal duodenal bulb and duodenum. Continue Protonix therapy (8) Prediabetes: Plan: Most recent A1c 6.3%, diet controlled. Pharmacy consulted by primary team for glycemic management. SSI ordered (9) Tachycardia: Plan: Treated with metoprolol 25 mg HS. (10) Thoracic aortic aneurysm, without rupture: Plan: Stable. No intervention necessary at this time (11) Pulmonary atelectasis: Plan: Postoperatively producing mild hypoxia. Incentive spirometry has helped. Ambulation will help. Oxygen has been weaned off. Plan discharge to home per primary service today, March 07. He is medically stable. Admission and Anticipated Discharge Date Admission Date: March 04, 2022 Subjective Alert. He is now on room air. Primary service will be discharging him later today. No new problems Review of Systems Review of Systems: Constitutional-no fever or chills ENT-no blurred vision, no double vision, no epistaxis, no sore throat Respiratory-no cough, no wheezing, no shortness of breath Cardiac-no palpitations, no chest pain, no syncope GI-no nausea, vomiting, diarrhea, melena, hematochezia -no urinary retention, no urinary incontinence, no dysuria, no hematuria Musculoskeletal-no joint pain, no muscle tenderness Skin-no bruising, no rashes, no pruritus Neuro-no isolated weakness, no paresthesia, no weakness Psych-no depression, no anxiety Physical Exam Physical Exam: General-alert and oriented x3, no fevers, no chills HEENT-head atraumatic and normocephalic, pupils equal and reactive to light, extraocular muscles intact Neck-no lymphadenopathy or thyromegaly, trachea midline Chest-clear to auscultation percussion. Shallow inspiratory state. No rales, wheezing or rhonchi Cardiac-regular rate and rhythm, normal S1 and S2 Abdomen-normal bowel sounds, nontender, no hepatosplenomegaly. Surgical site intact Extremities-no cyanosis, clubbing, or edema Neuro-cranial nerves II through XII intact, motor and sensory function within normal limits, strength symmetrical , no focal deficits Psych-normal affect, normal mood Results & Data Results & Data ([facility]) Vital Signs (Past 12 Hours) Vital Signs Temp Pulse Resp BP Pulse Ox O2 Del Method O2 Flow Rate 03/07/22 07:30 Nasal Cannula 2 03/07/22 07:05 36.7 C 87 20 107/67 95 Nasal Cannula 3 Laboratory Results 03/07/22 06:08 03/07/22 06:08 PG Care Time/CCT Total # of Minutes Spent Total Time Spent with Patient: Total time spent is greater than 50% in coordination of care (as documented) at patient's floor/unit and/or counseling patient: Coding Level of Care Code 95488 SUB INP/OBS CARE 3/50MIN Diagnoses Right kidney mass N28.89 Umbilical hernia without obstruction and without gangrene K42.9 WILLIAM (acute kidney injury) N17.9 Migraine G43.909 Anxiety F41.9 Dyslipidemia E78.5 GERD without esophagitis K21.9 Prediabetes R73.03 Tachycardia R00.0 Thoracic aortic aneurysm, without rupture I71.2 Pulmonary atelectasis J98.11
--- NOTE | 2022-03-11 12:10 | Discharge Summary ---
Date of Service March 11, 2022 Admission HPI Per Admitting Provider See H&P Admission Exam Per Admitting Provider See H&P Principal Diagnosis Renal Mass suspicious for malignancy. Discharge Exam General: Alert in no acute distress. HEENT: Normocephalic Atraumatic. Inspection normal. Psychologic: Normal affect. Skin: [place] and Dry. No rashes or visible lesions. Abdomen: Soft Non-distended. No rebound or guarding. Discharge Data Allergies Allergy/AdvReac Type Severity Reaction Status Date / Time amoxicillin AdvReac Unknown GI SYMPTOMS Verified 03/04/22 06:32 clavulanic acid AdvReac Unknown GI SYMPTOMS Verified 03/04/22 06:32 prednisone AdvReac Unknown hyperactivi Verified 03/04/22 06:32 ty Consultations 03/04/22 14:04 Consult Hospitalist Routine Procedures Performed Operation Date: 03/04/22 07:30 Actual Procedures p Robotic Assisted Laparoscopic Right Partial Nephrectomy, (Right) - Van Prieto DO s Incarcerated umbilical hernia repair (Not Applicable) - Van Prieto DO Hospital Course (1) Right kidney mass: Plan Status post partial nephrectomy and umbilical hernia repair Plan for discharge home now Total Time Total Time Spent Total Time Spent (In Minutes): 10 minutes Total Time Includes: Examination of the Patient, Discharge Planning, Medication Reconciliation and Communication With Other Providers Discharge Plan Discharge Items Patient Disposition: Home - Self-Care Reason For Visit: RENAL MASS Discharge Diagnosis: Renal Mass Activity: Per Instructions section Lifting: No more than 10 pounds Bathing Comment: Okay to shower after discharge, no tub bath or soaking Sexual Activity: Wait until after follow-up appointment Exercise/Sports: Wait until after follow-up appointment Driving/Machine Use: No driving while taking prescription pain medication Non-emergency contact: Surgeon and Urologist Call non-emergency contact if: your symptoms worsen, your pain is not controlled, you have a fever, your temperature is above 101, your wound has increased redness, your wound has increased drainage and your wound pain has increased Follow-up/Referrals: Tanner Ray MD [Hospitalist] - Diet: Carb Consistent or DM2 Addtl Attending Provider Instructions: Please take all medications as prescribed and keep all follow-ups as scheduled. Please call our office at [phone] with any questions, concerns or need to reschedule appointments for any reason. We are happy to assist you. Recovering at home: We recommend having someone with you for the first few days after surgery to help care for you. It is okay to shower tomorrow. Please avoid swimming, bathing or using hot tub until incisions are well healed. Avoid driving until you are not requiring pain medication any further. Walk at least a few times a day. Increase your distance, as you feel able. Stairs in your home are okay. Please avoid strenuous or sexual activity until your follow-up. We recommend using stool softener (i.e. Colace) to prevent constipation and straining, especially the first two weeks post operatively. Call [facility] at [phone] if you experience: Chest pain or trouble breathing (call [phone] or go to the hospital). Fever of 101F or higher Symptoms of infection at incision site, including redness or swelling, warmth, or bad-smelling drainage If you have catheter, and you notice: o Bloody urine or drainage that is dark red or has large clots (Please remember a small amount of blood is normal) o No drainage from the catheter for more than 6 hours o The catheter comes out of your bladder Pain that is not controlled with medicines Pending Studies at Discharge: Yes (pathology) Stand-Alone Forms: [facility] Swivel, Smoking Cessation Medications and DC Order Prescriptions: New oxycodone-acetaminophen [Percocet] 5-325 mg tablet 1 tab PO TID PRN (Reason: pain) Qty: 10 0RF Rx Instructions: post operative pain docusate sodium [Colace] 100 mg capsule 100 mg PO BID Qty: 60 0RF Rx Instructions: Take twice daily for 2 weeks, then as needed for constipation. Continued rizatriptan 5 mg tablet 5 mg PO UD PRN (Reason: Headache) Label Comments: NEVER HAD TO TAKE IT Rx Instructions: take 1 tablet at onset of headache; if no relief, may repeat 1 tablet after at least 2 hrs PO PRN; (DME) lancets [OneTouch Delica Plus Lancet] [facility] See Rx Instructions .Route Qty: 100 3RF Rx Instructions: use to test once daily (DME) blood-glucose meter [OneTouch Verio Flex meter] Misc See Rx Instructions .Route Qty: 1 0RF Rx Instructions: use to test once daily (DME) OneTouch Verio test strips Strip See Rx Instructions .Route Qty: 100 3RF Rx Instructions: use to test once daily pravastatin 10 mg tablet 10 mg PO QAM Qty: 90 3RF citalopram 20 mg tablet 20 mg PO QAM aspirin 325 mg tablet 325 mg PO QAM Label Comments: THE LAST DOSE I SHOULD TAKE IS TUESDAY (02/26) cetirizine [Zyrtec] 10 mg tablet 10 mg PO QAM PRN (Reason: allergy symptoms) Label Comments: HAVEN'T BEEN TAKING IT metoprolol succinate 25 mg tablet extended release 24 hr 25 mg PO QPM azelastine 137 mcg (0.1 %) aerosol,spray 2 spray intranasal QAM Rx Instructions: administer into each nostril topiramate 50 mg tablet 50 mg PO HS Rx Instructions: TAKE ONE TABLET BY MOUTH AT BEDTIME Discharge Orders: Discharge Order (Routine); Ordered 03/07/22 Ordered By: Enrico Hawthorne Admission Data Admit Date/Time: 03/04/22 12:42 Attending Provider: Van Prieto Admit Provider: Van Prieto Primary Care Provider: Santo Orozco Other Providers: Trenton Mauricio ; Sil Mazariegos ; Fco Schmitt ; Tanner Ray ; Quintin Contreras ; Juan David Canela ; Raj Rangel ; Antonina Be ; Niecy Flynn ; Leonel Christiansen ; Farzad Jackson ; Robina Ji ; Tim Brennan ; Braulio Orr ; Nancie Wilson ; Lenore David ; Marva Schuster ; Jose Hewitt ; Brandon Garrett ; Debora Milton ; Sil De León ; Lei Morales ; Kuldip Ferrara ; Fco Pemberton ; Carmel Rosenberg ; Jackson Cunha ; Moisés Ocasio ; Tamara Ceja ; Fred England ; Christie Murray ; Kimani Castrejon ; Renee Talbot ; Rajeev Osorio ; Kendall Cohen ; Clay Kyle ; Andrea Morales ; Tammy Fairbanks Other Interventions: Discharge Summary Assessment (RN) Last Done: 03/07/22 10:38 Coding Level of Care Code HOSP INP/OBS DISCH 30 MIN/LESS Diagnoses Right kidney mass N28.89
--- NOTE | 2022-03-12 12:09 | Coding Query ---
PATHOLOGY To promote full compliance with coding requirements relating to patient care, physician participation is requested in all cases of health records technology teacher uncertainty. Please assist us with the question(s) below: Please review the Pathology report and please document any relevant diagnosis(es) below: Diagnosis(es): Kidney cancer Thank you Celia ROJAS
== END 2022-03-07 11:48 | disposition home or self-care (01) | DRG 657 ==
LOC: ASU 05:35 → SUPCPDRO 12:42 → 3N 12:42

== ENCOUNTER 2024-05-31 16:19 | Inpatient (IN) ==
[2024-05-31] MEDS: OPTIRAY 320 125ml IV ONE (16:39)
[2024-05-31 16:57] LABS: Basophils # (auto) 0.06 K/uL (0.00-0.20); Basophils % (auto) 0.7 %; Eosinophils # (auto) 0.19 K/uL (0.00-0.50); Eosinophils % (auto) 2.1 %; Hematocrit (blood only) 46.2 % (42.0-52.0); Immature Granulocytes # (auto) 0.03 K/uL (0.01-0.20); Immature Granulocytes % (auto) 0.3 %; Lymphocytes # (auto) 2.47 K/uL (1.20-3.40); Lymphocytes % (auto) 26.9 %; Mean Corpuscular Hemoglobin 31.4 pg (25.0-34.0); Mean Corpuscular Hgb Conc 34.6 g/dL (32.0-36.0); Mean Corpuscular Volume 90.6 fL (80.0-100.0); Mean Platelet Volume 10.7 fL (9.4-12.4); Monocytes % (auto) 9.8 %; Neutrophils # (auto) 5.53 K/uL (1.40-6.50); Neutrophils % (auto) 60.2 %; Platelet Count 153 K/uL (130-400); RDW Coefficient of Variation 12.3 % (11.5-14.5); RDW Standard Deviation 41.3 fL (36.4-46.3); White Blood Count 9.18 K/ul (4.8-10.8)
--- NOTE | 2024-05-31 17:01 | CT Scan Report ---
Head CT without contrast CT angiogram of the neck CT angiogram of the brain with contrast Provided History: Neuro deficit Comparison: None Technique: HEAD CT: Using multidetector thin collimation helical acquisition technique, axial, coronal and sagittal CT images from the skull base to the vertex were obtained without intravenous contrast. HEAD and NECK CTA: During rapid bolus intravenous injection of nonionic contrast material, axial images were obtained using thin collimation multidetector helical technique from the base of the neck through the of vertex of the head. This CT angiogram data was reconstructed at thin intervals with mild overlap. 3D reconstructions were obtained. The axial source images, multiplanar reformations, 3D reconstructions in both maximum intensity projection display and volume rendered models were reviewed. Dose reduction techniques were achieved by using automatic exposure control and/or adjustment of mA and/or kV according to patient size and/or use of iterative reconstruction technique. Findings: Head CT: There is no intracranial hemorrhage, mass effect, or midline shift. There is loss of the ching/white matter differentiation involving a small to moderate portion of the medial and anterior right occipital lobe, series 2 image 15. This area is associated with low attenuation. Ventricles are proportionate to the cerebral sulci. Head CTA demonstrates no aneurysm. There is a short segment of occlusion appreciated of the right posterior cerebral artery as seen on series 6 image 138, which immediately reconstitutes, spanning a length of approximately 5 mm, and at the P4 segment. Remaining arteries of the [place] are patent. Neck CTA demonstrates no stenosis of the major cervical arteries. The origins of the great vessels from the aortic arch are patent. No mass is noted within the visualized portions of the cervical soft tissues or lung apices. Impression: 1. Head CTA demonstrates a short segment of loss of flow involving the distal right CLIP ON SUNGLASSES ASSEMBLER at the P4 segment, which immediately reconstitutes. Remaining arteries of the [place] are patent. 2. Neck CTA demonstrates no stenosis of the major cervical arteries. No visualized unstable plaque or findings of an embolic source. 3. 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 4. There is a left thyroid gland 2 cm nodule. Recommend nonemergent thyroid ultrasound. Findings discussed with Dr. Zimmerman by Dr. Thorpe at 4:55 PM, 05/31/2024 Electronically signed by Enrico Thorpe 05-31-2024 5:00 PM
--- NOTE | 2024-05-31 17:01 | CT Scan Report ---
Head CT without contrast CT angiogram of the neck CT angiogram of the brain with contrast Provided History: Neuro deficit Comparison: None Technique: HEAD CT: Using multidetector thin collimation helical acquisition technique, axial, coronal and sagittal CT images from the skull base to the vertex were obtained without intravenous contrast. HEAD and NECK CTA: During rapid bolus intravenous injection of nonionic contrast material, axial images were obtained using thin collimation multidetector helical technique from the base of the neck through the of vertex of the head. This CT angiogram data was reconstructed at thin intervals with mild overlap. 3D reconstructions were obtained. The axial source images, multiplanar reformations, 3D reconstructions in both maximum intensity projection display and volume rendered models were reviewed. Dose reduction techniques were achieved by using automatic exposure control and/or adjustment of mA and/or kV according to patient size and/or use of iterative reconstruction technique. Findings: Head CT: There is no intracranial hemorrhage, mass effect, or midline shift. There is loss of the ching/white matter differentiation involving a small to moderate portion of the medial and anterior right occipital lobe, series 2 image 15. This area is associated with low attenuation. Ventricles are proportionate to the cerebral sulci. Head CTA demonstrates no aneurysm. There is a short segment of occlusion appreciated of the right posterior cerebral artery as seen on series 6 image 138, which immediately reconstitutes, spanning a length of approximately 5 mm, and at the P4 segment. Remaining arteries of the [place] are patent. Neck CTA demonstrates no stenosis of the major cervical arteries. The origins of the great vessels from the aortic arch are patent. No mass is noted within the visualized portions of the cervical soft tissues or lung apices. Impression: 1. Head CTA demonstrates a short segment of loss of flow involving the distal right MANUFACTURING DESIGN ENGINEER at the P4 segment, which immediately reconstitutes. Remaining arteries of the [place] are patent. 2. Neck CTA demonstrates no stenosis of the major cervical arteries. No visualized unstable plaque or findings of an embolic source. 3. 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 4. There is a left thyroid gland 2 cm nodule. Recommend nonemergent thyroid ultrasound. Findings discussed with Dr. Zimmerman by Dr. Thorpe at 4:55 PM, 05/31/2024 Electronically signed by Enrico Thorpe 05-31-2024 5:00 PM
--- NOTE | 2024-05-31 17:01 | CT Scan Report ---
Head CT without contrast CT angiogram of the neck CT angiogram of the brain with contrast Provided History: Neuro deficit Comparison: None Technique: HEAD CT: Using multidetector thin collimation helical acquisition technique, axial, coronal and sagittal CT images from the skull base to the vertex were obtained without intravenous contrast. HEAD and NECK CTA: During rapid bolus intravenous injection of nonionic contrast material, axial images were obtained using thin collimation multidetector helical technique from the base of the neck through the of vertex of the head. This CT angiogram data was reconstructed at thin intervals with mild overlap. 3D reconstructions were obtained. The axial source images, multiplanar reformations, 3D reconstructions in both maximum intensity projection display and volume rendered models were reviewed. Dose reduction techniques were achieved by using automatic exposure control and/or adjustment of mA and/or kV according to patient size and/or use of iterative reconstruction technique. Findings: Head CT: There is no intracranial hemorrhage, mass effect, or midline shift. There is loss of the ching/white matter differentiation involving a small to moderate portion of the medial and anterior right occipital lobe, series 2 image 15. This area is associated with low attenuation. Ventricles are proportionate to the cerebral sulci. Head CTA demonstrates no aneurysm. There is a short segment of occlusion appreciated of the right posterior cerebral artery as seen on series 6 image 138, which immediately reconstitutes, spanning a length of approximately 5 mm, and at the P4 segment. Remaining arteries of the [place] are patent. Neck CTA demonstrates no stenosis of the major cervical arteries. The origins of the great vessels from the aortic arch are patent. No mass is noted within the visualized portions of the cervical soft tissues or lung apices. Impression: 1. Head CTA demonstrates a short segment of loss of flow involving the distal right CHISELER HEAD at the P4 segment, which immediately reconstitutes. Remaining arteries of the [place] are patent. 2. Neck CTA demonstrates no stenosis of the major cervical arteries. No visualized unstable plaque or findings of an embolic source. 3. 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 4. There is a left thyroid gland 2 cm nodule. Recommend nonemergent thyroid ultrasound. Findings discussed with Dr. Zimmerman by Dr. Thorpe at 4:55 PM, 05/31/2024 Electronically signed by Enrico Thorpe 05-31-2024 5:00 PM
--- NOTE | 2024-05-31 17:08 | Emergency Department Note ---
Impression & Plan Acute ischemic right IT SUPPORT TECHNICIAN stroke, Loss of peripheral visual field ED Provider Note NAME: OVIDIO CHASE AGE: 53 SEX: M : 1970 ARRIVES VIA: Walk-In INFORMANT: Patient, ED PROVIDER(S): Remy Zimmerman DO CHIEF COMPLAINT: Strokelike symptoms HPI: The patient is a 53-year-old male who noticed an acute visual deficit in his eyes this morning at approximately 430. Initially thought it was only in his left eye but he lost peripheral vision. He went to see his eye doctor today. He was noted to have no abnormality of the retinas and was sent to the emergency department for possible stroke symptoms. The patient denies having any nausea or vomiting. He denies having any chest pain or difficulty breathing. He has no history of stroke. He does have a history of DVT but takes no blood thinners. The patient was made a stroke alert from triage. ROS: See above HPI for pertinent positives & negatives. A total of 10 systems reviewed and were otherwise negative. PAST MEDICAL HISTORY: See Below PAST SURGICAL HISTORY: See Below FAMILY HISTORY: See Below SOCIAL HISTORY: See Below HOME MEDICATIONS: See Below ALLERGIES: See Below VITALS: See Below PHYSICAL EXAMINATION: GENERAL: Patient is awake alert in no acute distress patient is resting comfortably and showing no signs of anxiety EYES: The conjunctivae are clear. The pupils are round and reactive. There was loss of peripheral vision noted to the left visual field of each eye. Extraocular muscles are intact. EARS, NOSE, MOUTH AND THROAT: The nose is without any evidence of any deformity. Mucous membranes are moist. Tongue is midline. NECK: The neck is nontender and supple. RESPIRATORY: Normal respiratory effort is noted there is no evidence of wheezing rhonchi or rales CARDIOVASCULAR: Regular rate and rhythm noted there no murmurs rubs or gallops normal S1 normal S2. GASTROINTESTINAL: The abdomen is soft. Abdomen is nontender. MUSCULOSKELETAL/EXTREMITIES: There is no evidence of gross deformity full range of motion is noted in the hips and shoulders. SKIN: There is no obvious evidence of any rash. There are no petechiae, pallor or cyanosis noted. NEUROLOGIC: Patient is awake alert and oriented x3 strength is symmetric patellar reflexes are 2+ bilaterally MEDICAL DECISION MAKING: The patient is a 53-year-old male who presented to the emergency department at the request of his eye doctor. The patient had a loss of his peripheral vision this morning. He had no other symptoms. He waited to see his eye doctor. When his examination revealed no acute process he was sent to the emergency department for stroke workup. I discussed the patient's laboratory and radiographic studies with him. Given that his symptoms began less than 24 hours ago he was made a stroke alert. CT did appear to show signs of early ischemic stroke in the right occipital lobe. CT angiography showed a distal right IT SUPPORT TECHNICIAN occlusion. I discussed the patient's condition with the telestroke neurology group at [facility]. They do not feel the patient would be a candidate for mechanical thrombectomy at this time. I do agree with this. I discussed his condition with the on-call [facility]. They have agreed to evaluate the patient in the emergency department for further management and disposition. The patient's blood pressure was not in need of intervention. Triage Nursing notes reviewed. Prior medical records reviewed Vital Signs: reviewed and remarkable for no significant abnormalities Differential diagnosis: Conjunctivitis, trauma, corneal abrasion, hyphema, glaucoma, iritis, corneal ulcer, dendrite, CRAO, CRVO, vitreous detachment, retinal detachment, as well as other pathologies. ER treatment provided: See below Diagnostics interpreted by me: ECG: EKG was obtained in the emergency department. My interpretation is normal sinus rhythm at 79 bpm. There is no ectopy. There is no acute ST segment abnormalities noted. This was compared to a tracing from February 24, 2017. No changes were noted. Cardiac Monitoring: An order was placed for continuous cardiac monitoring. The monitor shows a rate of 87 bpm with sinus rhythm. Laboratory studies: As stated above and show below. Imaging studies: See below. Radiographic imaging was reviewed by myself Consultation(s): I discussed this case with Dr. Patel who is on-call for telestroke neurology. I discussed this case with Dr. Padilla who is on-call for [facility]. ED COURSE: Procedures: none Critical Care: I have personally spent greater than 35 minutes of critical care time in the direct management of this patient. This includes bedside care, interpretation of diagnostic studies, and testing, discussion with consultants, patient, and family members, and other required patient management activities. This 35 minutes is in excess of all separately billable procedures. Past Med/Surg History Problem List (Updated 05/31/24 @ 19:27 by Remy Zimmerman DO) Loss of peripheral visual field (Acute) Acute ischemic right IT SUPPORT TECHNICIAN stroke (Acute) Acute stroke due to ischemia Allergic rhinitis with postnasal drip Chronic bronchitis Abnormal chest CT Current smoker Alveolar emphysema of lung Aortic regurgitation Obesity History of incision and drainage (11/24/21) Incision and drainage perineal abscess Dr. Clark 11/24/2021 Perirectal abscess Chronic venous insufficiency Groin abscess Lung nodule Relationship dysfunction Fatigue Clear cell adenocarcinoma of kidney Pulmonary atelectasis Thoracic aortic aneurysm, without rupture Under observation Unremarkable thoracic aorta per 02/19/[address] Mildly dilated aortic root at 4.6cm per 08/05/20 ECHO Tachycardia METOPROLOL FOR/CONTROLS GERD without esophagitis Dyslipidemia Anxiety Umbilical hernia without obstruction and without gangrene Vitamin D deficiency (Chronic) Migraine, unspecified, not intractable, without status migrainosus (Acute) Allergic rhinitis Non-allergic rhinitis Gastric ulcer DVT (deep venous thrombosis) Diabetes mellitus type 2 in obese Right kidney mass Medical History (Updated 05/31/24 @ 19:27 by Remy Zimmerman DO) History of renal cell cancer WILLIAM (acute kidney injury) Superficial vein thrombosis 4YRS AGO > RIGHT LEG Right kidney mass REASON FOR UPCOMING SX Liver cyst FATTY / U/S ANNUAL History of DVT (deep vein thrombosis) DISTAL DVT - RIGHT LE- AUGUST 2021/ UNKNOWN ETIOLOGY Per PCP note from 08/28/21- heme evaluation was negative in the past after superficial vein thrombosis in 2018, seen by vascular surgery in the past, started on Eliquis x 3 months Migraines Gastritis WITH ULCERS DX FEB 2021 - F/U SCOPE/EVERYTHING CLEAR History of COVID-19 12/2019>HOSPITALIZED IN [place] (PNX BILAT. LUNG CURRIE>DID NOT REQUIRE INTUBATION) Clostridioides difficile infection HX History of anesthesia reaction - 2008> [facility] > AFTER EXTUBATION, WAS UNABLE TO BREATHE> PT UNSURE OF OTHER DETAILS. REPORTS WAS HEAVY SMOKER AT THE TIME. WAS GIVEN SHOT TO TAKE EXTRA FLUID OUT OF BODY - [place] 11/2021 without noted issues Hypertension Chronic obstructive pulmonary disease BEGINNING STAGES>NO INHALER Hearing loss Deviated nasal septum Prediabetes Hgb A1C 6.3 - diet controlled Hx of DM per 01/12/22 PCP note Obstructive sleep apnea NO CPAP Thyroid nodule NO FOLLOW UP NEEDED Surgical History History of biopsy THYROID History of colonoscopy History of carpal tunnel release RIGHT History of ankle surgery LEFT History of arthroscopy LEFT KNEE History of esophagogastroduodenoscopy (EGD) History of tooth extraction [place] teeth removed Hx of lipoma REMOVED FROM [facility] E[facility] AGE 3 H/O inguinal hernia repair History of appendectomy Family History Father Prostate cancer Diabetes Grandmother (Paternal) Diabetes Other Allergic rhinitis Asthma No family history of adverse response to anesthesia Thoracic aortic aneurysm Denies family history of Ovarian cancer Myocardial infarction Breast cancer Lung cancer Colorectal cancer Social History Smoking Status: Current every day smoker Tobacco Type: Cigarettes Age Started Using Tobacco: 14; packs per day: 0.5; Cigarettes Per Day: 0.5PPD/ADVISED NPO; Second Hand Exposure: No; Do You Dip or Chew Tobacco: No; Hx Alcohol Use: Yes (RARE /NO DRINK IN 6 MON) Alcohol type: beer Alcohol Intake Frequency Comment: 1-2 x/month Hx Substance Use: Yes (HX MARIJUANA YOUNGER AGE) Preferred Language: Kosovan Communication Ability: Effective Visual Impairment: Limited Hearing Ability: Normal 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 Sign Required: No Beliefs That Will Affect Care: None marital status: Current Living Situation: Spouse and Family Current Living Situation Comment: AND SON current occupational status: employed current occupation: works in a [employer] How many Children do You have: 1 Feels Safe at Home: Yes Childhood Exposure to Second-Hand Smoke: Yes caffeine: Yes (coffee ) Dental Care, Regularly: Yes Physical Activity Frequency: Does not Exercise Seatbelt Use: always Sunscreen Use: Yes Assistive Devices: None Allergies Allergies Allergy/AdvReac Type Severity Reaction Status Date / Time amoxicillin AdvReac Unknown GI SYMPTOMS Verified 05/22/24 10:52 clavulanic acid AdvReac Unknown GI SYMPTOMS Verified 05/22/24 10:52 prednisone AdvReac Unknown hyperactivi Verified 05/22/24 10:52 ty Home Meds Home Medications Medication Instructions Recorded Confirmed rizatriptan 5 mg tablet 5 mg PO UD PRN Headache 06/11/21 05/31/24 acetaminophen 650 mg 650 mg PO Q8H PRN Pain 11/04/22 05/31/24 tablet,extended release aspirin 325 mg tablet 325 mg PO DAILY 05/04/24 05/31/24 azelastine 137 mcg (0.1 %) nasal 2 spray intranasal DAILY 05/31/24 05/31/24 spray semaglutide 0.25 mg or 0.5 mg (2 0.5 mg subcut WK 05/31/24 05/31/24 mg/3 mL) subcutaneous pen injector (Ozempic) Previous Rx's Medication Instructions Recorded OneTouch Delica Plus Lancet 33 #100 ea 07/10/21 gauge (lancets) OneTouch Verio Flex meter #1 ea 07/10/21 (blood-glucose meter) OneTouch Verio test strips (blood #100 ea 07/10/21 sugar diagnostic) esomeprazole magnesium 40 mg 40 mg PO QAM #90 caps 07/06/23 capsule,delayed release (Nexium) sildenafil 50 mg tablet 50 mg PO DAILY PRN sexual activity 09/22/23 #14 tabs triamcinolone acetonide 0.1 % 1 applic topical BID PRN itching 09/22/23 topical cream #30 grams pravastatin 10 mg tablet 10 mg PO QAM #90 tabs 11/01/23 metoprolol succinate 25 mg 25 mg PO QPM #90 tabs 05/28/24 tablet,extended release 24 hr Results & Data (ED) Vital Signs Vital Signs - 24 hr 05/31/24 16:20 05/31/24 16:20 05/31/24 16:44 Temperature 36.7 C Temperature Source Skin Pulse Rate 83 96 H Pulse Rate from SpO2 Sensor Respiratory Rate 16 Respiratory Effort / Characteristics Non-Labored Spontaneous Respiratory Depth Normal Normal Respiratory Pattern Regular Blood Pressure 167/97 H Blood Pressure Mean 120 Pulse Oximetry 96 Oxygen Delivery Method Room Air Sepsis Recent Fever Within 48 Hours No Sepsis New/Unexplained Change in Mental Status N/A Sepsis Action Taken by Nursing No Action Required 05/31/24 16:45 05/31/24 16:48 05/31/24 17:03 Temperature Temperature Source Pulse Rate 83 80 76 Pulse Rate from SpO2 Sensor 80 76 Respiratory Rate 19 14 15 Respiratory Effort / Characteristics Respiratory Depth Respiratory Pattern Blood Pressure 152/94 H 137/83 137/83 Blood Pressure Mean 113 101 101 Pulse Oximetry 98 97 96 Oxygen Delivery Method Sepsis Recent Fever Within 48 Hours Sepsis New/Unexplained Change in Mental Status Sepsis Action Taken by Nursing 05/31/24 17:15 05/31/24 17:27 05/31/24 18:33 Temperature Temperature Source Pulse Rate 81 81 87 Pulse Rate from SpO2 Sensor 81 80 Respiratory Rate 15 13 16 Respiratory Effort / Characteristics Respiratory Depth Respiratory Pattern Blood Pressure 159/91 H 137/90 Blood Pressure Mean 113 105 Pulse Oximetry 98 96 94 Oxygen Delivery Method Sepsis Recent Fever Within 48 Hours Sepsis New/Unexplained Change in Mental Status Sepsis Action Taken by Skilled Nursing Medications Current Medication List: was personally reviewed by me Laboratory Data Attestation: I reviewed the patient's lab results. 05/31/24 16:41 05/31/24 16:41 Lab Results 05/31/24 05/31/24 Range/Units 16:41 16:45 WBC 9.18 (4.8-10.8) K/ul RBC 5.10 (4.70-6.10) M/uL Hgb 16.0 (14.0-18.0) g/dl Hct 46.2 (42.0-52.0) % MCV 90.6 (80.0-100.0) fL MCH 31.4 (25.0-34.0) pg MCHC 34.6 (32.0-36.0) g/dL RDW Std Deviation 41.3 (36.4-46.3) fL RDW Coeff of Kade 12.3 (11.5-14.5) % Plt Count 153 (130-400) K/uL MPV 10.7 (9.4-12.4) fL Immature Gran % (Auto) 0.3 % Neut % (Auto) 60.2 % Lymph % (Auto) 26.9 % Hood % (Auto) 9.8 % Eos % (Auto) 2.1 % Baso % (Auto) 0.7 % Neut # (Auto) 5.53 (1.40-6.50) K/uL Lymph # (Auto) 2.47 (1.20-3.40) K/uL Hood # (Auto) 0.90 H (0.11-0.59) K/uL Eos # (Auto) 0.19 (0.00-0.50) K/uL Baso # (Auto) 0.06 (0.00-0.20) K/uL Immature Gran # (Auto) 0.03 (0.01-0.20) K/uL PT 11.0 (9.0-12.0) Seconds INR 1.0 (0.9-1.1) APTT 26 (21-31) Seconds PTT Ratio 1.0 Sodium 136 (136-145) mmol/L Potassium 4.1 (3.5-5.1) mmol/L Chloride 103 (98-107) mmol/L Carbon Dioxide 31 (21-32) mmol/L Anion Gap 2 L (3-11) BUN 10 (6-23) mg/dl Creatinine 1.08 (0.6-1.4) mg/dl Est Cr Clr Drug Dosing 106.0 ml/min eGFR 81.04 BUN/Creatinine Ratio 9.3 L (10-20) Glucose 85 (70-99(Fasting)) mg/dl POC Glucose 86 (70-99) mg/dl Calcium 8.4 L (8.6-10.3) mg/dl Magnesium 1.8 (1.7-2.4) mg/dl Total Bilirubin 0.7 (0.2-1.0) mg/dl AST 11 L (13-39) U/L ALT 10 (7-52) U/L Alkaline Phosphatase 65 (34-104) U/L Troponin I High Sens < 2.3 (0-20) pg/ml Total Protein 5.9 L (6.0-8.3) gm/dl Albumin 4.1 (3.4-5.0) gm/dl Globulin 1.8 L (2.5-4.0) gm/dl Albumin/Globulin Ratio 2.3 H (0.9-2) Administered Medications Rosuvastatin Calcium (Rosuvastatin Calcium 20 Mg Tab) 20 mg PO [facility] Stop: 06/30/24 18:14 Last Admin: 05/31/24 18:29 Dose: 20 mg Documented By: JOSE A Discontinued Medications Clopidogrel Bisulfate (Clopidogrel Bisulfate 75 Mg Tab) 75 mg PO NOW ONE Stop: 05/31/24 18:09 Last Admin: 05/31/24 18:29 Dose: 75 mg Documented By: JOSE A Gadobutrol (Gadobutrol 65ml Vial) 11.8 ml IV ONCE ONE Stop: 05/31/24 19:28 Last Admin: 05/31/24 19:28 Dose: 11.8 ml Documented By: MIKE Ioversol (Optiray 320 125ml) 119 ml IV ONCE ONE Stop: 05/31/24 16:39 Last Admin: 05/31/24 16:39 Dose: 119 ml Documented By: LEIGHANN Lorazepam (Lorazepam 2 Mg/1 Ml Vial) 0.5 mg IV NOW STA Stop: 05/31/24 19:07 Last Admin: 05/31/24 19:13 Dose: 0.5 mg Documented By: JOSE A Sodium Chloride (Sodium Chloride 0.65% Na Soln 45 Ml ([place])) 2 sprays NA NOW ONE Stop: 05/31/24 18:12 Last Admin: 05/31/24 18:29 Dose: 2 sprays Documented By: JOSE A Imaging Data Attestation: I personally reviewed and interpreted this imaging study as follows: My Impression: CT of the brain was obtained in the emergency department. My interpretation is no intracranial hemorrhage or mass effect, possible early ischemic changes in the right occipital lobe, final report below. 1 view chest x-ray was obtained in the emergency department. My interpretation is no free air or definite infiltrate, final report pending. Radiologist's Impression: Head CT 05/31/24 16:[address] without contrast CT angiogram of the neck CT angiogram of the brain with contrast Provided History: Neuro deficit Comparison: None Technique: HEAD CT: Using multidetector thin collimation helical acquisition technique, axial, coronal and sagittal CT images from the skull base to the vertex were obtained without intravenous contrast. HEAD and NECK CTA: During rapid bolus intravenous injection of nonionic contrast material, axial images were obtained using thin collimation multidetector helical technique from the base of the neck through the of vertex of the head. This CT angiogram data was reconstructed at thin intervals with mild overlap. 3D reconstructions were obtained. The axial source images, multiplanar reformations, 3D reconstructions in both maximum intensity projection display and volume rendered models were reviewed. Dose reduction techniques were achieved by using automatic exposure control and/or adjustment of mA and/or kV according to patient size and/or use of iterative reconstruction technique. Findings: Head CT: There is no intracranial hemorrhage, mass effect, or midline shift. There is loss of the ching/white matter differentiation involving a small to moderate portion of the medial and anterior right occipital lobe, series 2 image 15. This area is associated with low attenuation. Ventricles are proportionate to the cerebral sulci. Head CTA demonstrates no aneurysm. There is a short segment of occlusion appreciated of the right posterior cerebral artery as seen on series 6 image 138, which immediately reconstitutes, spanning a length of approximately 5 mm, and at the P4 segment. Remaining arteries of the osage of Diane are patent. Neck CTA demonstrates no stenosis of the major cervical arteries. The origins of the great vessels from the aortic arch are patent. No mass is noted within the visualized portions of the cervical soft tissues or lung apices. Impression: 1. Head CTA demonstrates a short segment of loss of flow involving the distal right IT SUPPORT TECHNICIAN at the P4 segment, which immediately reconstitutes. Remaining arteries of the osage of Diane are patent. 2. Neck CTA demonstrates no stenosis of the major cervical arteries. No visualized unstable plaque or findings of an embolic source. 3. 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 4. There is a left thyroid gland 2 cm nodule. Recommend nonemergent thyroid ultrasound. Findings discussed with Dr. Zimmerman by Dr. Thorpe at 4:55 PM, 05/31/2024 Electronically signed by Enrico Thorpe 05-31-2024 5:00 PM Head CTA 05/31/24 16:[address] without contrast CT angiogram of the neck CT angiogram of the brain with contrast Provided History: Neuro deficit Comparison: None Technique: HEAD CT: Using multidetector thin collimation helical acquisition technique, axial, coronal and sagittal CT images from the skull base to the vertex were obtained without intravenous contrast. HEAD and NECK CTA: During rapid bolus intravenous injection of nonionic contrast material, axial images were obtained using thin collimation multidetector helical technique from the base of the neck through the of vertex of the head. This CT angiogram data was reconstructed at thin intervals with mild overlap. 3D reconstructions were obtained. The axial source images, multiplanar reformations, 3D reconstructions in both maximum intensity projection display and volume rendered models were reviewed. Dose reduction techniques were achieved by using automatic exposure control and/or adjustment of mA and/or kV according to patient size and/or use of iterative reconstruction technique. Findings: Head CT: There is no intracranial hemorrhage, mass effect, or midline shift. There is loss of the ching/white matter differentiation involving a small to moderate portion of the medial and anterior right occipital lobe, series 2 image 15. This area is associated with low attenuation. Ventricles are proportionate to the cerebral sulci. Head CTA demonstrates no aneurysm. There is a short segment of occlusion appreciated of the right posterior cerebral artery as seen on series 6 image 138, which immediately reconstitutes, spanning a length of approximately 5 mm, and at the P4 segment. Remaining arteries of the osage of Diane are patent. Neck CTA demonstrates no stenosis of the major cervical arteries. The origins of the great vessels from the aortic arch are patent. No mass is noted within the visualized portions of the cervical soft tissues or lung apices. Impression: 1. Head CTA demonstrates a short segment of loss of flow involving the distal right IT SUPPORT TECHNICIAN at the P4 segment, which immediately reconstitutes. Remaining arteries of the osage of Diane are patent. 2. Neck CTA demonstrates no stenosis of the major cervical arteries. No visualized unstable plaque or findings of an embolic source. 3. 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 4. There is a left thyroid gland 2 cm nodule. Recommend nonemergent thyroid ultrasound. Findings discussed with Dr. Zimmerman by Dr. Thorpe at 4:55 PM, 05/31/2024 Electronically signed by Enrico Thorpe 05-31-2024 5:00 PM Neck CTA 05/31/24 16:[address] without contrast CT angiogram of the neck CT angiogram of the brain with contrast Provided History: Neuro deficit Comparison: None Technique: HEAD CT: Using multidetector thin collimation helical acquisition technique, axial, coronal and sagittal CT images from the skull base to the vertex were obtained without intravenous contrast. HEAD and NECK CTA: During rapid bolus intravenous injection of nonionic contrast material, axial images were obtained using thin collimation multidetector helical technique from the base of the neck through the of vertex of the head. This CT angiogram data was reconstructed at thin intervals with mild overlap. 3D reconstructions were obtained. The axial source images, multiplanar reformations, 3D reconstructions in both maximum intensity projection display and volume rendered models were reviewed. Dose reduction techniques were achieved by using automatic exposure control and/or adjustment of mA and/or kV according to patient size and/or use of iterative reconstruction technique. Findings: Head CT: There is no intracranial hemorrhage, mass effect, or midline shift. There is loss of the ching/white matter differentiation involving a small to moderate portion of the medial and anterior right occipital lobe, series 2 image 15. This area is associated with low attenuation. Ventricles are proportionate to the cerebral sulci. Head CTA demonstrates no aneurysm. There is a short segment of occlusion appreciated of the right posterior cerebral artery as seen on series 6 image 138, which immediately reconstitutes, spanning a length of approximately 5 mm, and at the P4 segment. Remaining arteries of the osage of Diane are patent. Neck CTA demonstrates no stenosis of the major cervical arteries. The origins of the great vessels from the aortic arch are patent. No mass is noted within the visualized portions of the cervical soft tissues or lung apices. Impression: 1. Head CTA demonstrates a short segment of loss of flow involving the distal right IT SUPPORT TECHNICIAN at the P4 segment, which immediately reconstitutes. Remaining arteries of the osage of Diane are patent. 2. Neck CTA demonstrates no stenosis of the major cervical arteries. No visualized unstable plaque or findings of an embolic source. 3. 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 4. There is a left thyroid gland 2 cm nodule. Recommend nonemergent thyroid ultrasound. Findings discussed with Dr. Zimmerman by Dr. Thorpe at 4:55 PM, 05/31/2024 Electronically signed by Enrico Thorpe 05-31-2024 5:00 PM Discharge Plan Visit Data Chief Complaint: Visual Disturbance Stated Complaint: EYE ISSUES, CANT'T SEE ANYTHING ON LEFT SIDE ED Provider: Remy Zimmerman Discharge Problem: Acute ischemic right IT SUPPORT TECHNICIAN stroke, Loss of peripheral visual field Patient Disposition: Being Evaluated by Hospitalist Forms Stand Alone Forms: My [facility] Prescriptions Prescriptions: No Action rizatriptan 5 mg tablet 5 mg PO UD PRN (Reason: Headache) Patient Comments: NEVER HAD TO TAKE IT Rx Instructions: take 1 tablet at onset of headache; if no relief, may repeat 1 tablet after at least 2 hrs PO PRN; (DME) lancets [OneTouch Delica Plus Lancet] 33 gauge [facility] [place], [place] See Rx Instructions .Route Qty: 100 3RF Rx Instructions: use to test once daily (DME) blood-glucose meter [OneTouch Verio Flex meter] [facility] [place] See Rx Instructions .Route Qty: 1 0RF Rx Instructions: use to test once daily (DME) OneTouch Verio test strips Strip See Rx Instructions .Route Qty: 100 3RF Rx Instructions: use to test once daily esomeprazole magnesium [Nexium] 40 mg capsule,delayed release(DR/EC) 40 mg PO QAM Qty: 90 3RF pravastatin 10 mg tablet 10 mg PO QAM Qty: 90 3RF metoprolol succinate 25 mg tablet extended release 24 hr 25 mg PO QPM Qty: 90 3RF acetaminophen 650 mg tablet extended release 650 mg PO Q8H PRN (Reason: Pain) aspirin 325 mg tablet 325 mg PO DAILY triamcinolone acetonide 0.1 % cream 1 applic topical BID PRN (Reason: itching) Qty: 30 0RF sildenafil 50 mg tablet 50 mg PO DAILY PRN (Reason: sexual activity) Qty: 14 3RF Rx Instructions: administer 30 minutes to 4 hours before activity azelastine 137 mcg (0.1 %) spray,non-aerosol 2 spray intranasal DAILY Rx Instructions: USE 2 SPRAYS IN EACH NOSTRIL ONCE DAILY INSTRUCTED Ozempic 0.25 mg or 0.5 mg (2 mg/3 mL) pen injector 0.5 mg subcut WK Referrals Referrals: Cuba Alvarado, [Primary Care Provider] -
[2024-05-31 17:17] LABS: Alanine Aminotransferase 10 U/L (7-52); Albumin Globulin Ratio 2.3 (0.9-2); Albumin Level 4.1 gm/dl (3.4-5.0); Alkaline Phosphatase 65 U/L (34-104); Anion Gap 2 (3-11); Aspartate Aminotransferase 11 U/L (13-39); BUN Creatinine Ratio 9.3 (10-20); Bilirubin,Total 0.7 mg/dl (0.2-1.0); Blood Urea Nitrogen 10 mg/dl (6-23); Calcium 8.4 mg/dl (8.6-10.3); Carbon Dioxide 31 mmol/L (21-32); Chloride 103 mmol/L (98-107); Globulin 1.8 gm/dl (2.5-4.0); Glucose 85 mg/dl (70-99(Fasting)); Magnesium 1.8 mg/dl (1.7-2.4); Potassium 4.1 mmol/L (3.5-5.1); Sodium 136 mmol/L (136-145); Total Protein 5.9 gm/dl (6.0-8.3)
[2024-05-31 17:26] LABS: Troponin I High Sensitivity < 2.3 pg/ml (0-20)
[2024-05-31] MEDS: ROSUVASTATIN CALCIUM 20 MG TAB PO SCH (18:29)
[2024-05-31] MEDS: SODIUM CHLORIDE 0.65% NA SOLN 45 ML (OCEAN) ONE (18:29)
[2024-05-31] MEDS: CLOPIDOGREL BISULFATE 75 MG TAB PO ONE (18:29)
--- NOTE | 2024-05-31 18:34 | History & Physical Report ---
Date of Service May 31, 2024 Assessment & Plan (1) Acute stroke due to ischemia: (2) History of renal cell cancer: Plan Patient is a 53-year-old gentleman with history of smoking, COPD, kidney cancer status post surgery, removal, C. difficile diarrhea, GERD, lung nodule perirectal abscess, thoracic aortic aneurysm, DVT On May 31, 2024 morning he was having left-sided visual loss he went to his [facility] offices have a normal retinal exam and referred to our ED, CT head found subacute occipital infarct, CTA found Short segment loss of flow involving the distal right DOPER at the P4 segment was immediately reconstituted, 1. acute CVA (left side vision loss), occipital infarct 2.short segment loss of flow involving distal right DOPER at the P4 segment 3.hx of kidney mass s/p surgical removal 4. COPD, smoking (half pack per day; started age 14) 5. GERD 6. thoracic aneurysm 7. hypertension 8. hx of C. difficile diarrhea 9. lung nodules 10. hx of perirectal abscess 11. hx of DVT 1. acute CVA (left side vision loss) occipital infarct f/u on brain MRI w/wo contrast (using contrast given hx of malignancy) crestor 20mg, s/p aspirin 325mg adding plavix 75mg neuro check, echo with bubble studies, event monitor need smoking cessation home med of pravastatin 10mg (upon discharge, will begin pravastatin 40mg/80mg) discussed smoking cessation 2. GERD, c/w nexium 40mg at home 3. hypertension, hx of thoracic aneurysm c/w metoprolol 25mg daily 4. kidney cancer, s/p partial nephrectomy (right side) february [address] Van giraldo cell 5. lung nodules 6. rhinitis, he's on nasal add nasal saline 7. hx of C. difficile infection 8. hx of DVT, no longer on eliquis 9. obesity and diabetes, he's take ozempic 0.5mg sub-Q weekly Admission and Anticipated Discharge Date Admission Date: May 31 History of Present Illness Chief Complaint: left side vision loss since this morning CT scan found subacute infarct involving the right occipital lobe Loss of flow involving the distal right DOPER smoke since age 14. hx of kidney mass s/p surgery Primary Care Provider: DO Sabrina Gamezander Brown is a 53-year-old gentleman with history of smoking, started age 14 and currently half a pack a day, kidney cancer status post surgery, DVT COPD, lung nodule Since this morning he has left-sided visual loss, he was seen by [facility] [employer] [facility] and have a normal retinal exam, he denies any pain in his eye and denied headache He was referred by [facility] to our emergency room for evaluation, his CT has show short segment loss of flow involving distal right DOPER at the P4 segment was immediately with reconstitution. In addition they found acute and subacute infarct involving right occipital lobe he was started on aspirin, will begin Crestor 20 mg, begin Plavix On interview at 1 5:30 PM he denies any headache denies jaw pain denies slurred speech denies numbness tingling He does admit to family history of aneurysm and he is following with cardiology He is AO x 3 he is full code Allergies Allergy/AdvReac Type Severity Reaction Status Date / Time amoxicillin AdvReac Unknown GI SYMPTOMS Verified 05/22/24 10:52 clavulanic acid AdvReac Unknown GI SYMPTOMS Verified 05/22/24 10:52 prednisone AdvReac Unknown hyperactivi Verified 05/22/24 10:52 ty Home Medications Medication Instructions Recorded Confirmed Type rizatriptan 5 mg tablet 5 mg PO UD PRN Headache 06/11/21 05/31/24 History OneTouch Delica Plus Lancet 33 #100 ea 07/10/21 05/31/24 Rx gauge (lancets) OneTouch Verio Flex meter #1 ea 07/10/21 05/31/24 Rx (blood-glucose meter) OneTouch Verio test strips (blood #100 ea 07/10/21 05/31/24 Rx sugar diagnostic) acetaminophen 650 mg 650 mg PO Q8H PRN Pain 11/04/22 05/31/24 History tablet,extended release esomeprazole magnesium 40 mg 40 mg PO QAM #90 caps 07/06/23 05/31/24 Rx capsule,delayed release (Nexium) sildenafil 50 mg tablet 50 mg PO DAILY PRN sexual activity 09/22/23 05/31/24 Rx #14 tabs triamcinolone acetonide 0.1 % 1 applic topical BID PRN itching 09/22/23 05/31/24 Rx topical cream #30 grams pravastatin 10 mg tablet 10 mg PO QAM #90 tabs 11/01/23 05/31/24 Rx aspirin 325 mg tablet 325 mg PO DAILY 05/04/24 05/31/24 History metoprolol succinate 25 mg 25 mg PO QPM #90 tabs 05/28/24 05/31/24 Rx tablet,extended release 24 hr azelastine 137 mcg (0.1 %) nasal 2 spray intranasal DAILY 05/31/24 05/31/24 History spray semaglutide 0.25 mg or 0.5 mg (2 0.5 mg subcut WK 05/31/24 05/31/24 History mg/3 mL) subcutaneous pen injector (Ozempic) Past Med/Surg History Problem List (Updated 05/31/24 @ 18:22 by Hoang Padilla DO) Acute stroke due to ischemia Allergic rhinitis with postnasal drip Chronic bronchitis Abnormal chest CT Current smoker Alveolar emphysema of lung Aortic regurgitation Obesity History of incision and drainage (11/24/21) Incision and drainage perineal abscess Dr. Clark 11/24/2021 Perirectal abscess Chronic venous insufficiency Groin abscess Lung nodule Relationship dysfunction Fatigue Clear cell adenocarcinoma of kidney Pulmonary atelectasis Thoracic aortic aneurysm, without rupture Under observation Unremarkable thoracic aorta per 02/19/[address] Mildly dilated aortic root at 4.6cm per 08/05/20 ECHO Tachycardia METOPROLOL FOR/CONTROLS GERD without esophagitis Dyslipidemia Anxiety Umbilical hernia without obstruction and without gangrene Vitamin D deficiency (Chronic) Migraine, unspecified, not intractable, without status migrainosus (Acute) Allergic rhinitis Non-allergic rhinitis Gastric ulcer DVT (deep venous thrombosis) Diabetes mellitus type 2 in obese Right kidney mass Medical History (Updated 05/31/24 @ 18:22 by Hoang Padilla DO) History of renal cell cancer WILLIAM (acute kidney injury) Superficial vein thrombosis 4YRS AGO > RIGHT LEG Right kidney mass REASON FOR UPCOMING SX Liver cyst FATTY / U/S ANNUAL History of DVT (deep vein thrombosis) DISTAL DVT - RIGHT LE- AUGUST 2021/ UNKNOWN ETIOLOGY Per PCP note from 08/28/21- heme evaluation was negative in the past after superficial vein thrombosis in 2018, seen by vascular surgery in the past, started on Eliquis x 3 months Migraines Gastritis WITH ULCERS DX FEB 2021 - F/U SCOPE/EVERYTHING CLEAR History of COVID-19 12/2019>HOSPITALIZED IN [place] (PNX BILAT. LUNG CURRIE>DID NOT REQUIRE INTUBATION) Clostridioides difficile infection HX History of anesthesia reaction - 2008> [facility] > AFTER EXTUBATION, WAS UNABLE TO BREATHE> PT UNSURE OF OTHER DETAILS. REPORTS WAS HEAVY SMOKER AT THE TIME. WAS GIVEN SHOT TO TAKE EXTRA FLUID OUT OF BODY - Tolerated [place] 11/2021 without noted issues Hypertension Chronic obstructive pulmonary disease BEGINNING STAGES>NO INHALER Hearing loss Deviated nasal septum Prediabetes Hgb A1C 6.3 - diet controlled Hx of DM per 01/12/22 PCP note Obstructive sleep apnea NO CPAP Thyroid nodule NO FOLLOW UP NEEDED Surgical History History of biopsy THYROID History of colonoscopy History of carpal tunnel release RIGHT History of ankle surgery LEFT History of arthroscopy LEFT KNEE History of esophagogastroduodenoscopy (EGD) History of tooth extraction [place] teeth removed Hx of lipoma REMOVED FROM [facility] BIL[facility] EARS AGE 3 H/O inguinal hernia repair History of appendectomy Family History Father Prostate cancer Diabetes Grandmother (Paternal) Diabetes Other Allergic rhinitis Asthma No family history of adverse response to anesthesia Thoracic aortic aneurysm Denies family history of Ovarian cancer Myocardial infarction Breast cancer Lung cancer Colorectal cancer Social History Smoking Status: Current every day smoker Tobacco Type: Cigarettes Age Started Using Tobacco: 14; packs per day: 0.5; Cigarettes Per Day: 0.5PPD/ADVISED NPO; Second Hand Exposure: No; Do You Dip or Chew Tobacco: No; Hx Alcohol Use: Yes (RARE /NO DRINK IN 6 MON) Alcohol type: beer Alcohol Intake Frequency Comment: 1-2 x/month Hx Substance Use: Yes (HX MARIJUANA YOUNGER AGE) Preferred Language: Kiswahili Communication Ability: Effective Visual Impairment: Limited Hearing Ability: Normal Optical Glass Silverer Required: No Beliefs That Will Affect Care: None marital status: Current Living Situation: Spouse and Family Current Living Situation Comment: AND SON current occupational status: employed current occupation: works in a [employer] How many Children do You have: 1 Feels Safe at Home: Yes Childhood Exposure to Second-Hand Smoke: Yes caffeine: Yes (coffee ) Dental Care, Regularly: Yes Physical Activity Frequency: Does not Exercise Seatbelt Use: always Sunscreen Use: Yes Assistive Devices: None Review of Systems Review of Systems: Constitutional: No Weight Change, No Fever, No Chills ENT/Mouth: + for sinus pressure; no jaw pain Cardiovascular: no palpitation; no chest pain; + for Family hx of aneurysm Gastrointestinal: No Nausea, No Vomiting, No Diarrhea, No Constipation, No Pain, No Heartburn, No Anorexia, No Dysphagia, No Hematochezia, No Melena, No Flatulence, No Jaundice Genitourinary: + for hx of right kidney cancer Musculoskeletal: No Arthralgias, No Myalgias, No Joint Swelling, No Joint Stiffness, No Back Pain, No Neck Pain, No Injury History Neuro: No Weakness, No Numbness, No Paresthesias, No Loss of Consciousness, No Syncope, No Dizziness, No Headache, No Coordination Changes, No Recent Falls + for visual field loss; no eye pain; no slurred speech Endocrine: No Polyuria, No Polydipsia, No Temperature Intolerance Physical Exam Physical Exam: VITALS: Reviewed. WEIGHT/BMI reviewed. GEN: Healthy appearing, well-developed, NAD. Neuro: loss of visual field on the left eye; AAOx3; CN 2-12 grossly intact; no facial droop 5/5 strength in upper extremity; no pronator drift; normal sensation to soft touch able to hold his leg against gravity for more than 5 seconds (no drift); -Head: NC/AT; -Eyes: PERRL, EOMI. No discharge or redn ess; NECK: no carotid bruit CV: RRR, no m/r/g. LUNGS: CTAB, no w/r/c. ABD: Soft, NT/ND, NBS, no masses or organomegaly. : no CVA tenderness SKIN: Warm, well perfused. No skin rashes or abnormal lesions. MSK: No deformities, Normal gait. Results & Data Results & Data Vital Signs (Past 12 Hours) Vital Signs Temp Pulse Resp BP Pulse Ox O2 Del Method 05/31/24 17:27 81 13 137/90 96 05/31/24 17:15 81 15 159/91 H 98 05/31/24 17:03 76 15 137/83 96 05/31/24 16:48 80 14 137/83 97 05/31/24 16:45 83 19 152/94 H 98 05/31/24 16:44 96 H 05/31/24 16:20 36.7 C 83 16 167/97 H 96 Room Air Laboratory Results Abnormal Lab Results 05/31/24 05/31/24 16:41 16:45 WBC 9.18 RBC 5.10 Hgb 16.0 Hct 46.2 MCV 90.6 MCH 31.4 MCHC 34.6 RDW Std Deviation 41.3 RDW Coeff of Kade 12.3 Plt Count 153 MPV 10.7 Immature Gran % (Auto) 0.3 Neut % (Auto) 60.2 Lymph % (Auto) 26.9 [place] % (Auto) 9.8 Eos % (Auto) 2.1 Baso % (Auto) 0.7 Neut # (Auto) 5.53 Lymph # (Auto) 2.47 [place] # (Auto) 0.90 H Eos # (Auto) 0.19 Baso # (Auto) 0.06 Immature Gran # (Auto) 0.03 Sodium 136 Potassium 4.1 Chloride 103 Carbon Dioxide 31 Anion Gap 2 L BUN 10 Creatinine 1.08 Est Cr Clr Drug Dosing 106.0 eGFR 81.04 BUN/Creatinine Ratio 9.3 L Glucose 85 POC Glucose 86 Calcium 8.4 L Magnesium 1.8 Total Bilirubin 0.7 AST 11 L ALT 10 Alkaline Phosphatase 65 Troponin I High Sens < 2.3 Total Protein 5.9 L Albumin 4.1 Globulin 1.8 L Albumin/Globulin Ratio 2.3 H Diagnostic Findings Head CT 05/31/24 16:[address] without contrast CT angiogram of the neck CT angiogram of the brain with contrast Provided History: Neuro deficit Comparison: None Technique: HEAD CT: Using multidetector thin collimation helical acquisition technique, axial, coronal and sagittal CT images from the skull base to the vertex were obtained without intravenous contrast. HEAD and NECK CTA: During rapid bolus intravenous injection of nonionic contrast material, axial images were obtained using thin collimation multidetector helical technique from the base of the neck through the of vertex of the head. This CT angiogram data was reconstructed at thin intervals with mild overlap. 3D reconstructions were obtained. The axial source images, multiplanar reformations, 3D reconstructions in both maximum intensity projection display and volume rendered models were reviewed. Dose reduction techniques were achieved by using automatic exposure control and/or adjustment of mA and/or kV according to patient size and/or use of iterative reconstruction technique. Findings: Head CT: There is no intracranial hemorrhage, mass effect, or midline shift. There is loss of the ching/white matter differentiation involving a small to moderate portion of the medial and anterior right occipital lobe, series 2 image 15. This area is associated with low attenuation. Ventricles are proportionate to the cerebral sulci. Head CTA demonstrates no aneurysm. There is a short segment of occlusion appreciated of the right posterior cerebral artery as seen on series 6 image 138, which immediately reconstitutes, spanning a length of approximately 5 mm, and at the P4 segment. Remaining arteries of the [place] are patent. Neck CTA demonstrates no stenosis of the major cervical arteries. The origins of the great vessels from the aortic arch are patent. No mass is noted within the visualized portions of the cervical soft tissues or lung apices. Impression: 1. Head CTA demonstrates a short segment of loss of flow involving the distal right DOPER at the P4 segment, which immediately reconstitutes. Remaining arteries of the [place] are patent. 2. Neck CTA demonstrates no stenosis of the major cervical arteries. No visualized unstable plaque or findings of an embolic source. 3. 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 4. There is a left thyroid gland 2 cm nodule. Recommend nonemergent thyroid ultrasound. Findings discussed with Dr. Zimmerman by Dr. Thorpe at 4:55 PM, 05/31/2024 Electronically signed by Enrico Thorpe 05-31-2024 5:00 PM Head CTA 05/31/24 16:[address] without contrast CT angiogram of the neck CT angiogram of the brain with contrast Provided History: Neuro deficit Comparison: None Technique: HEAD CT: Using multidetector thin collimation helical acquisition technique, axial, coronal and sagittal CT images from the skull base to the vertex were obtained without intravenous contrast. HEAD and NECK CTA: During rapid bolus intravenous injection of nonionic contrast material, axial images were obtained using thin collimation multidetector helical technique from the base of the neck through the of vertex of the head. This CT angiogram data was reconstructed at thin intervals with mild overlap. 3D reconstructions were obtained. The axial source images, multiplanar reformations, 3D reconstructions in both maximum intensity projection display and volume rendered models were reviewed. Dose reduction techniques were achieved by using automatic exposure control and/or adjustment of mA and/or kV according to patient size and/or use of iterative reconstruction technique. Findings: Head CT: There is no intracranial hemorrhage, mass effect, or midline shift. There is loss of the ching/white matter differentiation involving a small to moderate portion of the medial and anterior right occipital lobe, series 2 image 15. This area is associated with low attenuation. Ventricles are proportionate to the cerebral sulci. Head CTA demonstrates no aneurysm. There is a short segment of occlusion appreciated of the right posterior cerebral artery as seen on series 6 image 138, which immediately reconstitutes, spanning a length of approximately 5 mm, and at the P4 segment. Remaining arteries of the [place] are patent. Neck CTA demonstrates no stenosis of the major cervical arteries. The origins of the great vessels from the aortic arch are patent. No mass is noted within the visualized portions of the cervical soft tissues or lung apices. Impression: 1. Head CTA demonstrates a short segment of loss of flow involving the distal right DOPER at the P4 segment, which immediately reconstitutes. Remaining arteries of the [place] are patent. 2. Neck CTA demonstrates no stenosis of the major cervical arteries. No visualized unstable plaque or findings of an embolic source. 3. 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 4. There is a left thyroid gland 2 cm nodule. Recommend nonemergent thyroid ultrasound. Findings discussed with Dr. Zimmerman by Dr. Thorpe at 4:55 PM, 05/31/2024 Electronically signed by Enrico Thorpe 05-31-2024 5:00 PM Neck CTA 05/31/24 16:[address] without contrast CT angiogram of the neck CT angiogram of the brain with contrast Provided History: Neuro deficit Comparison: None Technique: HEAD CT: Using multidetector thin collimation helical acquisition technique, axial, coronal and sagittal CT images from the skull base to the vertex were obtained without intravenous contrast. HEAD and NECK CTA: During rapid bolus intravenous injection of nonionic contrast material, axial images were obtained using thin collimation multidetector helical technique from the base of the neck through the of vertex of the head. This CT angiogram data was reconstructed at thin intervals with mild overlap. 3D reconstructions were obtained. The axial source images, multiplanar reformations, 3D reconstructions in both maximum intensity projection display and volume rendered models were reviewed. Dose reduction techniques were achieved by using automatic exposure control and/or adjustment of mA and/or kV according to patient size and/or use of iterative reconstruction technique. Findings: Head CT: There is no intracranial hemorrhage, mass effect, or midline shift. There is loss of the ching/white matter differentiation involving a small to moderate portion of the medial and anterior right occipital lobe, series 2 image 15. This area is associated with low attenuation. Ventricles are proportionate to the cerebral sulci. Head CTA demonstrates no aneurysm. There is a short segment of occlusion appreciated of the right posterior cerebral artery as seen on series 6 image 138, which immediately reconstitutes, spanning a length of approximately 5 mm, and at the P4 segment. Remaining arteries of the [place] are patent. Neck CTA demonstrates no stenosis of the major cervical arteries. The origins of the great vessels from the aortic arch are patent. No mass is noted within the visualized portions of the cervical soft tissues or lung apices. Impression: 1. Head CTA demonstrates a short segment of loss of flow involving the distal right DOPER at the P4 segment, which immediately reconstitutes. Remaining arteries of the [place] are patent. 2. Neck CTA demonstrates no stenosis of the major cervical arteries. No visualized unstable plaque or findings of an embolic source. 3. 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 4. There is a left thyroid gland 2 cm nodule. Recommend nonemergent thyroid ultrasound. Findings discussed with Dr. Zimmerman by Dr. Thorpe at 4:55 PM, 05/31/2024 Electronically signed by Enrico Thorpe 05-31-2024 5:00 PM Medications Administered Home Medications Medication Instructions Recorded Confirmed Last Taken rizatriptan 5 mg tablet 5 mg PO UD PRN Headache 06/11/21 05/31/24 Unknown OneTouch Delica Plus Lancet 33 #100 ea 07/10/21 05/31/24 Unknown gauge (lancets) OneTouch Verio Flex meter #1 ea 07/10/21 05/31/24 Unknown (blood-glucose meter) OneTouch Verio test strips (blood #100 ea 07/10/21 05/31/24 Unknown sugar diagnostic) acetaminophen 650 mg 650 mg PO Q8H PRN Pain 11/04/22 05/31/24 Unknown tablet,extended release esomeprazole magnesium 40 mg 40 mg PO QAM #90 caps 07/06/23 05/31/24 Unknown capsule,delayed release (Nexium) sildenafil 50 mg tablet 50 mg PO DAILY PRN sexual activity 09/22/23 05/31/24 Unknown #14 tabs triamcinolone acetonide 0.1 % 1 applic topical BID PRN itching 09/22/23 05/31/24 Unknown topical cream #30 grams pravastatin 10 mg tablet 10 mg PO QAM #90 tabs 11/01/23 05/31/24 Unknown aspirin 325 mg tablet 325 mg PO DAILY 05/04/24 05/31/24 Unknown metoprolol succinate 25 mg 25 mg PO QPM #90 tabs 05/28/24 05/31/24 Unknown tablet,extended release 24 hr azelastine 137 mcg (0.1 %) nasal 2 spray intranasal DAILY 05/31/24 05/31/24 Unknown spray semaglutide 0.25 mg or 0.5 mg (2 0.5 mg subcut WK 05/31/24 05/31/24 Unknown mg/3 mL) subcutaneous pen injector ([employer]) Current Inpatient Medications Clopidogrel Bisulfate (Clopidogrel Bisulfate 75 Mg Tab) 75 mg PO QAM KALA Stop: 07/01/24 08:59 Rosuvastatin Calcium (Rosuvastatin Calcium 20 Mg Tab) 20 mg PO QAM KALA Stop: 06/30/24 18:14 Code Status & VTE Plan Code Status full code Critical Care Time 20 minutes PG Care Time/CCT Total # of Minutes Spent Total Time Spent with Patient: Total time spent is greater than 50% in coordination of care (as documented) at patient's floor/unit and/or counseling patient: Coding Level of Care Code 91526 INT INP/OBS CARE 2/55MIN Diagnoses Acute stroke due to ischemia I63.9 History of renal cell cancer Z85.528 Time Spent (min) 56
[2024-05-31 18:59] LABS: Partial Thromboplastin Time 26 Seconds (21-31)
[2024-05-31] MEDS: LORazepam 2 MG/1 ML VIAL IV STA (19:13)
[2024-05-31] MEDS: GADOBUTROL 65ML VIAL IV ONE (19:28)
[2024-05-31] MEDS ORDERED: POLYETHYLENE (MIRALAX) 17 GM PACK PO PRN (19:42)
[2024-05-31] MEDS ORDERED: ALUMINUM/MAGNESIUM SUSP 30 ML UDC PO PRN (19:42)
[2024-05-31] MEDS ORDERED: PHARMACIST DISCHARGE MED REC CONSULT PRN (20:06)
--- NOTE | 2024-05-31 21:04 | XRay Report ---
Exam(s): XR CXR 1 VIEW EXAM: XR Chest, 1 View CLINICAL HISTORY: Reason for exam: neuro deficit, acute stroke suspected. TECHNIQUE: Frontal view of the chest. COMPARISON: None. FINDINGS: Lungs: Minimal linear scarring right lower lobe and midlung. Otherwise, clear. No pleural effusion or consolidation. Pleural space: No pneumothorax. Heart: No cardiomegaly. Mediastinum: Unremarkable. Bones/Soft Tissues: No acute abnormality. IMPRESSION: 1. No acute process in the chest. Electronically signed by: Jie Platt M.D. 05/31/24 21:03 PM
--- NOTE | 2024-05-31 21:10 | Magnetic Resonance Report ---
Exam(s): MRI HEAD W/WO Contrast EXAM: MR Head Without and With Intravenous Contrast CLINICAL HISTORY: Reason for exam: left vision loss, r/o stroke, hx of Renal Ca. TECHNIQUE: Magnetic resonance images of the head/brain without and with intravenous contrast in multiple planes. CONTRAST: IV contrast is given. COMPARISON: Head CT/CTA, same day. FINDINGS: Brain: Reduced diffusion right occipital lobe, corresponding to CT abnormality, compatible with acute infarct. No mass effect or acute hemorrhage. No mass or abnormal enhancement. No evidence to suggest metastatic disease. Mild, scattered, nonspecific, chronic white matter disease. Ventricles: No hydrocephalus or midline shift. Bones/joints: No acute finding. Soft tissues: No scalp hematoma. Visualized Sinuses: Clear. Mastoid air cells: No mastoid effusion. IMPRESSION: 1. Acute, nonhemorrhagic right occipital lobe infarct. 2. No abnormal enhancement or evidence of metastatic disease. Electronically signed by: Jie Platt M.D. 05/31/24 21:09 PM
[2024-05-31] MEDS ORDERED: TRIAMCINOLONE ACET 0.1% CR 15 GM TUBE TOP PRN (22:01)
[2024-05-31] MEDS ORDERED: RIZATRIPTAN BENZOATE 10 MG TAB PO PRN (22:01)
[2024-06-01] MEDS: NON-FORMULARY MEDICATION (Blood Sugar Diagnostic [Onetouch Verio Test Strips] strip) SCH (00:24)
[2024-06-01] MEDS: NON-FORMULARY MEDICATION (Lancets [Onetouch Delica Plus Lancet] 33 gauge misc) SCH (00:25)
[2024-06-01] MEDS: BLOOD GLUCOSE METER SCH (00:25)
[2024-06-01] MEDS: ACETAMINOPHEN 325 MG TAB PO PRN ×2 (02:34→20:17)
[2024-06-01 06:29] LABS: Basophils # (auto) 0.03 K/uL (0.00-0.20); Basophils % (auto) 0.4 %; Eosinophils # (auto) 0.07 K/uL (0.00-0.50); Eosinophils % (auto) 0.8 %; Hemoglobin 16.7 g/dl (14.0-18.0); Immature Granulocytes # (auto) 0.02 K/uL (0.01-0.20); Immature Granulocytes % (auto) 0.2 %; Lymphocytes # (auto) 0.79 K/uL (1.20-3.40); Lymphocytes % (auto) 9.2 %; Mean Corpuscular Hemoglobin 31.2 pg (25.0-34.0); Mean Corpuscular Hgb Conc 34.8 g/dL (32.0-36.0); Mean Corpuscular Volume 89.6 fL (80.0-100.0); Mean Platelet Volume 10.9 fL (9.4-12.4); Monocytes # (auto) 0.91 K/uL (0.11-0.59); Monocytes % (auto) 10.6 %; Neutrophils # (auto) 6.75 K/uL (1.40-6.50); Neutrophils % (auto) 78.8 %; Platelet Count 150 K/uL (130-400); RDW Coefficient of Variation 12.4 % (11.5-14.5); RDW Standard Deviation 40.6 fL (36.4-46.3); Red Blood Count 5.36 M/uL (4.70-6.10); White Blood Count 8.57 K/ul (4.8-10.8)
[2024-06-01 06:48] LABS: Prothrombin Time 10.7 Seconds (9.0-12.0)
[2024-06-01 06:50] LABS: Alanine Aminotransferase 124 U/L (7-52); Albumin Globulin Ratio 1.7 (0.9-2); Albumin Level 3.7 gm/dl (3.4-5.0); Alkaline Phosphatase 110 U/L (34-104); Anion Gap 3 (3-11); Aspartate Aminotransferase 175 U/L (13-39); BUN Creatinine Ratio 10.8 (10-20); Bilirubin,Total 1.7 mg/dl (0.2-1.0); Blood Urea Nitrogen 11 mg/dl (6-23); Calcium 8.8 mg/dl (8.6-10.3); Carbon Dioxide 31 mmol/L (21-32); Chloride 106 mmol/L (98-107); Chol HDL Ratio 2.9 (0-5); Cholesterol 105 mg/dl (0-200); Creatinine Clr Calc Pharmacy 108.5 ml/min; Globulin 2.2 gm/dl (2.5-4.0); Glucose 99 mg/dl (70-99(Fasting)); HDL Cholesterol 36 mg/dl; LDL Cholesterol Calculated 43 mg/dl; Potassium 4.6 mmol/L (3.5-5.1); Sodium 140 mmol/L (136-145); Total Protein 5.9 gm/dl (6.0-8.3); Triglycerides 129 mg/dl (0-150); VLDL Cholesterol 26 mg/dl (0-30)
[2024-06-01 06:56] LABS: Troponin I High Sensitivity < 2.3 pg/ml (0-20)
[2024-06-01] MEDS: ASPIRIN 325 MG ECTAB PO SCH (08:10)
[2024-06-01] MEDS: AZELASTINE HCL 0.1% NASAL 200 SPRAYS/27,400 MCG BTL NS SCH (08:11)
[2024-06-01] MEDS: PANTOprazole 40 MG TAB PO SCH (08:11)
[2024-06-01 08:17] LABS: Estimated Average Glucose 111 mg/dl; Hemoglobin A1C 5.5 % (4.5-5.6)
[2024-06-01] MEDS: CLOPIDOGREL BISULFATE 75 MG TAB PO SCH (08:42)
--- NOTE | 2024-06-01 08:50 | Pharmacy Report ---
- Date of Service June 01, 2024 - Pharmacy CVA/TIA Medication Review Medications to Prevent Stroke handout has been added to the patients discharge packet. Antiplatelet(s) * aspirin + plavix Cholesterol * High intensity statin: rosuvastatin 20 mg daily DVT Prophylaxis * SCD knee Therapeutic Anticoagulation * No history of Afib/Aflutter noted Type 2 Diabetes * Patient has T2DM and patient is prescribed semaglutide
[2024-06-01] MEDS ORDERED: ASPIRIN 325 MG ECTAB PO SCH (09:00)
[2024-06-01] MEDS ORDERED: ASPIRIN 81 MG ECTAB PO SCH (09:00)
[2024-06-01] MEDS ORDERED: PANTOprazole 40 MG TAB PO SCH (09:00)
--- NOTE | 2024-06-01 09:05 | Neurology Consultation ---
Date of Consultation June 01, 2024 Assessment & Plan (1) Loss of peripheral visual field: History of Present Illness Attending Physician: Hoang Padilla DO History of Present Illness S: pt doing well. pt still with left side vision change. he noted yesterday. mri brain noted for rt occipital stroke (inferior). no bleed. no weakness. no other deficits. pt usually has low BP. pt was on ASA as outpt. stopped eliquis about a year ago for his DVT tx. CTA finding noted. Admission HPI: Raúl Brown is a 53-year-old gentleman with history of smoking, started age 14 and currently half a pack a day, kidney cancer status post surgery, DVT COPD, lung nodule Since this morning he has left-sided visual loss, he was seen by car hostler and have a normal retinal exam, he denies any pain in his eye and denied headache He was referred by car hostler to our emergency room for evaluation, his CT has show short segment loss of flow involving distal right CONTINUOUS LOFT OPERATOR at the P4 segment was immediately with reconstitution. In addition they found acute and subacute infarct involving right occipital lobe he was started on aspirin, will begin Crestor 20 mg, begin Plavix On interview at 1 5:30 PM he denies any headache denies jaw pain denies slurred speech denies numbness tingling He does admit to family history of aneurysm and he is following with cardiology He is AO x 3 he is full code Allergies Allergy/AdvReac Type Severity Reaction Status Date / Time amoxicillin AdvReac Unknown GI SYMPTOMS Verified 05/22/24 10:52 clavulanic acid AdvReac Unknown GI SYMPTOMS Verified 05/22/24 10:52 prednisone AdvReac Unknown hyperactivi Verified 05/22/24 10:52 ty Home Medications Medication Instructions Recorded Confirmed Type rizatriptan 5 mg tablet 5 mg PO UD PRN Headache 06/11/21 05/31/24 History OneTouch Delica Plus Lancet 33 #100 ea 07/10/21 05/31/24 Rx gauge (lancets) OneTouch Verio Flex meter #1 ea 07/10/21 05/31/24 Rx (blood-glucose meter) OneTouch Verio test strips (blood #100 ea 07/10/21 05/31/24 Rx sugar diagnostic) acetaminophen 650 mg 650 mg PO Q8H PRN Pain 11/04/22 05/31/24 History tablet,extended release esomeprazole magnesium 40 mg 40 mg PO QAM #90 caps 07/06/23 05/31/24 Rx capsule,delayed release (Nexium) sildenafil 50 mg tablet 50 mg PO DAILY PRN sexual activity 09/22/23 05/31/24 Rx #14 tabs triamcinolone acetonide 0.1 % 1 applic topical BID PRN itching 09/22/23 05/31/24 Rx topical cream #30 grams pravastatin 10 mg tablet 10 mg PO QAM #90 tabs 11/01/23 05/31/24 Rx aspirin 325 mg tablet 325 mg PO DAILY 05/04/24 05/31/24 History metoprolol succinate 25 mg 25 mg PO QPM #90 tabs 05/28/24 05/31/24 Rx tablet,extended release 24 hr azelastine 137 mcg (0.1 %) nasal 2 spray intranasal DAILY 05/31/24 05/31/24 History spray semaglutide 0.25 mg or 0.5 mg (2 0.5 mg subcut WK 05/31/24 05/31/24 History mg/3 mL) subcutaneous pen injector (Ozempic) Patient History Medical History (Updated 06/01/24 @ 09:05 by Swapnil Whitten MD) History of renal cell cancer WILLIAM (acute kidney injury) Superficial vein thrombosis 4YRS AGO > RIGHT LEG Right kidney mass REASON FOR UPCOMING SX Liver cyst FATTY / U/S ANNUAL History of DVT (deep vein thrombosis) DISTAL DVT - RIGHT LE- AUGUST 2021/ UNKNOWN ETIOLOGY Per PCP note from 08/28/21- heme evaluation was negative in the past after superficial vein thrombosis in 2018, seen by vascular surgery in the past, started on Eliquis x 3 months Migraines Gastritis WITH ULCERS DX FEB 2021 - F/U SCOPE/EVERYTHING CLEAR History of COVID-19 12/2019>HOSPITALIZED IN [place] (PNX BILAT. LUNG CURRIE>DID NOT REQUIRE INTUBATION) Clostridioides difficile infection HX History of anesthesia reaction - 2008> [facility] > AFTER EXTUBATION, WAS UNABLE TO BREATHE> PT UNSURE OF OTHER DETAILS. REPORTS WAS HEAVY SMOKER AT THE TIME. WAS GIVEN SHOT TO TAKE EXTRA FLUID OUT OF BODY - Tolerated [place] 11/2021 without noted issues Hypertension Chronic obstructive pulmonary disease BEGINNING STAGES>NO INHALER Hearing loss Deviated nasal septum Prediabetes Hgb A1C 6.3 - diet controlled Hx of DM per 01/12/22 PCP note Obstructive sleep apnea NO CPAP Thyroid nodule NO FOLLOW UP NEEDED Surgical History History of biopsy THYROID History of colonoscopy History of carpal tunnel release RIGHT History of ankle surgery LEFT History of arthroscopy LEFT KNEE History of esophagogastroduodenoscopy (EGD) History of tooth extraction [place] teeth removed Hx of lipoma REMOVED FROM [facility] BILAT EARS AGE 3 H/O inguinal hernia repair History of appendectomy Family History Father Prostate cancer Diabetes Grandmother (Paternal) Diabetes Other Allergic rhinitis Asthma No family history of adverse response to anesthesia Thoracic aortic aneurysm Denies family history of Ovarian cancer Myocardial infarction Breast cancer Lung cancer Colorectal cancer Social History Smoking Status: Current every day smoker Tobacco Type: Cigarettes Age Started Using Tobacco: 14; packs per day: 0.5; Cigarettes Per Day: 1/2 pack per day; Second Hand Exposure: No; Do You Dip or Chew Tobacco: No; Hx Alcohol Use: No Hx Substance Use: No Preferred Language: Lithuanian Communication Ability: Effective Visual Impairment: Limited Hearing Ability: Normal Pick And Shovel Man Required: No Beliefs That Will Affect Care: None marital status: Current Living Situation: Spouse Current Living Situation Comment: AND SON current occupational status: employed 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 How many Children do You have: 1 Other Information That Helps Us Care for You: No Feels Safe at Home: Yes Safety Concerns: Feels Safe At This Time Childhood Exposure to Second-Hand Smoke: Yes caffeine: Yes (coffee ) Dental Care, Regularly: Yes Physical Activity Frequency: Does not Exercise Seatbelt Use: always Sunscreen Use: Yes Assistive Devices: Contacts Review of Systems Review of Systems: All systems reviewed & are unremarkable except as noted in Subjective Constitutional: as per Subjective / HPI Eyes: as per Subjective / HPI Ear, Nose, Mouth, Throat: as per Subjective / HPI Respiratory: as per Subjective / HPI Cardiovascular: as per Subjective / HPI Gastrointestinal: as per Subjective / HPI Musculoskeletal: as per Subjective / HPI Integumentary: as per Subjective / HPI Neurologic: as per Subjective / HPI Psychiatric: as per Subjective / HPI Endocrine: as per Subjective / HPI Hematologic / Lymphatic: as per Subjective / HPI Allergy / Immunological: as per Subjective / HPI Exam (Neuro) Physical Exam: HEENT: normocephalic Neuro: Mental: AOx4, fluent speech, normal comprehension, no apraxia, CN: PERRL, Full EOM, symmetric face, midline T/U/P, noted for left upper quadrant anopsia. Motor: No abnormal movements, normal tone and bulk, 5/5 t/o bilaterally Coord: intact Gait: intact grossly Impression: 53 yo male with left homonymous upper quadrantanopsia from ischemic stroke of rt occipital area, likely from his vascular narrowing/block rt CONTINUOUS LOFT OPERATOR P4 segment. It is likely chronic vascular issue and his stroke appears to be subacute as his DWI/ADC does not patch, suggestive of subacute lesion. Recommendations: 1. Standard stroke work up as planned 2. antiplatelet therapy: 90 days for thi s pt. * DAPT (dual antiplatelet therapy): start for pts with ABCD2 score 4 or higher. Initial loading dose with ASA 325mg and Plavix 300mg (if pt has not been started), then ASA 81mg daily and Plavix 75mg daily. Continue DAPT for 21 days if found small vessel disease only or continue for 90 days if found to have intracranial large artery atherosclerosis. After that, can continue single antiplatelet therapy (either ASA or Plavix). 3. Images: TTE with bubble pending repo rt. 4. Permissive Hypertension for next 24-4 8 hrs. Keep SBP goal range less than 220. Avoid hypotension. Do not stop beta-bronson if on it. 5. If noted for large intracranial vesse l stenosis, slow reduction of BP and allowing permissive HTN next 5-7 days. 6. Long-term SBP goal less than 130. 7. Plenty of hydration including IV flui d if possible (use isotonic solution) next 1-2 days. Avoid hypovolemia and hypotension. 8. Initiate DVT prevention therapy. 9. Avoid hypoglycemia, serum glucose goa l during hospitalization: 140-180. 10. Long-term HgA1c goal less than 7. 11. Start statin if not on it and no abs olute contraindication, long-term LDL goal less than 70. 12. Head of bed up 30 degrees if possibl e. 13. Stroke education by nursing and appr opriate staff. 14. Telemetry monitoring. Consider bankruptcy paralegal cardiac monitoring, i.e. MCOT (mobile cardiac outpatient telemetry) or ICM (insertable circuit design engineer, e.g. LINQ), if never had bankruptcy paralegal cardiac monitoring done previously. And if found to have atrial flutter or fibrillation, should consider anticoagulation therapy if no contraindication. 15. outpt ophthalmology consult for visu al field testing. otherwise not much to add. please call again if new question. Chart reviewed I have spent more than 50% educating patient about potential diagnosis and neurological evaluation and coordinating care with patient's treatment team. Total time spent (including chart review and coordination of care): 60 min (this includes chart review). Results & Data Vital Signs (Past 12 Hours) Vital Signs Temp Pulse Pulse Resp BP Pulse Ox O2 Del Method 06/01/24 07:21 36.7 C 79 18 114/71 93 Room Air 06/01/24 02:32 37.2 C 95 H 16 118/67 91 Room Air 05/31/24 23:10 Room Air 05/31/24 21:28 78 05/31/24 21:25 36.9 C 18 96 Room Air PG Care Time/CCT Total # of Minutes Spent Total Time Spent with Patient: Total time spent is greater than 50% in coordination of care (as documented) at patient's floor/unit and/or counseling patient: Coding Level of Care Code 94468 IN/OBS CONSULT LVL 4,60M Diagnoses Peripheral visual field defect of both eyes H53.453 Laterality: bilateral (1) Loss of peripheral visual field Laterality: bilateral Qualified Code(s): H53.453 - Other localized visual field defect, bilateral
[2024-06-01] MEDS: LACTATED RINGER'S 1,000 ML IV ONE (10:01)
--- NOTE | 2024-06-01 14:26 | Electrocardiogram Report ---
Test Reason : Blood Pressure : */* mmHG Vent. Rate : 79 BPM Atrial Rate : 79 BPM P-R Int : 188 ms QRS Dur : 88 ms QT Int : 342 ms P-R-T Axes : -6 -20 24 degrees QTcB Int : 392 ms Normal sinus rhythm Normal ECG When compared with ECG of 24-Feb-2017 11:20, No significant change was found Confirmed by Enrico Arredondo ([id number]) on 06/01/2024 2:25:58 PM Referred By: REFERRED SELF Confirmed By: Enrico Arredondo
--- NOTE | 2024-06-01 14:48 | XCELERA ---
[id number]
[2024-06-01] MEDS: SODIUM CHLORIDE 0.9% 1,000 ML IV SCH (16:16)
[2024-06-01] MEDS: MELATONIN 3 MG TAB PO PRN (20:17)
[2024-06-02 06:09] LABS: BUN Creatinine Ratio 11.1 (10-20); Calcium 8.1 mg/dl (8.6-10.3); Creatinine Clr Calc Pharmacy 111.8 ml/min
[2024-06-02 07:14] VITALS: TEMP 97.7
[2024-06-02] MEDS: SODIUM CHLORIDE 0.9% 500 ML IV SCH (09:33)
[2024-06-02] MEDS: SODIUM CHLORIDE 0.9% 1,000 ML IV SCH (09:34)
--- NOTE | 2024-06-02 10:56 | Hospitalist Progress Note ---
Date of Service June 01, 2024 Assessment & Plan (1) Acute stroke due to ischemia: (2) History of renal cell cancer: Plan Patient is a 53-year-old gentleman with history of smoking, COPD, kidney cancer status post surgery, removal, C. 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 acute CVA (left side vision loss), occipital infarct 2.short segment loss of flow involving distal right POLITICAL AIDE at the P4 segment 3.hx of kidney mass s/p surgical removal 4. COPD, smoking (half pack per day; started age 14) 5. GERD 6. thoracic aneurysm 7. hypertension 8. hx of C. difficile diarrhea 9. lung nodules 10. hx of perirectal abscess 11. hx of DVT overall plan permissive hypertension for 48 hours high dose statin aspirin and plavix discuss smoking cessatnion 1. acute CVA (left side vision loss) occipital infarct f/u on brain MRI w/wo contrast (using contrast given hx of malignancy) crestor 20mg, s/p aspirin 325mg plavix 75mg spoke with neurologist; discuss smoking cessation permissive HTN 2. GERD, c/w nexium 40mg at home 3. hypertension, hx of thoracic aneurysm c/w metoprolol 25mg daily 4. kidney cancer, s/p partial nephrectomy (right side) february [address] Van Altamirano clear cell 5. lung nodules 6. rhinitis, he's on nasal add nasal saline 7. hx of C. difficile infection 8. hx of DVT, no longer on eliquis 9. obesity and diabetes, he's take ozempic 0.5mg sub-Q weekly Admission and Anticipated Discharge Date Admission Date: May 31, 2024 Subjective his vision loss persist, communicated with neurology recommended permissive HTN, IV fluid c/w aspirin, plavix and high dose statin no weakness, no numbness Review of Systems Review of Systems: Constitutional: No Weight Change, No Fever, No Chills, No Night Sweats, No Fatigue, No Malaise ENT/Mouth: no runny nose Cardiovascular: No Chest Pain, No SOB, No PND, No Dyspnea on Exertion, No Orthopnea, No Claudication, No Edema, No Palpitations Respiratory: No Cough, No Sputum, No Wheezing, No Smoke Exposure, No Dyspnea Gastrointestinal: No Nausea, No Vomiting, No Diarrhea, No Constipation, No Pain, No Heartburn, No Anorexia, No Dysphagia, No Hematochezia, No Melena, No Flatulence, No Jaundice Genitourinary: no dysuria Skin: No Skin Lesions, No Pruritis, No Hair Changes, No Breast/Skin Changes, No Nipple Discharge Neuro: No Weakness, No Numbness, No Paresthesias, No Loss of Consciousness, No Syncope, No Dizziness, No Headache no vision loss Heme/Lymph: No Bruising, No Bleeding, No Transfusions History, No Lymphadenopathy Endocrine: No Polyuria, No Polydipsia, No Temperature Intolerance Physical Exam Physical Exam: VITALS: Reviewed. GEN: Healthy appearing, well-developed, NAD. PSYCH: Good Judgment. AOx3. Normal memory, mood, and affect. HEENT -Head: NC/AT; Neuro: impaired visual field on the left side; 5/5 strength; AAox3; no pronator drift. normal finger to nose test -Nose: Normal nares. -Mouth and throat: MMM. Normal gums, muc juan, palate,. Good dentition. NECK: Supple, with no masses. CV: RRR, no m/r/g. LUNGS: CTAB, no w/r/c. ABD: Soft, NT/ND, NBS, no masses or organomegaly. : N/A MSK: No deformities, Normal gait. EXT: No clubbing, cyanosis, or edema. Results & Data Results & Data Vital Signs (Past 12 Hours) Vital Signs Temp Pulse Pulse Resp BP Pulse Ox O2 Del Method 06/02/24 08:17 55 L 06/02/24 07:14 36.5 C 68 16 108/71 95 Room Air 06/02/24 03:10 36.8 C 72 18 138/89 97 Room Air Laboratory Results Abnormal lab results 06/02/24 Range/Units 04:47 Chloride 110 H (98-107) mmol/L Calcium 8.1 L (8.6-10.3) mg/dl Diagnostic Findings Chest X-Ray 05/31/24 16:25 Exam(s): XR CXR 1 VIEW EXAM: XR Chest, 1 View CLINICAL HISTORY: Reason for exam: neuro deficit, acute stroke suspected. TECHNIQUE: Frontal view of the chest. COMPARISON: None. FINDINGS: Lungs: Minimal linear scarring right lower lobe and midlung. Otherwise, clear. No pleural effusion or consolidation. Pleural space: No pneumothorax. Heart: No cardiomegaly. Mediastinum: Unremarkable. Bones/Soft Tissues: No acute abnormality. IMPRESSION: 1. No acute process in the chest. Electronically signed by: Jie Platt M.D. 05/31/24 21:[address] 05/31/24 16:[address] without contrast CT angiogram of the neck CT angiogram of the brain with contrast Provided History: Neuro deficit Comparison: None Technique: HEAD CT: Using multidetector thin collimation helical acquisition technique, axial, coronal and sagittal CT images from the skull base to the vertex were obtained without intravenous contrast. HEAD and NECK CTA: During rapid bolus intravenous injection of nonionic contrast material, axial images were obtained using thin collimation multidetector helical technique from the base of the neck through the of vertex of the head. This CT angiogram data was reconstructed at thin intervals with mild overlap. 3D reconstructions were obtained. The axial source images, multiplanar reformations, 3D reconstructions in both maximum intensity projection display and volume rendered models were reviewed. Dose reduction techniques were achieved by using automatic exposure control and/or adjustment of mA and/or kV according to patient size and/or use of iterative reconstruction technique. Findings: Head CT: There is no intracranial hemorrhage, mass effect, or midline shift. There is loss of the ching/white matter differentiation involving a small to moderate portion of the medial and anterior right occipital lobe, series 2 image 15. This area is associated with low attenuation. Ventricles are proportionate to the cerebral sulci. Head CTA demonstrates no aneurysm. There is a short segment of occlusion appreciated of the right posterior cerebral artery as seen on series 6 image 138, which immediately reconstitutes, spanning a length of approximately 5 mm, and at the P4 segment. Remaining arteries of the [place] are patent. Neck CTA demonstrates no stenosis of the major cervical arteries. The origins of the great vessels from the aortic arch are patent. No mass is noted within the visualized portions of the cervical soft tissues or lung apices. Impression: 1. Head CTA demonstrates a short segment of loss of flow involving the distal right POLITICAL AIDE at the P4 segment, which immediately reconstitutes. Remaining arteries of the [place] are patent. 2. Neck CTA demonstrates no stenosis of the major cervical arteries. No visualized unstable plaque or findings of an embolic source. 3. 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 4. There is a left thyroid gland 2 cm nodule. Recommend nonemergent thyroid ultrasound. Findings discussed with Dr. Zimmerman by Dr. Thorpe at 4:55 PM, 05/31/2024 Electronically signed by Enrico Thorpe 05-31-2024 5:00 PM Head CTA 05/31/24 16:[address] without contrast CT angiogram of the neck CT angiogram of the brain with contrast Provided History: Neuro deficit Comparison: None Technique: HEAD CT: Using multidetector thin collimation helical acquisition technique, axial, coronal and sagittal CT images from the skull base to the vertex were obtained without intravenous contrast. HEAD and NECK CTA: During rapid bolus intravenous injection of nonionic contrast material, axial images were obtained using thin collimation multidetector helical technique from the base of the neck through the of vertex of the head. This CT angiogram data was reconstructed at thin intervals with mild overlap. 3D reconstructions were obtained. The axial source images, multiplanar reformations, 3D reconstructions in both maximum intensity projection display and volume rendered models were reviewed. Dose reduction techniques were achieved by using automatic exposure control and/or adjustment of mA and/or kV according to patient size and/or use of iterative reconstruction technique. Findings: Head CT: There is no intracranial hemorrhage, mass effect, or midline shift. There is loss of the ching/white matter differentiation involving a small to moderate portion of the medial and anterior right occipital lobe, series 2 image 15. This area is associated with low attenuation. Ventricles are proportionate to the cerebral sulci. Head CTA demonstrates no aneurysm. There is a short segment of occlusion appreciated of the right posterior cerebral artery as seen on series 6 image 138, which immediately reconstitutes, spanning a length of approximately 5 mm, and at the P4 segment. Remaining arteries of the [place] are patent. Neck CTA demonstrates no stenosis of the major cervical arteries. The origins of the great vessels from the aortic arch are patent. No mass is noted within the visualized portions of the cervical soft tissues or lung apices. Impression: 1. Head CTA demonstrates a short segment of loss of flow involving the distal right POLITICAL AIDE at the P4 segment, which immediately reconstitutes. Remaining arteries of the [place] are patent. 2. Neck CTA demonstrates no stenosis of the major cervical arteries. No visualized unstable plaque or findings of an embolic source. 3. 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 4. There is a left thyroid gland 2 cm nodule. Recommend nonemergent thyroid ultrasound. Findings discussed with Dr. Zimmerman by Dr. Thorpe at 4:55 PM, 05/31/2024 Electronically signed by Enrico Thorpe 05-31-2024 5:00 PM Neck CTA 05/31/24 16:[address] without contrast CT angiogram of the neck CT angiogram of the brain with contrast Provided History: Neuro deficit Comparison: None Technique: HEAD CT: Using multidetector thin collimation helical acquisition technique, axial, coronal and sagittal CT images from the skull base to the vertex were obtained without intravenous contrast. HEAD and NECK CTA: During rapid bolus intravenous injection of nonionic contrast material, axial images were obtained using thin collimation multidetector helical technique from the base of the neck through the of vertex of the head. This CT angiogram data was reconstructed at thin intervals with mild overlap. 3D reconstructions were obtained. The axial source images, multiplanar reformations, 3D reconstructions in both maximum intensity projection display and volume rendered models were reviewed. Dose reduction techniques were achieved by using automatic exposure control and/or adjustment of mA and/or kV according to patient size and/or use of iterative reconstruction technique. Findings: Head CT: There is no intracranial hemorrhage, mass effect, or midline shift. There is loss of the ching/white matter differentiation involving a small to moderate portion of the medial and anterior right occipital lobe, series 2 image 15. This area is associated with low attenuation. Ventricles are proportionate to the cerebral sulci. Head CTA demonstrates no aneurysm. There is a short segment of occlusion appreciated of the right posterior cerebral artery as seen on series 6 image 138, which immediately reconstitutes, spanning a length of approximately 5 mm, and at the P4 segment. Remaining arteries of the [place] are patent. Neck CTA demonstrates no stenosis of the major cervical arteries. The origins of the great vessels from the aortic arch are patent. No mass is noted within the visualized portions of the cervical soft tissues or lung apices. Impression: 1. Head CTA demonstrates a short segment of loss of flow involving the distal right POLITICAL AIDE at the P4 segment, which immediately reconstitutes. Remaining arteries of the [place] are patent. 2. Neck CTA demonstrates no stenosis of the major cervical arteries. No visualized unstable plaque or findings of an embolic source. 3. 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 4. There is a left thyroid gland 2 cm nodule. Recommend nonemergent thyroid ultrasound. Findings discussed with Dr. Zimmerman by Dr. Thorpe at 4:55 PM, 05/31/2024 Electronically signed by Enrico Thorpe 05-31-2024 5:00 PM Brain MRI 05/31/24 18:10 Exam(s): MRI HEAD W/WO Contrast EXAM: MR Head Without and With Intravenous Contrast CLINICAL HISTORY: Reason for exam: left vision loss, r/o stroke, hx of Renal Ca. TECHNIQUE: Magnetic resonance images of the head/brain without and with intravenous contrast in multiple planes. CONTRAST: IV contrast is given. COMPARISON: Head CT/CTA, same day. FINDINGS: Brain: Reduced diffusion right occipital lobe, corresponding to CT abnormality, compatible with acute infarct. No mass effect or acute hemorrhage. No mass or abnormal enhancement. No evidence to suggest metastatic disease. Mild, scattered, nonspecific, chronic white matter disease. Ventricles: No hydrocephalus or midline shift. Bones/joints: No acute finding. Soft tissues: No scalp hematoma. Visualized Sinuses: Clear. Mastoid air cells: No mastoid effusion. IMPRESSION: 1. Acute, nonhemorrhagic right occipital lobe infarct. 2. No abnormal enhancement or evidence of metastatic disease. Electronically signed by: Jie Platt M.D. 05/31/24 21:09 PM Medications Administered Current Inpatient Medications Acetaminophen (Acetaminophen 325 Mg Tab) 650 mg PO Q8H PRN PRN Reason: Pain Stop: 06/30/24 22:02 Last Admin: 06/01/24 20:17 Dose: 650 mg Al Hydrox/Mg Hydrox/Simethicone (Aluminum/Magnesium Susp 30 Ml Udc) 30 ml PO Q6H PRN PRN Reason: Dyspepsia Stop: 06/30/24 19:41 Aspirin (Aspirin 325 Mg Ectab) 325 mg PO QAM [facility] Stop: 07/01/24 08:59 Last Admin: 06/02/24 08:34 Dose: 325 mg Azelastine HCl (Azelastine Hcl 0.1% Nasal 200 Sprays/27,400 Mcg Btl) 2 sprays NS DAILY [facility] Stop: 07/01/24 08:59 Last Admin: 06/02/24 08:36 Dose: 2 sprays Clopidogrel Bisulfate (Clopidogrel Bisulfate 75 Mg Tab) 75 mg PO QAM [facility] Stop: 07/01/24 08:59 Last Admin: 06/02/24 08:36 Dose: 75 mg Sodium Chloride (Nss) 1,000 mls @ 80 mls/hr IV .[id number] [facility] Stop: 06/02/24 15:44 Last Infusion: 06/02/24 09:34 Dose: 0 mls/hr Sodium Chloride (Nss) 500 mls @ 175 mls/hr IV .[id number] [facility] Stop: 06/02/24 12:21 Last Admin: 06/02/24 09:34 Dose: 175 mls/hr Melatonin (Melatonin 3 Mg Tab) 3 mg PO HS PRN PRN Reason: Insomnia Stop: 06/30/24 19:41 Last Admin: 06/01/24 20:17 Dose: 3 mg Miscellaneous Information (Pharmacist Discharge Med Rec Consult) 1 each N/A UD PRN PRN Reason: Consult Stop: 06/30/24 20:05 Pantoprazole Sodium (Pantoprazole 40 Mg Tab) 40 mg PO [facility] Stop: 07/01/24 08:59 Last Admin: 06/02/24 08:35 Dose: 40 mg Polyethylene Glycol (Polyethylene (Miralax) 17 Gm Pack) 17 gm PO DAILY PRN PRN Reason: Constipation Stop: 06/30/24 19:41 Rizatriptan Benzoate (Rizatriptan Benzoate 10 Mg Tab) 5 mg PO Q2H PRN PRN Reason: Headache Stop: 06/30/24 22:00 Rosuvastatin Calcium (Rosuvastatin Calcium 20 Mg Tab) 20 mg PO [facility] Stop: 06/30/24 18:14 Last Admin: 06/02/24 08:35 Dose: 20 mg Triamcinolone Acetonide (Triamcinolone Acet 0.1% Cr 15 Gm Tube) 1 appln TOP BID PRN PRN Reason: itching Stop: 06/30/24 22:00 PG Care Time/CCT Total # of Minutes Spent Total Time Spent with Patient: Total time spent is greater than 50% in coordination of care (as documented) at patient's floor/unit and/or counseling patient: Coding Level of Care Code 30099 SUB INP/OBS CARE 03/10MIN Diagnoses Acute stroke due to ischemia I63.9 History of renal cell cancer Z85.528 Time Spent (min) 25
[2024-06-02 11:18] VITALS: BP 127/80; RESP 18; O2SAT 93
[2024-06-02] MEDS: LACTATED RINGER'S 1,000 ML IV SCH (12:31)
[2024-06-02] MEDS ORDERED: STROKE PATIENT DISCHARGE STA (12:34)
--- NOTE | 2024-06-02 12:41 | Discharge Summary ---
Discharge Summary Date of Service June 02, 2024 Principal Dx & Hospital Course #1 = Principal Diagnosis (1) Acute stroke due to ischemia: aspirin and plavix for 90 days per neurology high dose statin, crestor 40mg (20mg for 7 days and the increased to 40mg) (2) History of renal cell cancer: follow up with urology Plan Patient is a 53-year-old gentleman with history of smoking, COPD, kidney cancer status post surgery, removal, C. 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 acute CVA (left side vision loss), occipital infarct 2.short segment loss of flow involving distal right BOOKING AGENT at the P4 segment 3.hx of kidney mass s/p surgical removal 4. COPD, smoking (half pack per day; started age 14) 5. GERD 6. thoracic aneurysm 7. hypertension 8. hx of C. difficile diarrhea 9. lung nodules 10. hx of perirectal abscess 11. hx of DVT overall plan permissive hypertension for 48 hours high dose statin, crestor 40mg aspirin and plavix (DAPT) for 90 days per neurology recommendation discuss smoking cessatnion 1. acute CVA (left side vision loss) occipital infarct f/u on brain MRI w/wo contrast (using contrast given hx of malignancy) crestor 20mg, s/p aspirin 325mg plavix 75mg, and aspirin 81mg. spoke with neurologist; discuss smoking cessation permissive HTN 2. GERD, c/w nexium 40mg at home 3. hypertension, hx of thoracic aneurysm c/w metoprolol 25mg daily 4. kidney cancer, s/p partial nephrectomy (right side) february [address] Van Altamirano clear cell 5. lung nodules 6. rhinitis, he's on nasal add nasal saline 7. hx of C. difficile infection 8. hx of DVT, no longer on eliquis 9. obesity and diabetes, he's take ozempic 0.5mg sub-Q weekly Notes For Next Care Provider recheck H/H in 1-2 weeks Medication Changes From Visit started aspirin 81mg and plavix 75mg (need 90 days per neurology) crestor 40mg started, pravastatin 10mg stop Admission HPI Per Admitting Provider Raúl Brown is a 53-year-old gentleman with history of smoking, started age 14 and currently half a pack a day, kidney cancer status post surgery, DVT COPD, lung nodule Since this morning he has left-sided visual loss, he was seen by rice cleaning machine tender and have a normal retinal exam, he denies any pain in his eye and denied headache He was referred by rice cleaning machine tender to our emergency room for evaluation, his CT has show short segment loss of flow involving distal right BOOKING AGENT at the P4 segment was immediately with reconstitution. In addition they found acute and subacute infarct involving right occipital lobe he was started on aspirin, will begin Crestor 20 mg, begin Plavix On interview at 1 5:30 PM he denies any headache denies jaw pain denies slurred speech denies numbness tingling He does admit to family history of aneurysm and he is following with cardiology He is AO x 3 he is full code Hospital course Patient was initially presented with left-sided visual field loss, found to have occipital lobe CVA, admitted to PCU floor Started on permissive hypertension for 48-hour he received IV fluid, started aspirin and Plavix and Crestor 20 mg. His left-sided visual loss continue to improve, he have since regained about 75 to 80% of his left-sided vision He is requesting to be discharged home and he will need to hydrate himself for the next 48 to 72 hours he will be on dual antiplatelet aspirin and Plavix for 90 days and he will be discharged home with Crestor 40 mg He was advised that he should not drive after the dog and he should follow-up with ophthalmology for clearance for driving He will need to return to ER for medical eval if he have worsening vision loss dizziness numbness tingling He was prescribed Crestor 40 mg, Plavix 75 mg aspirin 81 Discharge Exam VITALS: Reviewed. WEIGHT/BMI reviewed. GEN: Healthy appearing, well-developed, NAD. -Head: NC/AT; neuro: AAOx3; left side visual loss improved; 5/5 strength. no tremor; no slurred speech; able to follow command; able to speak in full sentence -Mouth and throat: MMM. Normal gums, mucosa, palate,. Good dentition. NECK: large neck diameter CV: RRR, no m/r/g. LUNGS: CTAB, no w/r/c. ABD: Soft, NT/ND, NBS, no masses or organomegaly. : N/A SKIN: Warm, well perfused. No skin rashes or abnormal lesions. EXT: No clubbing, cyanosis, or edema. Discharge Plan Discharge Items Patient Disposition: Home - Self-Care Reason For Visit: STROKE Discharge Diagnosis: stroke Activity: Per Instructions section Activity Comment: no driving after dark. need optometry clearance Lifting: Gradually increase as tolerated Bathing: No limitations Non-emergency contact: Primary Care Provider Call non-emergency contact if: your symptoms worsen Follow-up/Referrals: Cuba Alvarado, DO [Primary Care Provider] - (Please call to schedule follow up) Diet: Low Fat Diet Comment: drink 10-12 glasses of water daily for next 3-4 days. Addtl Attending Provider Instructions: follow up with neurology about the blockage inside your head. you will need repeat imaging. you will need a higher dose of cholesterol medicine (statin, crestor 20mg) and zetia you will need to stop smoking begin plavix 75mg come back to emergency room if you have worsening vision problem, slurred speech, headache or numbness Pending Studies at Discharge: Yes Studies:: repeat CTA head and neck, check fasting cholesterol in 3 months. event monitor Stand-Alone Forms: My [facility] [employer], Smoking Cessation, Medications to Prevent Stroke Medications and DC Order Prescriptions: New aspirin 81 mg tablet,delayed release (DR/EC) 81 mg PO DAILY Qty: 30 2RF clopidogrel [Plavix] 75 mg tablet 75 mg PO DAILY Qty: 30 1RF rosuvastatin [Crestor] 40 mg tablet 40 mg PO DAILY Qty: 30 1RF Rx Instructions: take half tablet for 5 days; and the full tablet Continued rizatriptan 5 mg tablet 5 mg PO UD PRN (Reason: Headache) Patient Comments: NEVER HAD TO TAKE IT Rx Instructions: take 1 tablet at onset of headache; if no relief, may repeat 1 tablet after at least 2 hrs PO PRN; (DME) lancets [OneTouch Delica Plus Lancet] 33 gauge [facility] [place] See Rx Instructions .Route Qty: 100 3RF Rx Instructions: use to test once daily (DME) blood-glucose meter [OneTouch Verio Flex meter] Misc See Rx Instructions .Route Qty: 1 0RF Rx Instructions: use to test once daily (DME) OneTouch Verio test strips Strip See Rx Instructions .Route Qty: 100 3RF Rx Instructions: use to test once daily esomeprazole magnesium [Nexium] 40 mg capsule,delayed release(DR/EC) 40 mg PO QAM Qty: 90 3RF metoprolol succinate 25 mg tablet extended release 24 hr 25 mg PO QPM Qty: 90 3RF acetaminophen 650 mg tablet extended release 650 mg PO Q8H PRN (Reason: Pain) triamcinolone acetonide 0.1 % cream 1 applic topical BID PRN (Reason: itching) Qty: 30 0RF sildenafil 50 mg tablet 50 mg PO DAILY PRN (Reason: sexual activity) Qty: 14 3RF Rx Instructions: administer 30 minutes to 4 hours before activity azelastine 137 mcg (0.1 %) spray,non-aerosol 2 spray intranasal DAILY Rx Instructions: USE 2 SPRAYS IN EACH NOSTRIL ONCE DAILY INSTRUCTED Ozempic 0.25 mg or 0.5 mg (2 mg/3 mL) pen injector 0.5 mg subcut WK Discontinued pravastatin 10 mg tablet 10 mg PO QAM Qty: 90 3RF aspirin 325 mg tablet 325 mg PO DAILY Discharge Orders: Discharge Order (Routine); Ordered 06/02/24 Ordered By: Hoang Watts/Other Patient Handouts: COPD Quit Smoking, Stroke: Taking Medicines, Stroke: Resources and Support, Stroke: Self-Care Admission Data Admit Date/Time: 05/31/24 19:43 Attending Provider: Hoang Padilla Admit Provider: Hoang Padlila Primary Care Provider: Cuba Alvarado Other Providers: Hoang Padilla; Seok,Swapnil H. Hospital Stay Data Consultations 05/31/24 17:26 ED Decision to Admit Stat 06/01/24 07:45 Consult Neurology Routine Diagnostic Imagining Performed 05/31/24 16:25 CT angio head w con Stat CT angio neck with con Stat CT head/brain wo con Stat 05/31/24 18:10 MRI Brain [MR brain wo/w con] Stat Pending Results Patient Have Any Pending Studies at Discharge: Yes Discharge Instructions Given to Patient (Per Discharging Provider) follow up with neurology about the blockage inside your head. you will need repeat imaging. you will need a higher dose of cholesterol medicine (statin, crestor 20mg) and zetia you will need to stop smoking begin plavix 75mg come back to emergency room if you have worsening vision problem, slurred speech, headache or numbness Total Time Total Time Spent Total Time Spent (In Minutes): 36 minutes Coding Level of Care Code 75440 INP/OBS DISCH >30 MIN Diagnoses Acute stroke due to ischemia I63.9 History of renal cell cancer Z85.528 Time Spent (min) 35
[2024-06-02 14:09] VITALS: PULSE 74
--- NOTE | 2024-06-04 11:58 | Pharmacy Report ---
Pharmacist Stroke Counseling - Date of Service June 04, 2024 - Scope: Pharmacy has been consulted to provide medication discharge counseling for this patient admitted with ischemic stroke as per the Pharmacist Discharge Counseling for Stroke Patients Protocol. - Medications on Discharge: Home Medications Medication Instructions Recorded Confirmed rizatriptan 5 mg tablet 5 mg PO UD PRN Headache 06/11/21 05/31/24 acetaminophen 650 mg 650 mg PO Q8H PRN Pain 11/04/22 05/31/24 tablet,extended release azelastine 137 mcg (0.1 %) nasal 2 spray intranasal DAILY 05/31/24 05/31/24 spray semaglutide 0.25 mg or 0.5 mg (2 0.5 mg subcut WK 05/31/24 05/31/24 mg/3 mL) subcutaneous pen injector (Vennli) New Rx's Medication Instructions Recorded OneTouch Delica Plus Lancet 33 #100 ea 07/10/21 gauge (lancets) OneTouch Verio Flex meter #1 ea 07/10/21 (blood-glucose meter) OneTouch Verio test strips (blood #100 ea 07/10/21 sugar diagnostic) esomeprazole magnesium 40 mg 40 mg PO QAM #90 caps 07/06/23 capsule,delayed release (Nexium) sildenafil 50 mg tablet 50 mg PO DAILY PRN sexual activity 09/22/23 #14 tabs triamcinolone acetonide 0.1 % 1 applic topical BID PRN itching 09/22/23 topical cream #30 grams metoprolol succinate 25 mg 25 mg PO QPM #90 tabs 05/28/24 tablet,extended release 24 hr aspirin 81 mg tablet,delayed 81 mg PO DAILY #30 tabs 06/02/24 release clopidogrel 75 mg tablet (Plavix) 75 mg PO DAILY #30 tabs 06/02/24 rosuvastatin 40 mg tablet (Crestor) 40 mg PO DAILY #30 tabs 06/02/24 - Action: The above medications, specifically ones for stroke treatment/prophylaxis, have been reviewed in detail with the patient and/or patient tour sales representative(s) prior to discharge. This includes indication, common adverse reactions, drug interactions, and medication administration. Medication counseling has been employed using the teach-back method to ensure understanding. - Outcome: The patient and/or patient tour sales representative(s) have demonstrated understanding of the medications. Additional comments: - counseled patient via telephone regarding aspirin, plavix and crestor. All questions answered. Follow up appointments this week. Thank you for allowing pharmacy to be involved in the care of this patient. Please call [phone] with any additional questions
== END 2024-06-02 14:52 | disposition home or self-care (01) | DRG 66 ==
LOC: SUATTDRO → ED 16:19 → 4W 19:43